=== PATIENT | female | born 1940 | race African-American/Black ===

== ENCOUNTER → 2016-07-18 | Outpatient (CLI) | payer OTHER ==
[~2016-07-18] VITALS: Ht 160 cm; Wt 86.2 kg
[~2016-07-18] MED LIST: ACID CONTROL20 MG PO; ADVAIR HFA115 MCG/21 INH; ALBUTEROL2.5 MG/0.1 INH; ALBUTEROL2.5 MG/31 INH; ALPRAZOLAM; AMITIZA8 MCG PO; AMITRIPTYLINE H10 M1 PO; AMITRIPTYLINE H50 M2 PO; AMITRIPTYLINE H50 M3 PO; AMLODIPINE-VAL1 EAC3 PO; ARICEPT10 MG PO; ASPIRIN EC81 M1 PO; BISACODYL SUPP10 MG RE; CARAFATE 1 GM TA1 G1 PO; CARAFATE1 GM/10 ML PO; CATAPRES-TTS 10.1 MG TD; CEFDINIR300 MG PO; CELEXA 10 MG TA10 M1 PO; CELEXA PO; CLONIDINE HCL0.2 M2 PO; DIOVAN320 MG PO; DOLOPHINE HCL10 MG PO; DOMPERIDONE PO; ENEMA133 ML RC; ENOXAPARIN40 MG/0.1 SUBQ; ERYPED 200200 MG/51; ERYPED 200200 MG/51 PO; EXFORGE PO; FISH OIL 1,0001 EAC5 PO; FLEXERIL PO; FUROSEMIDE; HYDROCODON-ACE1 EA10 PO; HYDROCODON-ACE1 EAC5 PO; HYDROCODONE-AP1 EA11 PO; IRON325 PO; JANUVIA50 MG PO; LACTOSE PO; LASIX 40 MG TAB40 M1 PO; LEVAQUIN 500 M500 M5 PO; LEVAQUIN 500 M500 M9 PO; LIPITOR20 MG PO; LOPRESSOR; LOPRESSOR25 PO; MACROBID 100 M100 M1 PO; MEDROLDOSEPACK PO; METFORMIN HCL500 MG PO; METHADONE HCL 110 M1 PO; METHADOSE10 M1 PO; MOBIC7.5 MG PO; MOM PO; MORPHINE; MOTION RELIEF25 MG PO; MS CONTIN15 MG PO; MS CONTIN30 MG PO; MUCINEX TA600 MG/TA2 PO; MULTIVITAMINS PO; NALOXONE H0.4 MG/1 M IV; NEURONTIN 300300 M1 PO; NEXIUM40 MG PO; NORCO 5-325 TA1 EACH PO; NORVASC10 MG PO; NOVOLOG100 UNIT/1 SQ; NUCYNTA50 MG PO; NYSTATIN 1100000 U/M SW&SWALLOW; OMEPRAZOLE10 MG PO; ONDANSETRON HCL4 M2 PO; OPANA ER10 M1 PO; OXYBUTYNIN 5 MG5 M2 PO; OXYCODONE HCL 55 MG PO; OXYCODONE HCL5 M1 PO; OXYCONTIN10 M1 PO; OXYCONTIN10 MG PO; OXYCONTIN20 M1 PO; PAIN & FEVER325 MG PO; PEPCID40 MG PO; POTASSIUM CHLO10 ME1 PO; POTASSIUM IV; REGLAN 10 MG TA10 MG PO; ROXICODONE5 M1 PO; SENNA PO; SENNA S TABLET1 EACH PO; SIMVASTATIN40 MG PO; SIMVASTATIN5 MG PO; SPIRIVA INH; SYNTHROID75 MCG PO; TOPROL XL25 MG PO; TYLENOL325 MG PO; VENTOLIN HFA 1818 GM INH; VITAMIN B COMP1 EACH PO; VITAMIN D-32000 UNIT PO; VITAMIN D1000 UNI1 PO; VITAMINC500 PO; XANAX 0.25 MG0.25 MG PO; XOPENEX HF1 UDINHALE IH; ZOFRAN 4 MG ORAL4 MG PO
--- NOTE | ~2016-07-18 | S ---
[facility] [address] [place] [address] SURGICAL PATH RPT PROCEDURE Name: ILEANA CASE Room #: REG SANDY Diallo#: [id number] Admission: 07/18/16 Date of : 44 Discharge: Report #: [id number] Path Case #: [id number] PATHOLOGY REPORT DRAFT COLLECTION DATE: 07/18/2016 RECEIVED DATE: 07/18/2016 SPECIMEN(S) RECEIVED: Teja clemens
--- NOTE | ~2016-07-18 | P ---
[facility] [place] [address] [place] [address] PROCEDURE REPORT Name: ILEANA CASE [id number] Admission: 07/18/16 Attend Phys: Arvind Wild Discharge: Date of : 42 Report #: [id number] THIS REPORT FOR: //name// CC: Arvind Ramon DO DATE OF SERVICE: 07/18/2016 PROCEDURE PERFORMED: Colonoscopy. HISTORY OF PRESENT ILLNESS: The patient is a 76-year-old female with recent Hemoccult positive stool. She denies any obvious bright red blood per rectum or melena. She does have a family history of colon cancer in her sister. DESCRIPTION OF PROCEDURE: The risks and benefits of the procedure were explained to the patient, those risks including but not limited to bleeding, perforation, the risk of sedation. She understood these risks and gave informed consent. Sedation was given using propofol per anesthesia. Next, a digital rectal exam was initially performed, which was normal. Next, using a standard Identian colonoscope, the scope was placed in the patient's anus and advanced under direct vision to the cecum. The overall prep was good. The cecum and ileocecal valve were normal in appearance. The ascending, transverse and descending colon were normal. Multiple diverticula were noted throughout the sigmoid colon, no evidence of inflammation, otherwise normal. The rectal mucosa was normal. On retroflexion, small nonbleeding internal hemorrhoids were noted, otherwise normal colonoscopy. The scope was then withdrawn and the procedure terminated. The patient tolerated the procedure well. IMPRESSION: 1. Sigmoid diverticulosis. 2. Small internal hemorrhoids. 3. Otherwise, normal colonoscopy. RECOMMENDATIONS: 1. No signs of bleeding or stigmata of bleeding on EGD or colonoscopy today. Hemoccult positive stools may be secondary to internal hemorrhoids. If the patient has a significant history of anemia, could consider proceeding with small bowel evaluation with ____ capsule, otherwise continue to monitor hemoglobin with oral iron therapy. 2. Repeat colonoscopy in 5 years due to family history[address] [facility] [address] [place] [address] PROCEDURE REPORT Name: ILEANA CASE Room #: REG SANDY Diallo#: [id number] Admission: 07/18/16 Attend Phys: Arvind Wild Discharge: Date of : 42 Report #: [id number] Thank you for allowing me to participate in her care. By: 1144 1303 Arvind Carvajal MD /nt
--- NOTE | ~2016-07-18 | P ---
[facility] [place] [address] [address] PROCEDURE REPORT Name: ILEANA CASE Room #: REG SANDY Diallo#: [id number] Admission: 07/18/16 Attend Phys: Arvind Wild Discharge: Date of : 42 Report #: [id number] THIS REPORT FOR: //name// CC: Arvind Ramon DO DATE OF SERVICE: 07/18/2016 PROCEDURE PERFORMED: Upper endoscopy with biopsy. HISTORY OF PRESENT ILLNESS: The patient is a 76-year-old female with a history of gastroparesis, currently on erythromycin which has been minimally helpful. She had previously taken Reglan in the past without much improvement and ___ is no longer available, which was helpful. She has had a Hemoccult positive stool and nausea. Plan is for EGD and colonoscopy today. DESCRIPTION OF PROCEDURE: The risks and benefits of the procedure were explained to the patient, those risks including but not limited to bleeding, perforation, the risk of sedation. She understood these risks and gave informed consent. Sedation was given using propofol per anesthesia. Next, using a standard Liquiversen upper endoscope, the scope was placed in the patient's mouth and advanced under direct vision to the esophagus, stomach and into the second portion of the duodenum. The esophagus was normal throughout. The GE junction was normal. Overall, the gastric mucosa was normal. Because of the patient's history of nausea, biopsies were obtained to rule out the possibility of H. pylori. The pylorus was normal and patent. The duodenal bulb, first and second portion were all normal. The scope was then withdrawn and the procedure terminated. The patient tolerated the procedure well. IMPRESSION: Normal upper endoscopy. RECOMMENDATIONS: We will proceed with colonoscopy next today. Thank you for allowing me to participate in her care. By: 1142 1257 Arvind Carvajal MD /nt
--- NOTE | ~2016-07-18 | EKG ---
[address] [address] ELECTROCARDIOGRAM REPORT Name: ILEANA CASE [facility] [id number] Admission: 07/18/16 Attend Phys: Arvind Wild Discharge: Date of : 42 Report #: [id number] THIS REPORT FOR: //name// [facility] Test Date: 2016-07-18 Test Time: 10:21:57 Pat Name: ILEANA CASE Department: Room: Gender: F [employer]: LEO : 1940 Requested By: Arvind Carvajal Order Number: [id number] MD: Measurements Intervals [place] Rate: 59 P: 18 AL: 176 QRS: -34 QRSD: 86 T: -31 QT: 433 QTc: 429 Interpretive Statements Sinus rhythm Left ventricular hypertrophy Inferior infarct, old Anterior Q waves, possibly due to LVH Lateral leads are also involved Compared to ECG 12/25/2014 08:00:02 Myocardial infarct finding now present Q waves now present Left-axis deviation no longer present ST (T wave) deviation no longer present [email or web address] By: 1021 1021 Epiphany Epiphany, SD /EPI
== END | disposition home or self-care (01) ==
LOC: GI 09:31
DX: R19.5 Other fecal abnormalities (principal); K64.8 Other hemorrhoids; K57.30 Diverticulosis of large intestine without perforation or abscess without bleeding; K31.84 Gastroparesis; F32.9 Major depressive disorder, single episode, unspecified; F41.9 Anxiety disorder, unspecified; J44.9 Chronic obstructive pulmonary disease, unspecified; G47.30 Sleep apnea, unspecified; J45.909 Unspecified asthma, uncomplicated; J43.9 Emphysema, unspecified; I10 Essential (primary) hypertension; E78.00 Pure hypercholesterolemia, unspecified; D64.9 Anemia, unspecified; G89.4 Chronic pain syndrome; E03.9 Hypothyroidism, unspecified; E11.9 Type 2 diabetes mellitus without complications; Z90.710 Acquired absence of both cervix and uterus
CPT/HCPCS: 62110

== ENCOUNTER → 2016-08-10 | Outpatient (CLI) | payer OTHER ==
[~2016-08-10] VITALS: Ht 157.5 cm; Wt 91.7 kg
[~2016-08-10] MED LIST changes: +OPANA10 MG PO; +PRIMIDONE50 MG PO
--- NOTE | ~2016-08-10 | HPC ---
[facility] [address] [address] PAIN MANAGEMENT CONSULTATION Name: ILEANA CASE Room #: REG SANDY BautistaDanyaZena.#: [id number] Admission: 08/10/16 Attend Phys: Indy Marley MD Discharge: Date of : 42 Report #: [id number] THIS REPORT FOR: //name// CC: Parmjit Ramon DO Keshia Marley DATE OF SERVICE: 08/10/2016 FOLLOWUP COMPLAINT: Things are going reasonably well. FOLLOWUP HISTORY: The patient is a very pleasant 76-year-old female who has been followed for a long time in the pain clinic. As you recall, she suffers from chronic back surgery. She has failed back syndrome. She has pain radiating down into her left buttocks and into her back. She notes stiffness, burning and intense pain and this can be quite problematic with standing, walking and with weather changes. She rates her pain as 7/10 at this juncture. She feels that her medications of oxymorphone and hydrocodone are quite helpful and would like to have been renewed at this juncture. She continues to try to stretch her medications and takes them only as necessary. PHYSICAL EXAMINATION: Blood pressure is 132/88, pulse 74, respiratory rate 16, room air saturation 100. The patient has pain and discomfort in the low back area as described. She also has numbness and tingling involving her right arm and down into her fingers. IMPRESSION: 1. Failed back syndrome with continued pain radiating down into her legs, status post surgery -- failed back syndrome. 2. Cervical radiculopathy involving her right arm with pain radiating down into the right fingers. 3. Chronic obstructive pulmonary disease. The patient states that her breathing is doing relatively well. She only uses the oxygen at night. RECOMMENDATIONS: A script for her medications have been written. She will continue to take hydrocodone 7.5 mg 1 p.o. t.i.d. as needed for pain control. She also will continue with oxymorphone 10 mg 1 p.o. b.i.d. She will call us if she has any problems with her medications. We would like to thank you for letting us participate in her care. We hope she continues to improve. By: 1332 2307 Indy Marley MD /thiago
[2016-08-10 10:46] VITALS: BP 132/88
== END | disposition home or self-care (01) ==
LOC: PAIN 06:35
DX: M54.12 Radiculopathy, cervical region (principal); J44.9 Chronic obstructive pulmonary disease, unspecified

== ENCOUNTER 2016-10-05 12:38 | Inpatient (IN) | payer OTHER ==
[~2016-10-05] VITALS: Ht 167.6 cm; Wt 95.8 kg
--- NOTE | ~2016-10-05 | EKG ---
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: [id number] : 1940 Requested By: Cheo Lomas Order Number: [id number] MD: Bruce Enriquez Measurements Intervals [place] Rate: 69 P: 21 SD: 164 QRS: -34 QRSD: 83 T: -22 QT: 383 QTc: 411 Interpretive Statements Sinus rhythm Consider left atrial enlargement Left ventricular hypertrophy Inferior infarct, age indeterminate Anterior Q waves, possibly due to LVH Baseline wander in lead(s) V5,V6 Compared to ECG 07/18/2016 10:21:57 No significant change was found Electronically Signed On 10-08-2016 8:26:50 CDT by Bruce Enriquez [email or web address] <ELECTRONICALLY SIGNED> By: Bruce Enriquez MD, FAC 10/08/16 0826 1319 1319 Bruce Enriquez MD, FAC /EPI
--- NOTE | ~2016-10-05 | 2DMMODE ---
[facility] [address] [employer] [place] [address] 2 D/M-MODE ECHOCARDIOGRAM Name: EVIEILEANA SALVADOR Room #: 246-P ADM IN M.R.#: [id number] Admission: 10/05/16 Attend Phys: Juan Francisco Mast, Discharge: Date of : 44 Date of Service: 10/08/16 1030 Report #: [id number] THIS REPORT FOR: //name// APPROVED REPORT Study performed: 10/08/2016 09:37:52 EXAM: Comprehensive 2D, Doppler, and color-flow Echocardiogram Patient Location: Bedside Room #: [facility] Status: routine Other Information Study Quality: Good Indications Congestive Heart Failure COPD Diabetes Hypertension/HDD 2D Dimensions RVDd: 30.19 mm LVEF(%): 75.46 (>50%) IVSd: 10.91 (7-11mm) LVOT Diam: 21.14 (18-24mm) LVDd: 43.04 mm PWd: 12.88 (7-11mm) Ascending Ao: 31.31 (22-36mm) LVDs: 24.13 (25-40mm) Aortic Root: 29.54 mm IVC: 16.00 mm Pa's LVEF: 75.46 % Volumes Left Atrial Volume (Systole) Single Plane 4CH: 35.84 mL Single Plane 2CH: 40.84 mL LA ESV Index: 23.00 mL/m2 Aortic Valve AoV Peak Moo.: 1.75 m/s AO Peak Gr.: 12.24 mmHg LVOT Max P.69 mmHg LVOT Max V: 1.39 m/s REYMUNDO Vmax: 2.78 cm2 Mitral Valve E/A Ratio: 0.8 MV Decel. Time: 166.27 ms MV E Max Moo.: 0.93 m/s [facility] [place] [address] 2 D/M-MODE ECHOCARDIOGRAM Name: ILEANA CASE MADELEINE Room #: 246-P ADM IN M.R.#: [id number] Admission: 10/05/16 Attend Phys: Juan Francisco Mast, Discharge: Date of : 44 Date of Service: 10/08/16 1030 Report #: [id number] A Moo.: 1.15 m/s MV PHT: 48.22 ms IVRT: 103.81 ms Pulmonary Valve PV Peak Moo.: 1.12 m/s PV Peak Gr.: 5.03 mmHg Pulmonary Vein P Vein S: 0.60 m/s P Vein A: 0.17 m/s P Vein D: 0.38 m/s P Vein A Dur.: 93.4 msec P Vein S/D Ratio: 1.58 Tricuspid Valve TR Peak Moo.: 2.90 m/s RAP Estimate: 5.00 mmHg TR Peak Gr.: 33.63 mmHg Left Ventricle The left ventricle is normal size. Mild concentric left ventricular hypertrophy. Left ventricular systolic function is normal. LVEF is 65%. Mild diastolic dysfunction is present (impaired relaxation pattern). Right Ventricle The right ventricle is normal size. The right ventricular systolic function is normal. Atria The left atrium size is normal. The right atrium size is normal. Aortic Valve The aortic valve is normal in structure. No aortic regurgitation is present. There is no aortic valvular stenosis. Mitral Valve The mitral valve is normal in structure. Trace mitral regurgitation. No evidence of mitral valve stenosis. Tricuspid Valve The tricuspid valve is normal in structure. There is trace to mild tricuspid regurgitation. The right atrial pressure is estimated at 5 mmHg. PAP is estimated at 39 mmHg. Pulmonic Valve The pulmonary valve is normal in structure. There is no pulmonic valvular regurgitation. [facility] [address] [place] [address] 2 D/M-MODE ECHOCARDIOGRAM Name: ILEANA CASE Room #: 246-P ADM IN M.R.#: [id number] Admission: 10/05/16 Attend Phys: Juan Francisco Mast, Discharge: Date of : 44 Date of Service: 10/08/16 1030 Report #: [id number] [place] Vessels The aortic root is normal in size. IVC is normal in size and collapses >50% with inspiration. <Conclusion> The left ventricle is normal size. Mild concentric left ventricular hypertrophy. Left ventricular systolic function is normal. Mild diastolic dysfunction is present (impaired relaxation pattern). The right ventricle is normal size. The left atrium size is normal. The aortic valve is normal in structure. Trace mitral regurgitation. There is trace to mild tricuspid regurgitation. The right atrial pressure is estimated at 5 mmHg. PAP is estimated at 39 mmHg. <ELECTRONICALLY SIGNED> By: Nabor Shi MD 10/08/16 1030 1030 Nabor Shi MD /INF
[2016-10-05 12:42] VITALS: BP 145/93
[2016-10-05 13:16] LABS: ABG SAMPLE TYPE ARTERIAL; BE(vivo) 2.2 mmol/L (-2 to +3); HCO3 27.7 mmol/L (22.0-26.0); O2(CT) 17.6 mL/dL (15.0-23.0); O2Hb 94.6 % (92.0-98.0); PCO2 46.3 mmHg (35.0-45.0); PO2 80.5 mmHg (80.0-100.0); pH 7.394 (7.360-7.450); sO2 95.8 % (92.0-98.0); tCO2 29.1 mmol/L (24.0-30.0)
[2016-10-05 13:18] LABS: ABG COMMENT NO COMPLICATIONS; STICK SITE L.RADIAL
[2016-10-05 13:19] LABS: Pressure Support 12 cm H20
[2016-10-05 13:27] LABS: ABSOLUTE NEUTROPHILS 4.6 thou/uL (1.4-8.2); BASOPHILS 0.7 % (0.0-2.0); EOSINOPHILS 1.1 % (0.0-3.0); HEMATOCRIT 36.6 % (37.0-47.0); HEMOGLOBIN 12.2 gm/dL (12.0-15.0); LYMPHOCYTES 25.9 % (24.0-44.0); MCH 30.4 pg (26.0-34.0); MCHC 33.3 g/dL (28.0-37.0); MCV 91.5 fL (80.0-100.0); MONOCYTES 6.9 % (1.0-8.0); PLATELET COUNT 294 thou/uL (150-400); POLYS 65.4 % (36.0-66.0)
[2016-10-05 13:35] LABS: MANUAL DIFF NO
[2016-10-05 13:53] LABS: ANION GAP 12 mmol/L (7-16); BUN 16 mg/dL (7-18); CALCIUM 9.3 mg/dL (8.5-10.1); CHLORIDE 105 mmol/L (98-107); CO2 29 mmol/L (21-32); CREATININE 1.2 mg/dL (0.6-1.0); GLUCOSE 119 mg/dL (74-106); POTASSIUM 3.8 mmol/L (3.5-5.1); SODIUM 146 mmol/L (136-145)
[2016-10-05 14:00] LABS: APTT 24.2 Seconds (24.5-32.8); PROTIME 10.5 Seconds (9.3-11.4)
[2016-10-05 14:10] LABS: ALBUMIN 3.2 g/dL (3.4-5.0); ALKALINE PHOSPHATASE 85 U/L (46-116); MAGNESIUM 1.8 mg/dL (1.8-2.4); NT-PRO BRAIN NAT PEPTIDE 69 pg/mL (<300); SGOT 18 U/L (15-37); SGPT 17 U/L (30-65); TOTAL BILIRUBIN 0.2 mg/dL (<0.1-1.0); TOTAL PROTEIN 6.5 g/dL (6.4-8.2); TROPONIN-I < 0.04 ng/mL (<0.04-0.07)
[2016-10-05 14:32] LABS: CK-MB MASS < 0.5 ng/mL (<0.5-3.6)
[2016-10-05 15:47] VITALS: BP 113/72
[2016-10-05 16:45] VITALS: BP 115/68
[2016-10-05 16:48] VITALS: BP 114/75
[2016-10-05 20:53] VITALS: BP 124/65
[2016-10-06 04:49] VITALS: BP 128/72
[2016-10-06 07:04] VITALS: BP 145/117
[2016-10-06 09:28] LABS: ABG SAMPLE TYPE ARTERIAL; BE(vivo) -1.1 mmol/L (-2 to +3); HCO3 24.8 mmol/L (22.0-26.0); LACTATE 3.43 mmol/L (0.5-2.0); O2(CT) 17.8 mL/dL (15.0-23.0); O2Hb 97.5 % (92.0-98.0); PCO2 46.1 mmHg (35.0-45.0); PO2 129.2 mmHg (80.0-100.0); pH 7.349 (7.360-7.450); sO2 98.4 % (92.0-98.0); tCO2 26.2 mmol/L (24.0-30.0)
[2016-10-06 09:30] LABS: STICK SITE R.RADIAL
[2016-10-06 11:26] VITALS: BP 144/77
[2016-10-06 12:35] LABS: ANION GAP 9 mmol/L (7-16); BUN 26 mg/dL (7-18); CALCIUM 9.1 mg/dL (8.5-10.1); CHLORIDE 105 mmol/L (98-107); CO2 25 mmol/L (21-32); CREATININE 1.3 mg/dL (0.6-1.0); GLUCOSE 162 mg/dL (74-106); SODIUM 139 mmol/L (136-145)
[2016-10-06 12:48] LABS: ALBUMIN 3.2 g/dL (3.4-5.0); ALKALINE PHOSPHATASE 86 U/L (46-116); NT-PRO BRAIN NAT PEPTIDE 87 pg/mL (<300); SGOT 13 U/L (15-37); SGPT 19 U/L (30-65); TOTAL BILIRUBIN 0.3 mg/dL (<0.1-1.0); TOTAL PROTEIN 6.7 g/dL (6.4-8.2); TROPONIN-I < 0.04 ng/mL (<0.04-0.07)
[2016-10-06 15:03] VITALS: BP 107/63
[2016-10-06 19:27] VITALS: BP 152/109
[2016-10-06 23:26] VITALS: BP 143/77
[2016-10-07] VITALS (20 sets, daily range): BP systolic 123–180; BP diastolic 63–108
[2016-10-07 06:41] LABS: ABG SAMPLE TYPE ARTERIAL; BE(vivo) 0.7 mmol/L (-2 to +3); HCO3 26.1 mmol/L (22.0-26.0); LACTATE 1.68 mmol/L (0.5-2.0); O2(CT) 17.5 mL/dL (15.0-23.0); O2Hb 96.7 % (92.0-98.0); PCO2 44.6 mmHg (35.0-45.0); PO2 99.7 mmHg (80.0-100.0); pH 7.385 (7.360-7.450); sO2 97.4 % (92.0-98.0); tCO2 27.5 mmol/L (24.0-30.0)
[2016-10-07 06:42] LABS: ABG COMMENT NO COMPLICATIONS; Pressure Support 14 cm H20; STICK SITE R.RADIAL
[2016-10-08] VITALS (12 sets, daily range): BP systolic 120–164; BP diastolic 67–86
[2016-10-08 03:51] LABS: CALCIUM 8.6 mg/dL (8.5-10.1); CREATININE 1.3 mg/dL (0.6-1.0); MAGNESIUM 1.9 mg/dL (1.8-2.4); POTASSIUM 3.8 mmol/L (3.5-5.1)
[2016-10-08 04:10] LABS: HEMATOCRIT 35.9 % (37.0-47.0); HEMOGLOBIN 11.7 gm/dL (12.0-15.0); MCH 29.7 pg (26.0-34.0); MCHC 32.5 g/dL (28.0-37.0); MCV 91.1 fL (80.0-100.0); RBC 3.94 mil/uL (4.20-5.00); RDW 14.2 % (10.5-14.5); WBC 21.8 thou/uL (4.0-11.0)
[2016-10-09 05:23] LABS: HEMATOCRIT 35.8 % (37.0-47.0); HEMOGLOBIN 11.6 gm/dL (12.0-15.0); MCH 29.5 pg (26.0-34.0); MCHC 32.4 g/dL (28.0-37.0); MCV 90.8 fL (80.0-100.0); PLATELET COUNT 330 thou/uL (150-400); RBC 3.94 mil/uL (4.20-5.00); RDW 14.2 % (10.5-14.5)
[2016-10-09 05:27] LABS: CALCIUM 8.4 mg/dL (8.5-10.1); POTASSIUM 4.2 mmol/L (3.5-5.1)
[2016-10-09 05:28] LABS: MANUAL DIFF YES
[2016-10-09 07:46] LABS: ABSOLUTE NEUTROPHILS 17.9 thou/uL (1.4-8.2); ANISOCYTOSIS SLIGHT; POIKILOCYTOSIS SLIGHT; TOTAL CELL COUNT 100
[2016-10-09 11:41] VITALS: BP 157/91
[2016-10-09 16:41] VITALS: BP 158/100
[2016-10-09 17:49] VITALS: BP 151/84
[2016-10-09 20:20] VITALS: BP 142/74
[2016-10-09 23:56] VITALS: BP 156/95
[2016-10-10 03:00] LABS: HEMATOCRIT 35.4 % (37.0-47.0); HEMOGLOBIN 11.8 gm/dL (12.0-15.0); MCH 30.1 pg (26.0-34.0); MCHC 33.2 g/dL (28.0-37.0); MCV 90.6 fL (80.0-100.0); PLATELET COUNT 341 thou/uL (150-400); RBC 3.91 mil/uL (4.20-5.00); RDW 14.4 % (10.5-14.5); WBC 19.1 thou/uL (4.0-11.0)
[2016-10-10 03:13] LABS: MANUAL DIFF YES
[2016-10-10 03:18] LABS: CALCIUM 8.3 mg/dL (8.5-10.1); CREATININE 1.2 mg/dL (0.6-1.0); POTASSIUM 4.3 mmol/L (3.5-5.1)
[2016-10-10 03:23] VITALS: BP 147/85
[2016-10-10 04:31] LABS: ABSOLUTE NEUTROPHILS 16.2 thou/uL (1.4-8.2); METAMYELOCYTES 1 %; MYELOCYTES 1 %; TOTAL CELL COUNT 100
[2016-10-10 07:27] VITALS: BP 146/79
[2016-10-10 11:31] VITALS: BP 164/107
[2016-10-10 15:10] LABS: c-ANCA <1:20 titer (Neg:<1:20); p-ANCA <1:20 titer (Neg:<1:20)
[2016-10-10 15:32] VITALS: BP 139/74
[2016-10-10 20:27] VITALS: BP 174/104
[2016-10-11 04:32] VITALS: BP 156/96
[2016-10-11 07:10] VITALS: BP 194/117
[2016-10-11] MEDS ORDERED: HYDROCODONE-AP1 EA11 PO (09:43)
[2016-10-11] MEDS ORDERED: OPANA ER10 M1 PO (09:43)
[2016-10-11 10:46] LABS: HEMATOCRIT 37.1 % (37.0-47.0); HEMOGLOBIN 12.4 gm/dL (12.0-15.0); MCH 29.9 pg (26.0-34.0); MCHC 33.5 g/dL (28.0-37.0); MCV 89.3 fL (80.0-100.0); PLATELET COUNT 372 thou/uL (150-400); RBC 4.15 mil/uL (4.20-5.00); RDW 14.1 % (10.5-14.5); WBC 18.3 thou/uL (4.0-11.0)
[2016-10-11 10:48] LABS: MANUAL DIFF YES
[2016-10-11 10:53] LABS: CALCIUM 8.6 mg/dL (8.5-10.1); POTASSIUM 4.4 mmol/L (3.5-5.1)
[2016-10-11 11:20] VITALS: BP 151/94
[2016-10-11 12:00] LABS: ABSOLUTE NEUTROPHILS 14.8 thou/uL (1.4-8.2); PLATELET ESTIMATE NORMAL; TOTAL CELL COUNT 100
[2016-10-11 15:40] VITALS: BP 157/96
== END 2016-10-11 17:28 | DRG 189 ==
LOC: ER 12:38 → 4W 15:14 → EROBS 15:14 → ICU 15:14 → 4W 16:08 → ICU 10-07 08:16 → 2N 10-09 11:21
PROVIDERS: Emergency Medicine; Family Medicine; Internal Medicine; Internal Medicine Pulmonary Disease
PROC: 5A09357 Assistance with Respiratory Ventilation, Less than 24 Consecutive Hours, Continuous Positive Airway Pressure (ICD-10-PCS; principal; 2016-10-10)
DX: J96.20 Acute and chronic respiratory failure, unspecified whether with hypoxia or hypercapnia (principal); G93.41 Metabolic encephalopathy; J44.1 Chronic obstructive pulmonary disease with (acute) exacerbation; F11.20 Opioid dependence, uncomplicated; J45.901 Unspecified asthma with (acute) exacerbation; G89.4 Chronic pain syndrome; M48.00 Spinal stenosis, site unspecified; E11.9 Type 2 diabetes mellitus without complications; B02.9 Zoster without complications; F41.9 Anxiety disorder, unspecified; F32.9 Major depressive disorder, single episode, unspecified; E78.00 Pure hypercholesterolemia, unspecified; I10 Essential (primary) hypertension; E03.9 Hypothyroidism, unspecified; K21.9 Gastro-esophageal reflux disease without esophagitis; G47.33 Obstructive sleep apnea (adult) (pediatric); Z79.899 Other long term (current) drug therapy; Z86.711 Personal history of pulmonary embolism; Z88.0 Allergy status to penicillin; Z88.2 Allergy status to sulfonamides; Z88.8 Allergy status to other drugs, medicaments and biological substances; Z90.710 Acquired absence of both cervix and uterus; Z99.81 Dependence on supplemental oxygen; Z79.82 Long term (current) use of aspirin
CPT/HCPCS: 10040; 10081; 10196

== ENCOUNTER → 2016-12-12 | Outpatient (CLI) | payer OTHER ==
[~2016-12-12] VITALS: Ht 160 cm; Wt 92.5 kg
[~2016-12-12] MED LIST changes: +REQUIP1 MG PO
--- NOTE | ~2016-12-12 | HPC ---
[facility] [place] [address] PAIN MANAGEMENT CONSULTATION Name: ILEANA CASE Room #: REG [facility]#: [id number] Admission: 12/12/16 Attend Phys: Indy Marley MD Discharge: Date of : 42 Report #: [id number] THIS REPORT FOR: //name// CC: Parmjit Marley DATE OF SERVICE: 12/12/2016 FOLLOWUP COMPLAINT: "Here for my medications. My back still seems like it is getting worse, but I am not going to have another surgery." FOLLOWUP HISTORY: The patient is a 76-year-old female who has been seen and followed in the pain clinic because of chronic pain associated with her back. She is noting worsening pain and discomfort today involving the left shoulder. Palpation of this area shows a very tender point in the area of her trapezius. She feels that this has been making it more difficult for her to engage in activities of daily living as well as cause problems if she is carrying any items. PHYSICAL EXAMINATION: Blood pressure is 140/78, pulse 82, respiratory rate 16, room air saturation 98%. Height 5 feet 3 inches, weight 204 pounds, BMI is 36. She has not fallen since we saw her last. She continues to have pain and discomfort in the low back area. As you recall, she has had a significant surgery involving the lower portion of her back. She has pain and discomfort with a trigger point in the left trapezius area. Palpation in this area causes a reproduction of her pain. IMPRESSION: 1. Myofascial pain, left shoulder, trigger point. 2. Failed back syndrome, continues to find the pain radiates down into her legs, walks with use of a cane - failed back syndrome. 3. Cervical radiculopathy involving the right arm with pain radiating down into her fingers, which is a neuropathic type of discomfort. 4. Chronic obstructive pulmonary disease. The patient states her breathing is relatively stable at this juncture. Continues to use oxygen at night. RECOMMENDATIONS: We will proceed with a trigger point injection to the left trapezius area. Risks and benefits of the procedure were again reviewed. They include possibility of infection, increased muscle soreness, pneumothorax. She elects to proceed. PROCEDURE NOTE: The patient's shoulder was sterilely prepped with a chlorhexidine solution. A 25-gauge needle was then advanced into the mid portion of the trapezius involving the trigger point. After the trigger point [address] [address] PAIN MANAGEMENT CONSULTATION Name: ILEANA CASE Room #: REG CLI [facility]#: [id number] Admission: 12/12/16 Attend Phys: Indy Marley MD Discharge: Date of : 42 Report #: [id number] was elicited, a total of 10 mL of 0.5% bupivacaine and 40 mg triamcinolone was injected. The patient had no problems with respiratory symptoms during her stay. She will follow up in the near future. A script for her medications of hydrocodone 7.5 mg 1 p.o. t.i.d. and OxyContin 10 mg 1 p.o. b.i.d. has been written. Oxymorphone is no longer available. By: 0856 1301 Indy Marley MD /FANY
[2016-12-12 09:46] VITALS: BP 140/78
== END | disposition home or self-care (01) ==
LOC: PAIN 07:18
DX: M79.1 Myalgia (principal); M54.12 Radiculopathy, cervical region; J44.9 Chronic obstructive pulmonary disease, unspecified; Z68.36 Body mass index [BMI] 36.0-36.9, adult

== ENCOUNTER → 2017-02-13 | Outpatient (CLI) | payer OTHER, SELFPAY ==
[~2017-02-13] VITALS: Ht 160 cm; Wt 89.8 kg
[~2017-02-13] MED LIST changes: +EMBEDA ER 30-11 EACH PO
--- NOTE | ~2017-02-13 | HPC ---
[facility] [place] [address] [place] [address] PAIN MANAGEMENT CONSULTATION Name: ILEANA CASE Room #: REG [facility]#: [id number] Admission: 02/13/17 Attend Phys: Indy Marley MD Discharge: Date of : 42 Report #: [id number] THIS REPORT FOR: //name// CC: Parmjit Marley DATE OF SERVICE: 12/12/2016 FOLLOWUP COMPLAINT: "Bextra made me sick." FOLLOWUP HISTORY: The patient is a 76-year-old female who has been followed in the pain clinic because of chronic pain. As you recall, she has had significant back surgery. She continues to have pain and discomfort, which is problematic. She was tried on Embeda and this caused some nausea. At this juncture, we will try morphine, which she has been given a script for MS Contin 15 mg 1 p.o. b.i.d. Hopefully, she will be able to take this medication without problem. Her insurance company has refused to pay for OxyContin at this juncture. This has been the only medication, which she has been able to take. Opana was a good medication and worked well, but that one currently is no longer on the market. Her insurance company has required that she try the possible medications on their formulary and she has returned to get a new script to comply with their wishes. PHYSICAL EXAMINATION: The patient is alert. No evidence of over sedation. She did return Embeda. IMPRESSION: 1. The patient continues to have myofascial pain involving her shoulder. 2. Failed back syndrome. Continues to have pain that radiates down into her legs. Continues to walk with a cane - failed back syndrome. 3. Cervical radicular pain involving the right arm radiating down into her fingers with neuropathic types of discomfort. 4. Chronic obstructive pulmonary disease. The patient states that her breathing is relatively stable today. Continues with oxygen at night. RECOMMENDATION: The patient has been given a script for MS Contin. She will try this medication and note its efficacy. She will call us if she has any problems with her medications. We would like to thank you for letting us participate in her care. We hope she continues to improve. <ELECTRONICALLY SIGNED> By: Indy Marley MD 03/20/17 0837 1427 1448 Indy Marley MD /[facility]
[2017-02-13 10:32] VITALS: BP 126/76
== END ==
LOC: PAIN 07:04
DX: G89.29 Other chronic pain (principal); M79.1 Myalgia; M54.12 Radiculopathy, cervical region; J44.9 Chronic obstructive pulmonary disease, unspecified

== ENCOUNTER → 2017-06-19 | Outpatient (CLI) | payer OTHER, SELFPAY ==
[~2017-06-19] VITALS: Ht 157.5 cm; Wt 87.0 kg
--- NOTE | ~2017-06-19 | HPC ---
[facility] [address] [place] [address] PAIN MANAGEMENT CONSULTATION Name: ILEANA CASE Room #: REG [facility].#: [id number] Admission: 06/19/17 Attend Phys: Indy Marley MD Discharge: Date of : 44 Report #: [id number] THIS REPORT FOR: //name// CC: Parmjit Marley DATE OF SERVICE: 06/19/2017 FOLLOWUP COMPLAINT: Here for medication renewal. FOLLOWUP HISTORY: The patient is a 76-year-old female who has been followed in the pain clinic for quite a number of years. She suffers from chronic pain and discomfort involving her low back. She suffers from failed back syndrome. As you recall, she has rods as well as the pedicle screws in the lower back. She also continues to have some pain and discomfort involving her hands. She has noticed some problems with her hands at this juncture secondary to tremors. Notes that the tremors have become more and more problematic. She states that she has been seen her neurologist and that she has been started on some medications with the intent on improving her hand shaking. Still finds it is quite problematic. She is unable to do items such as quilting or sewing which required some dexterity. Overall, she is doing reasonably well with the pain medication and would like to continue its use. She has had no complications from it. Has no problems with mentation. No significant problems with bowel or bladder dysfunction. She is aware that opioid medications can be addictive/cause tolerance. Overall, her medications going reasonably well and she would like to continue with it at the current dosing. ALLERGIES: PENICILLIN, SULFA, CHLORZOXAZONE. CURRENT MEDICATIONS: Morphine sulfate 15 mg b.i.d., hydrocodone 7.5 mg 1 p.o. t.i.d., Requip 1 mg t.i.d., AccuNeb 2.5/3 2 puffs inhalation p.r.n., asthma/COPD, oxybutynin 5 mg at bedtime, amlodipine/valsartan 10/325, iron 325, Aricept 10 mg at bedtime, erythromycin 200 mg before meals, Nexium 40 mg, metoprolol 25 mg XL b.i.d., metformin 500 mg b.i.d., Zofran 4 mg q. 6 hours p.r.n. nausea and vomiting, Diovan 320, Neurontin 300 mg t.i.d., amitriptyline 500 mg, Synthroid 75 mcg, Lipitor 20 mg at bedtime, vitamin D3, ascorbic acid 500 mg, Celexa 10 mg, aspirin 81 mg, multivitamin, Januvia 50 mg, Lasix 40 mg tablet, alprazolam 0.25 mg, anxiety, potassium 10 mEq b.i.d., clonidine 0.2 mg b.i.d. PAIN CLINIC ASSESSMENT: 1. History of osteoarthritis, has problems with her hands, knees and back, not being treated for rheumatoid arthritis. 2. Height 5 feet 2 inches, weight 191 pounds, BMI 35.1. [address] [address] PAIN MANAGEMENT CONSULTATION Name: ILEANA CASE Room #: REG [facility]#: [id number] Admission: 06/19/17 Attend Phys: Indy Marley MD Discharge: Date of : 42 Report #: [id number] 3. Vital signs, blood pressure 146/98, pulse 77, respiratory rate 20, room air saturation 100%. 4. Pain intensity 10. 5. Fall risk. The patient does need some help standing. She uses a cane. She has not fallen in the last 3 months. 6. Blood thinners. The patient is not on a blood thinner. 7. History of hypertension. The patient has been treated for hypertension. 8. Opioid therapy greater than 6 weeks. The patient is on regimen and receives opioid medications from the pain clinic. 9. Risk assessment tool, opioid risk tool. 10. Functional assessment tool, showing some moderate problems with activity of daily living because of her pain. 11. Recreational drug use. Denies use of recreational drugs. 12. Tobacco: The patient has never smoked. 13. Alcohol. The patient denies use of alcoholic beverages. PHYSICAL EXAMINATION: GENERAL: The patient is a well-developed black female, appears her stated age. She is alert and oriented x 3. Affect is appropriate. The patient is somewhat of nervous, disposition around her. Hands are shaking somewhat vigorously secondary to "tremors." HEENT: Normocephalic, atraumatic. Extraocular eye muscles intact. Hearing is within normal limits. Mucous membranes are moist. Sclerae is not injected. NECK: Without adenopathy. HEART: Regular rate. ABDOMEN: Protuberant. CHEST: Clear to auscultation, somewhat decreased breath sounds. EXTREMITIES: Upper extremities, some weakness in the right arm. The patient has some significant movement/jitteriness in her hands. Jitteriness persist even with movement. Has some difficulty folding up the scripts she has been handed because of movement. Lower extremity, the patient complains of pain and discomfort in the lower portion of her back with pain radiating down into her legs bilaterally. IMPRESSION: 1. Failed back syndrome, which continues to radiate down into her legs. The patient walks with a cane. 2. Continue myofascial pain involving her shoulder. 3. Cervical pain involving the right arm with radiation down into her fingers with neuropathic type of pain and discomfort. 4. Jitteriness. The patient states that she is taking Requip 3 mg daily for the nervousness in her hands. 5. Chronic obstructive pulmonary disease states that her breathing is relatively stable. 6. Oxygen use at night. 7. Hypertension. [facility] [address] [place] [address] PAIN MANAGEMENT CONSULTATION Name: ILEANA CASE Room #: REG [facility].#: [id number] Admission: 06/19/17 Attend Phys: Indy Marley MD Discharge: Date of : 44 Report #: [id number] 8. Hypothyroidism. 9. Gastroparesis. 10. History of IVC filter. 11. History of seizure at the time of her lumbar laminectomy. 12. Asthma. 13. PE in 2008. 14. History of shingles. RECOMMENDATIONS: We discussed treatment options with the patient. We will continue with her MS Contin. A script for her hydrocodone has been written. The patient continues to have a significant amount of nervousness. She states that she will continue to follow up with her primary physician/neurologist regarding the jitteriness involving her hands The patient will follow up in the future as needed. We would like to thank you for letting us participate in her care. We hope she continues to improve. <ELECTRONICALLY SIGNED> By: Indy Marley MD 06/28/17 08 1348 0012 Indy Marley MD /thiago
[2017-06-19 10:53] VITALS: BP 146/98
== END ==
LOC: PAIN 06:55
DX: M54.2 Cervicalgia (principal); J44.9 Chronic obstructive pulmonary disease, unspecified; E03.9 Hypothyroidism, unspecified; I10 Essential (primary) hypertension; M79.1 Myalgia; K31.84 Gastroparesis

== ENCOUNTER → 2017-09-13 | Outpatient (CLI) | payer OTHER, SELFPAY ==
[~2017-09-13] VITALS: Ht 160 cm; Wt 84.8 kg
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
[2017-09-13 10:55] VITALS: BP 129/85
== END ==
LOC: PAIN 06:54
DX: M54.5 Low back pain (principal); M54.2 Cervicalgia; G89.29 Other chronic pain; M79.1 Myalgia; J44.9 Chronic obstructive pulmonary disease, unspecified; E03.9 Hypothyroidism, unspecified; K31.84 Gastroparesis; R45.0 Nervousness

== ENCOUNTER → 2018-01-17 | Outpatient (CLI) | payer OTHER ==
[~2018-01-17] VITALS: Ht 160 cm; Wt 84.8 kg
[~2018-01-17] MED LIST changes: +SINGULAIR 10 MG10 M1 PO
[2018-01-17 10:55] VITALS: BP 139/97
== END ==
LOC: PAIN 06:51
DX: M54.5 Low back pain (principal); M25.559 Pain in unspecified hip; M79.605 Pain in left leg; M79.604 Pain in right leg; Z79.899 Other long term (current) drug therapy; Z79.891 Long term (current) use of opiate analgesic; Z72.89 Other problems related to lifestyle

== ENCOUNTER → 2018-05-07 | Outpatient (CLI) | payer OTHER ==
[~2018-05-07] VITALS: Ht 160 cm; Wt 85.3 kg
--- NOTE | ~2018-05-07 | HPC ---
[facility] [place] [address] PAIN MANAGEMENT CONSULTATION Name: ILEANA CASE Room #: REG [facility].#: [id number] Admission: 05/07/18 ������������������ Attend Phys: Indy Marley MD Discharge: ������������������ Date of : 44 Report #: [id number] THIS REPORT FOR: //name// CC: Parmjit Ramon DO Keshia Marley DATE OF SERVICE: 05/07/2018 CHIEF COMPLAINT: Here for renewal of the medications. I did have the flu. HISTORY: The patient is a 77-year-old female who has been followed in the pain clinic for quite a number of years. As you recall, she has chronic back pain. She has had back surgeries on a number of occasions. She still continues to have pain as a result of failed back syndrome. She has recently had the flu. States that she feels like she is getting over it. She did take a lot out of her. She feels that her medications continue to be helpful. She has returned today for renewal of the medications. She rates her pain as 7/10. Continues to use oxygen at home. Has pain in the low back area as well as pain down into her legs bilaterally. Continues to have some exacerbation of pain, which she is standing, walking, and with the changes in weather pattern we had found it trying to stay abreast of her pain. ALLERGIES: PENICILLIN, SULFA, CHLORZOXAZONE. MEDICATIONS: Morphine sulfate 15 mg b.i.d., hydrocodone 7.5 mg t.i.d., Requip 1 mg t.i.d., AccuNeb 2.5/3 2 puffs inhale elevation, asthma/COPD. Again, that was COPD, 5 mg at bedtime, amlodipine/valsartan 10/325, iron 325 mg, Aricept 10 mg at bedtime, Nexium 40 mg, metoprolol 25 mg XL b.i.d., metformin 500 mg b.i.d., Zofran 4 mg q. nausea, Diovan 320, Neurontin 300 mg t.i.d., amitriptyline, Synthroid 7.5 mcg, Lipitor 20 mg at bedtime, multivitamin D3, ascorbic acid 500 mg, Celexa 10 mg, aspirin 81 mg, multivitamin, Januvia 50 mg, Lasix 40 mg, alprazolam 0.25 mg, potassium 10 mEq b.i.d., Klor-Con, clonidine 0.2 mg b.i.d. PAIN CLINIC ASSESSMENT/PQRS: 1. The patient has a history of osteoarthritis involving her hands, knees, back and the patient is not being treated for rheumatoid arthritis. 2. Height 5 feet 3 inches, weight 180 pounds, BMI is 33. 3. Vital Signs: Blood pressure 132/83, pulse 77, respiratory rate 15, room air saturation 98%. 4. Pain intensity 7/10. 5. Fall risk. The patient has not fallen in the past 3 months. Continues to use her cane. 6. Blood thinner. The patient is not on a blood thinning medication. 7. Hypertension. The patient is being treated for hypertension. [address] [address] PAIN MANAGEMENT CONSULTATION Name: ILEANA CASE Room #: REG [facility].#: [id number] Admission: 05/07/18 ������������������ Attend Phys: Indy Marley MD Discharge: ������������������ Date of : 44 Report #: [id number] 8. Opioid greater than 6 weeks. The patient receives her medication from one source, the pain clinic. 9. Risk assessment tool, low for opioid use. 10. Functional assessment tool . 11. Recreational drug use. The patient denies use of recreational drugs. 12. Tobacco: The patient denies use of tobacco. 13. Alcohol: The patient denies frequent use of alcoholic beverages. PHYSICAL EXAMINATION: GENERAL: The patient is a well-developed, well-nourished black female, appears her stated age. She is alert and oriented x 3. Affect is appropriate. Speech is fluent. HEENT: Normocephalic, atraumatic. Extraocular muscles intact. Sclerae nonicteric. Mucous membranes are moist. NECK: Without adenopathy or JVD. HEART: Regular rate. ABDOMEN: Nontender. Bowel sounds present. CHEST: Decreased breath sounds bilaterally. EXTREMITIES: The patient without significant scoliosis, kyphosis or lordosis. The patient has some jitteriness months her hands bilaterally. Muscle strength in the upper extremity judged to be 4+/5 for the major muscle groups and in the lower extremity, 5-/5 for the lower extremities. The patient has pain and discomfort in low back area. IMPRESSION: 1. Failed back syndrome with continued pain radiating down into the legs. The patient walks with use of a cane. 2. Continued myofascial pain involving her shoulders. 3. Cervical pain involving the right arm with radiation down to the fingers with neural past discomfort. 4. Jitteriness. The patient states she continues to take Requip for this problem. 5. Chronic obstructive pulmonary disease. Her breathing is stable. 6. Oxygen use at night. 7. Hypothyroidism. 8. gastroparesis. 9. History of IVC filter placement. 10. History of seizures at the time of lumbar laminectomy. 11. Asthma. 12. History of shingles. RECOMMENDATIONS: We discussed treatment options. At this juncture, the patient feels her medications are working reasonably well. She would like to continue their use. She is taking them as prescribed. She is not having any complications. A script for her medications have been rewritten. She will continue with MS Contin 15 mg 1 p.o. b.i.d., hydrocodone 7.5 mg, a total of [address] [address] PAIN MANAGEMENT CONSULTATION Name: ILEANA CASE Room #: REG [facility].#: [id number] Admission: 05/07/18 ������������������ Attend Phys: Indy Marley MD Discharge: ������������������ Date of : 44 Report #: [id number] tablets daily. She will call us if she has any concerns. We would like to thank you for letting us participate in her care. We hope she continues to improve. ��������������������������������������������� ���������������������������������������� By: ��������������������������������������������� 1549 1844 Indy Marley MD /FANY
[2018-05-07 12:38] VITALS: BP 132/83
--- NOTE | 2018-05-07 12:43 | NUR ---
Pain Clinic Assessment: 1. History of Osteoarthritis: HANDS KNEES BACK History of Rheumatoid Arthritis: Not Applicable 2. Height: 5 ft. 3 in. 160.0 cm. Weight: 188.0 lb. oz. 85.276 kg. Patient's BMI: 33.3 3. Vital Signs: BP: 132/83 Pulse: 77 Resp: 15 Temp: 02 Sat: 98 ECG Mon: 4. Pain Intensity: 7 5. Fall Risk: Dizziness: N Needs help standing or walking: Y Fallen in the last 3 months: N Fall risk comments: USES CANE 6. Patient on Blood Thinner: None 7. History of Hypertension: Y 8. Opioid Therapy greater than 6 weeks: Y Opiate Contract Signed: 12/12/16 9. Risk Assessment Tool Provided: Opioid Risk Tool 10. Functional Assessment Tool: 11. Recreational Drug Use: Never Drug Type: Tobacco Use: Never Smoker Tobacco Type: Amount or Packs/day: How Many Years: Alcohol Use: Past use Frequency: Quant:
== END ==
LOC: PAIN 07:44
DX: M54.5 Low back pain (principal); M54.2 Cervicalgia; M79.18 Myalgia, other site; J44.9 Chronic obstructive pulmonary disease, unspecified; E03.9 Hypothyroidism, unspecified; R45.0 Nervousness; Z79.899 Other long term (current) drug therapy; Z86.69 Personal history of other diseases of the nervous system and sense organs; Z99.81 Dependence on supplemental oxygen; Z86.19 Personal history of other infectious and parasitic diseases; Z95.828 Presence of other vascular implants and grafts

== ENCOUNTER → 2018-08-15 | Outpatient (CLI) | payer OTHER ==
[~2018-08-15] VITALS: Ht 157.5 cm; Wt 86.2 kg
[~2018-08-15] MED LIST changes: +CATAPRES0.2 MG PO
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
[2018-08-15 09:01] VITALS: BP 138/82
--- NOTE | 2018-08-15 09:07 | NUR ---
Pain Clinic Assessment: 1. History of Osteoarthritis: HANDS KNEES BACK History of Rheumatoid Arthritis: Not Applicable 2. Height: 5 ft. 2 in. 157.5 cm. Weight: 190.0 lb. oz. 86.184 kg. Patient's BMI: 34.7 3. Vital Signs: BP: 138/82 Pulse: 86 Resp: 16 Temp: 02 Sat: 98 ECG Mon: 4. Pain Intensity: 8 5. Fall Risk: Dizziness: N Needs help standing or walking: N Fallen in the last 3 months: N Fall risk comments: USES CANE 6. Patient on Blood Thinner: None 7. History of Hypertension: Y 8. Opioid Therapy greater than 6 weeks: Y Opiate Contract Signed: 12/12/16 9. Risk Assessment Tool Provided: 0-LOW 10. Functional Assessment Tool: 11. Recreational Drug Use: Never Drug Type: Tobacco Use: Never Smoker Tobacco Type: Amount or Packs/day: How Many Years: Alcohol Use: Past use Frequency: Quant:
== END ==
LOC: PAIN 06:46
DX: M54.2 Cervicalgia (principal); M25.511 Pain in right shoulder; M79.10 Myalgia, unspecified site; M25.512 Pain in left shoulder; J44.9 Chronic obstructive pulmonary disease, unspecified; E03.9 Hypothyroidism, unspecified; K31.84 Gastroparesis; Z95.828 Presence of other vascular implants and grafts; Z79.899 Other long term (current) drug therapy; Z99.81 Dependence on supplemental oxygen

== ENCOUNTER → 2018-12-03 | Outpatient (CLI) | payer OTHER ==
[~2018-12-03] VITALS: Ht 160 cm; Wt 85.3 kg
[~2018-12-03] MED LIST changes: +CLONAZEPAM 0.50.5 M1 PO; +CLOPIDOGREL75 MG PO; +COZAAR 50 MG TA50 M1 PO; +FLONASE 0.05%50 MCG NASAL; +GABAPENTIN100 MG PO; +HYDRALAZINE 10M10 MG PO; +HYDROCODON-ACE1 EAC7 PO; +MIRALAX17 GM PO; +NAMENDA 5 MG TAB5 M1 PO; +REMERON15 MG PO; +TRIAMCINOLONE A15 G3 TOP; +VALTREX 500 MG500 MG PO; +VOLTAREN GEL 1100 G2 TOP
[2018-12-03 12:52] VITALS: BP 151/105
--- NOTE | 2018-12-03 12:52 | NUR ---
Pain Clinic Assessment: 1. History of Osteoarthritis: HANDS KNEES BACK History of Rheumatoid Arthritis: Not Applicable 2. Height: 5 ft. 3 in. 160.0 cm. Weight: 188.0 lb. oz. 85.276 kg. Patient's BMI: 33.3 3. Vital Signs: BP: 151/105 Pulse: 73 Resp: 18 Temp: 02 Sat: 99 ECG Mon: 4. Pain Intensity: 7 5. Fall Risk: Dizziness: N Needs help standing or walking: N Fallen in the last 3 months: N Fall risk comments: USES CANE 6. Patient on Blood Thinner: None 7. History of Hypertension: Y 8. Opioid Therapy greater than 6 weeks: Y Opiate Contract Signed: 12/12/16 9. Risk Assessment Tool Provided: 0-LOW 10. Functional Assessment Tool: 11. Recreational Drug Use: Never Drug Type: Tobacco Use: Never Smoker Tobacco Type: Amount or Packs/day: How Many Years: Alcohol Use: Past use Frequency: Quant:
--- NOTE | 2018-12-04 11:24 | HPC ---
[facility] [address] [place] [address] PAIN MANAGEMENT CONSULTATION Name: ILEANA CASE Room #: REG [facility].#: [id number] Admission: 12/03/18 Attend Phys: Radha Terrell Discharge: Date of : 42 Report #: [id number] THIS REPORT FOR: //name// CC: Radha Alamoa Daniel DATE OF SERVICE: 12/03/2018 CHIEF COMPLAINT: Chronic low back pain, status post surgery. HISTORY OF PRESENT ILLNESS: This is a 78-year-old female who returns to the pain clinic today for a refill of her medications that she uses to help treat her ongoing low back pain and failed back surgeries. She also has bilateral leg pain. She feels that her legs are becoming more weak and having increasing burning, rating her pain score as 7/10. Pain is exacerbated with standing and walking and weather changes, but her medications are helpful as well as heat. She denies any problem with constipation or daytime sleepiness from her medications. ALLERGIES: PENICILLIN, SULFA AND CHLORZOXAZONE. CURRENT LIST OF MEDICATIONS: Morphine sulfate 15 mg b.i.d., hydrocodone 7.5/325 t.i.d., primidone 50 mg, Singulair 10 mg, Carafate, ropinirole 1 mg, albuterol, oxybutynin 5 mg, amlodipine, iron, Aricept 10 mg, erythromycin, Nexium 40 mg, metoprolol 25 mg, metformin 500 mg, valsartan 320 mg, amitriptyline 50 mg, Synthroid 75 mcg, Lipitor 20 mg, vitamin D, vitamin C, Celexa 10 mg, aspirin, multivitamin, Januvia 50 mg, Lasix 40 mg, alprazolam p.r.n., potassium and clonidine 0.2 mg. PQRS: 1. She has a history of arthritic changes in her hands, knees and back. Denies any rheumatoid arthritis. 2. Height is 5 feet 3 inches, weight is 188, BMI is 33. 3. Vital signs 151/105, pulse is 73, respirations 18, oxygen sat is 99. 4. Pain score is 7/10. 5. Denies dizziness. Does use a cane for walking at all times. Has not fallen in the last 3 months. 6. The patient is not on any blood thinners, but does take medicine for hypertension. 7. Opioid therapy is greater than 6 weeks; therefore, an opiate signed contract is on the chart. Risk assessment tool is low. Functional assessment is 22/70. 8. Recreational drug use, she denies. She does not smoke and has used alcohol in the past. According to the prescription monitoring system, the patient is filling appropriately. She is due in a timely fashion for her medications slightly [address] [address] PAIN MANAGEMENT CONSULTATION Name: EVIEILEANA Lily Room #: REG [facility] Jennifer.#: [id number] Admission: 12/03/18 Attend Phys: Radha Terrell Discharge: Date of : 42 Report #: [id number] longer than 3 months. PHYSICAL EXAMINATION: GENERAL: This is a well-developed, well-nourished black female who appears her stated age. She is alert and oriented and her pain score number is 7/10 today. HEENT: Normocephalic, atraumatic. Extraocular muscles are intact. Mucous membranes are moist. NECK: Without adenopathy or JVD. EXTREMITIES: Upper extremity strength 4/5, has some tremors involving her hands. MUSCULOSKELETAL: Lower extremity strength judged to be 4/5 bilaterally, weaker on the left than the right. The patient uses a cane at all times. She has discomfort in her lumbar spine that radiates into her bilateral legs with burning in her legs. IMPRESSION: 1. Failed back syndrome with lumbar radiculopathy. 2. Myofascial pain. 3. Cervical radiculopathy. 4. Chronic obstructive pulmonary disease. 5. Oxygen use at night. 6. History of shingles. 7. Management of opioids under terms of written opioid agreement. We reviewed the fact that opiate medications are being used to provide analgesia adequate to support activities of daily living, not attempting to achieve a specific pain score on the 0-10 Visual Analog Scale. The current opiate medications are providing sufficient analgesia to allow the patient to participate in activities of daily living. The patient is not exhibiting any aberrant behavior suggestive of drug diversion. The patient is not having any adverse reactions to medications. The patient is not suffering from daytime somnolence or mental acuity changes. The patient is managing opiate-induced constipation with appropriate dcjp-imz-[id number] agents and dietary considerations. The patient was counseled on concern for caution with operating a motor vehicle while using opiate medications. A physical exam was performed and the patient's functional status was evaluated. All patients with back pain were advised against the bed rest greater than 4 days and were advised to return to normal activities. Pain score assessment was noted and the treatment plan was reviewed with the patient. All current medications, both prescribed and OTC were reviewed and reconciled on the electronic medical record. Tobacco screening was accomplished and smoking cessation was advised when indicated. BMI was noted and diet/exercise modification was recommended for all patients following outside normal parameters. [address] [address] PAIN MANAGEMENT CONSULTATION Name: ILEANA CASE Room #: REG [facility]#: [id number] Admission: 12/03/18 Attend Phys: Radha Terrell Discharge: Date of : 42 Report #: [id number] I reviewed with the patient today their responsibilities to safeguard prescription medications, reviewed their responsibility to utilize medications only as prescribed by the physician. They are to seek and receive pain medications only from 1 physician group ( [facility]). They are to use 1 pharmacy and keep the clinic informed if they change pharmacies. Their responsibilities include making followup visits in a timely fashion and to avoid abrupt discontinuation of medication usage. Their responsibilities further include bringing their medications (bottles from the pharmacy with residual pills) to the visit for possible confirmation of pill counts and the patient understands it is their responsibility to submit to random drug screens to ensure both that the medications prescribed are present, and that no other controlled substances are present. All prescriptions provided today were generated electronically. RECOMMENDATIONS: 1. We discussed treatment options with the patient today. The patient finds the morphine and hydrocodone beneficial in controlling her pain. Scripts given today for 15 mg of morphine b.i.d., quantity 60 for today and 4-week release and hydrocodone 7.5/325, #90, for today and 4-week release. This places the patient at 42 morphine mEq per day well under the CDC guidelines. 2. The patient believes she is having increased burning in her legs, though it seems that she has reported this for several months. She has trialed gabapentin in the past, unsure if it was beneficial or not, so we have elected to restart this medication at a very low dose and titrating slowly 100 mg at bedtime for a week, then 200 mg at bedtime for a week with our goal of 300 mg at bedtime. The patient is to stay on the lowest most effective dose that does control some of her burning. If at 300, she still continues to notice significant burning in her bilateral legs, she will call our office and we may increase this medicine during the day. 3. The patient did see Dr. Jai Marley today who collaborated care as well. <ELECTRONICALLY SIGNED> By: Radha Terrell 12/04/18 1124 1416 0029 Radha Terrell /thiago
== END ==
LOC: PAIN 07:10
DX: Z88.2 Allergy status to sulfonamides (principal); M54.16 Radiculopathy, lumbar region; M54.12 Radiculopathy, cervical region; G89.29 Other chronic pain; J44.9 Chronic obstructive pulmonary disease, unspecified; Z79.891 Long term (current) use of opiate analgesic; Z88.0 Allergy status to penicillin; Z79.899 Other long term (current) drug therapy

== ENCOUNTER 2018-12-04 19:10 | Inpatient (IN) | payer OTHER ==
[~2018-12-04] VITALS: Ht 160 cm; Wt 84.0 kg
[2018-12-04] VITALS (9 sets, daily range): BP systolic 135–153; BP diastolic 72–90
[~2018-12-04 19:10] MED LIST changes: -CLONAZEPAM 0.50.5 M1 PO; -CLOPIDOGREL75 MG PO; -COZAAR 50 MG TA50 M1 PO; -FLONASE 0.05%50 MCG NASAL; -HYDRALAZINE 10M10 MG PO; -HYDROCODON-ACE1 EAC7 PO; -MIRALAX17 GM PO; -NAMENDA 5 MG TAB5 M1 PO; -REMERON15 MG PO; -TRIAMCINOLONE A15 G3 TOP; -VALTREX 500 MG500 MG PO; -VOLTAREN GEL 1100 G2 TOP
[2018-12-04 19:30] LABS: ABSOLUTE NEUTROPHILS 6.6 thou/uL (1.4-8.2); BASOPHILS 1.1 % (0.0-2.0); EOSINOPHILS 1.4 % (0.0-3.0); HEMATOCRIT 37.9 % (37.0-47.0); HEMOGLOBIN 12.1 gm/dL (12.0-15.0); LYMPHOCYTES 25.9 % (24.0-44.0); MCH 29.2 pg (26.0-34.0); MCV 91.4 fL (80.0-100.0); MONOCYTES 7.6 % (1.0-8.0); PLATELET COUNT 324 thou/uL (150-400); RBC 4.15 mil/uL (4.20-5.00); RDW 14.2 % (10.5-14.5); WBC 10.3 thou/uL (4.0-11.0)
[2018-12-04 19:38] LABS: ANION GAP 10 mmol/L (7-16); BUN 14 mg/dL (7-18); CALCIUM 9.3 mg/dL (8.5-10.1); CHLORIDE 106 mmol/L (98-107); CO2 26 mmol/L (21-32); CREATININE 1.3 mg/dL (0.6-1.0); GLUCOSE 108 mg/dL (74-106); POTASSIUM 3.9 mmol/L (3.5-5.1); SODIUM 142 mmol/L (136-145)
[2018-12-04 19:44] LABS: APTT 26.2 Seconds (24.5-32.8); PROTIME 10.7 Seconds (9.3-11.4)
[2018-12-04 19:48] LABS: ALBUMIN 3.1 g/dL (3.4-5.0); SGOT 17 U/L (15-37); SGPT 9 U/L (30-65); TOTAL BILIRUBIN 0.3 mg/dL (<0.1-1.0); TOTAL PROTEIN 6.4 g/dL (6.4-8.2); TROPONIN-I <0.06 ng/mL (<0.06)
--- NOTE | 2018-12-04 21:43 | NUR ---
ATTEMPTED TO CALL REPORT SPOKE TO AUN WHO REQUESTS TO WAIT 30 MIN THEN CALL BACK FOR REPORT
[2018-12-05] VITALS (39 sets, daily range): BP systolic 125–162; BP diastolic 71–102
--- NOTE | 2018-12-05 03:25 | NUR ---
PT ARRIVED IN ICU FROM ER AT 2215 YESTERDAY. PT RECEIVED TPA IN ER. NIH SCALE ASSESSED PER PROTOCOL. PT IS SHOWING IMPROVEMENT IN MOVEMENT OF LT ARM AND LEG. SENSATION HAS ALSO IMPROVED ON THE LEFT SIDE. PT STRUGGLES WITH SPEECH AND HAS PROMINENT LOWER FACIAL DROOP, GREATER ON THE RT THAN LT. PT WAS ALSO C/O A HEADACHE WHEN ARRIVING IN THE ICU. TYLENOL SUPPOSITORY GIVEN. WILL CONTINUE TO MONITOR AND FOLLOW THE PLAN OF CARE.
[2018-12-05 05:06] LABS: HEMATOCRIT 35.7 % (37.0-47.0); HEMOGLOBIN 11.7 gm/dL (12.0-15.0); MCH 29.7 pg (26.0-34.0); MCHC 32.7 g/dL (28.0-37.0); MCV 90.9 fL (80.0-100.0); RBC 3.93 mil/uL (4.20-5.00); RDW 14.2 % (10.5-14.5); WBC 9.8 thou/uL (4.0-11.0)
[2018-12-05 05:24] LABS: ANION GAP 9 mmol/L (7-16); BUN 12 mg/dL (7-18); CHLORIDE 107 mmol/L (98-107); CHOLESTEROL 143 mg/dL (<200); CO2 28 mmol/L (21-32); CREATININE 1.1 mg/dL (0.6-1.0); GLUCOSE 95 mg/dL (74-106); HDL CHOLESTEROL 55 mg/dL (>40); LDL CHOLESTEROL 80 mg/dL (<100); POTASSIUM 3.7 mmol/L (3.5-5.1); SODIUM 144 mmol/L (136-145); TC:HDL 2.6 Ratio (Not establshd); TRIGLYCERIDE 42 mg/dL (<150); VLDL 8 mg/dL (<40)
[2018-12-05 05:38] LABS: SERUM ASSESSMENT Clear
[2018-12-05 06:01] LABS: URINE BILIRUBIN NEGATIVE (Negative); URINE BLOOD NEGATIVE (Negative); URINE CLARITY CLEAR; URINE COLOR YELLOW; URINE GLUCOSE-RANDOM* NEGATIVE (Negative); URINE KETONES NEGATIVE (Negative); URINE LEUKOCYTES-REFLEX NEGATIVE (Negative); URINE NITRITE-REFLEX NEGATIVE (Negative); URINE PROTEIN (DIPSTICK) NEGATIVE (Negative); URINE UROBILINOGEN 0.2 E.U./dl (0.2-1.0)
--- NOTE | 2018-12-05 08:30 | NUR ---
2D ECHO with bubble study at bedside, negative for PFO.
--- NOTE | 2018-12-05 09:51 | 2DMMODE ---
[facility] [address] [place] [address] 2 D/M-MODE ECHOCARDIOGRAM Name: EVIEILEANA Bautista Room #: 246-P [facility] IN .R.#: [id number] Admission: 12/04/18 Attend Phys: Hannah Cerda Discharge: Date of : 42 Report #: [id number] THIS REPORT FOR: //name// APPROVED REPORT Study performed: 12/05/2018 08:20:48 EXAM: Comprehensive 2D, Doppler, and color-flow Echocardiogram Patient Location: ICU Room #: [facility] Status: routine BSA: 1.86 HR: 62 bpm BP: 152/82 mmHg Rhythm: NSR Other Information Study Quality: Good Indications COPD CVA/TIA Diabetes Hypertension/HDD Echo Enhancing Agent Indication: Rule out Shunt Agent(s) / Amount(s) Used: Agitated Saline 7 cc 2D Dimensions RVDd: 34.75 mm IVSd: 14.39 (7-11mm) LVOT Diam: 21.14 (18-24mm) LVDd: 42.34 mm PWd: 12.18 (7-11mm) Ascending Ao: 34.01 (22-36mm) LVDs: 29.53 (25-40mm) Aortic Root: 29.50 mm IVC: 16.00 mm Volumes Left Atrial Volume (Systole) Single Plane 4CH: 32.25 mL Single Plane 2CH: 36.59 mL LA ESV Index: 22.00 mL/m2 Aortic Valve AoV Peak Moo.: 1.45 m/s AO Peak Gr.: 8.39 mmHg LVOT Max P.04 mmHg [facility] [address] [address] 2 D/M-MODE ECHOCARDIOGRAM Name: ILEANA CASE Room #: 246-P [facility]#: [id number] Admission: 12/04/18 Attend Phys: Hannah Cerda Discharge: Date of : 42 Report #: [id number] LVOT Max V: 1.00 m/s REYMUNDO Vmax: 2.43 cm2 Mitral Valve E/A Ratio: 0.7 MV Decel. Time: 265.89 ms MV E Max Moo.: 0.68 m/s MV A Moo.: 0.91 m/s MV PHT: 77.11 ms IVRT: 147.64 ms Pulmonary Valve PV Peak Moo.: 0.88 m/s PV Peak Gr.: 3.12 mmHg Pulmonary Vein P Vein S: 0.64 m/s P Vein A: 0.29 m/s P Vein D: 0.39 m/s P Vein A Dur.: 156.9 msec P Vein S/D Ratio: 1.64 Tricuspid Valve TR Peak Moo.: 2.72 m/s TR Peak Gr.: 29.59 mmHg PA Pressure: 35.00 mmHg Left Ventricle The left ventricle is normal size. There is normal LV segmental wall motion. Mild concentric left ventricular hypertrophy. The left ventricular systolic function is normal. The left ventricular ejection fraction is within the normal range. LVEF is 55-60%. Grade I - abnormal relaxation pattern. Right Ventricle The right ventricle is normal size. The right ventricular systolic function is normal. Atria The left atrium size is normal. Interatrial septum is intact without evidence of ASD or PFO. The right atrium size is normal. Aortic Valve The aortic valve is normal in structure. Trace aortic regurgitation. There is no aortic valvular stenosis. Mitral Valve The mitral valve is normal in structure. Trace mitral regurgitation. No evidence of mitral valve stenosis. [facility] [address] [place] [address] 2 D/M-MODE ECHOCARDIOGRAM Name: ILEANA CASE Room #: 246-P [facility] IN .R.#: [id number] Admission: 12/04/18 Attend Phys: Hannah Cerda Discharge: Date of : 42 Report #: [id number] Tricuspid Valve The tricuspid valve is normal in structure. There is trace tricuspid regurgitation. Estimated PAP 35 mmHg. There is mild pulmonary hypertension. Pulmonic Valve The pulmonary valve is normal in structure. There is no pulmonic valvular regurgitation. Great Vessels The aortic root is normal in size. IVC is normal in size and collapses >50% with inspiration. Pericardium There is no pericardial effusion. <Conclusion> The left ventricle is normal size. Mild concentric left ventricular hypertrophy. The left ventricular systolic function is normal. Grade I - abnormal relaxation pattern. The right ventricle is normal size. The left atrium size is normal. Interatrial septum is intact without evidence of ASD or PFO. The aortic valve is normal in structure. Trace aortic regurgitation. Trace mitral regurgitation. There is trace tricuspid regurgitation. Estimated PAP 35 mmHg. <ELECTRONICALLY SIGNED> By: Nabor Shi MD 12/05/1851 0 0 Nabor Shi MD /INF
--- NOTE | 2018-12-05 12:30 | NUR ---
Pt to radiology for MRI/MRA head follow up CVA at 1145. Tolerated procedure well. Returned to ICU without incident. Rehab DICER MACHINE OPERATOR in to see patiet. Speech therapy in to see pt and perform swallow evaluation.
--- NOTE | 2018-12-05 15:11 | EKG ---
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: [place] : 1940 Requested By: Jaci Wilkes Order Number: [id number] MD: Edwin Reid Measurements Intervals [place] Rate: 70 P: 40 WI: 166 QRS: -37 QRSD: 84 T: -14 QT: 397 QTc: 429 Interpretive Statements Sinus rhythm Abnormal R-wave progression, late transition Left ventricular hypertrophy Inferior infarct, age indeterminate Compared to ECG 10/05/2016 13:19:30 Q waves no longer present Myocardial infarct finding still present Electronically Signed On 12-05-2018 15:11:26 CDT by Edwin Reid [email or web address] <ELECTRONICALLY SIGNED> By: Edwin Reid MD 12/05/18 1511 37 37 Edwin Reid MD /EPI
--- NOTE | 2018-12-05 16:33 | NUR ---
Dr. Song paged re: need for pain medication. Tylenol suppository not effective for chronic severe low back pain. Awaiting return call.
--- NOTE | 2018-12-05 16:37 | NUR ---
Case opened to follow for dc planning. Pt admitted to ICU s/p TPA, CVA with aphasia and weakness. Pt's dtr Nida and son Ephraim are at bedside along with several grandchildren. The pt lives [facility] in an [facility]. She is normally indep with gait, adl's as well as homemaker services. She drives and manages her meds and finances. She does have a cane for occasional use. She has five children. Nida and Ephraim are the primary contacts. The pt does not have an AD/DPOA in place. Document provided for pt/family review should she wish to complete once she is medically stable. PT/OT/ST evals pending as well as 5N eval. Family concerned about whether she will be able to return to [facility] living. The pt will likely need acute rehab stay at pr.
--- NOTE | 2018-12-05 17:08 | NUR ---
Dr. Mcfarland on rounds, in agreement that patient needs more than tylenol for chronic pain issues. CT head cancelled for tonight. Repeat MRI head ordered for AM. Dr. Song returned page. Order rec'd for morphine 4mg IV q 4hr for pain. Dr. Mcfarland in agreement. Heating pad ordered for back pain as well per pt request.
--- NOTE | 2018-12-05 18:00 | NUR ---
Pt no longer tearful, states her pain is much better after morphine and heat. Positioned onto left side for comfort. Call light within reach right hand.
[2018-12-06] VITALS (18 sets, daily range): BP systolic 143–203; BP diastolic 86–124
[2018-12-06 00:09] LABS: GLYCOHEMOGLOBIN (HGB A1C) 5.4 % (4.8-5.6)
--- NOTE | 2018-12-06 18:19 | NUR ---
ASSUMED CARE OF PATIENT AROUND 1300 WHEN ADMITTED FROM THE ICU. PATIENT HAD SEVERE LEFT SIDED WEAKNESS AND DYSARTHRIA ON ARRIVAL. PATIENT DRASTICALLY IMPROVED BY 1800 WITH NO NEURO DEFICITS BY MY ASSESSMENT. PATIENT SPEAKING CLEARLY WITH GOOD STRENGTH IN LEFT SIDED EXTREMITIES. PATIENT RECIEVING NORMAL SALINE IV.
--- NOTE | 2018-12-06 18:32 | NUR ---
TRANSFER NOTES @1310-Pt was transferred to ROOM #357. Pt was more alert than this morning. Speech was much clear. NIHSS was 11 at noon. SBP MAINTAINED >160s. BS 111 prior to transfer. Pt did not want to eat lunch, saying that she did not like pureed diet. Pt's all belonings were w/ pt. This nurse accompanied pt w/ [employer] when pt was transferred. Families were informed re transfer and all families accompanied pt too.
--- NOTE | 2018-12-06 19:36 | NUR ---
PATIENT HYPERTENSIVE THIS EVENING - 10MG HYDRALAZINE GIVEN PER ORDER - NOW TACHYCARDIC - FEELING LIKE HEART RACING - ASSOCIATE MERCHANT NOTIFIED - EKG ORDERED.
--- NOTE | 2018-12-06 20:12 | NUR ---
Late shift notes; 0800-Pt was drowsy. Could not open her eyes well, saying that she was very tired. Pupils very small but react briskly to light. NIHSS was 12 in the morning. LS was clear. RA. SAT 89 TO 100% PAC, PVC on the monitor. Traceable edema on LE. IVF infusing per order. Pt c/o pain but morphine was d/c'ed. This nurse notified Dr. Song. [place] elixir was administered per order. 0845-Ate 50% from breakfast. 1000-BP was elevated >180s. Hydralazine was administered. 1100-BP wad down to 160s.
[2018-12-07 00:05] VITALS: BP 143/92
--- NOTE | 2018-12-07 01:49 | NUR ---
ASSUMED CARE OF PT AT 1915HRS. PT RECEIVED HYDRALAZIENE AT SHIFT CHANGE FOR HIGH BP. PT WAS TACHYCARDIC WITHIN MINS OF ADMINISTRATION. PT STARTED COMPLAINING OF CHEST PAIN AND LEFT SIDED TINGLING. HOSPITALIST WAS NOTIFIED. ORDERS RECEIVED AND IMPLEMENTED. PT STARTED HAVING SLURRED SPEECH AND WAS DISORIENTED. PT SCORED 7 ON THE NIH SCALE, WHICH WAS PREVIOUSLY 0. NEURO WAS NOTIFIED. ORDERS RECEIVED AND IMPLEMENTED. NEUROLOGIST CAME TO ASSESS PT AND REVIEWED LABS AND CT. ROUTINE MRI ORDERED AND WILL BE DONE ON SATURDAY. PT'S SYMPTOMS IMPROVED. CARDIO WAS ALSO NOTIFIED. OF 2324, PT WAS AOX4 AND BACK TO BASELINE. PT DENIES ANY PAIN OR DISCOMFORT. PT IS ON SR. VITAL SIGN STABLE. ASSESSMENTS CHARTED. PT WAS REPORTED OFF TO YURIY BLAIR AT 2350HRS.
[2018-12-07 04:15] VITALS: BP 108/65
--- NOTE | 2018-12-07 04:30 | NUR ---
Took over care of pt. after 0. Able to answer orientation questions. Denies pain. She has been calm and cooperative. Mild left sided weakness from CVA this adm. She didn't sleep till after 0100. Slept with BIPAP and 2L bleed in. Repositioned prn for comfort. Bed alarm for safety.SCD's on.Report given to another RN. Will continue to monitor.
--- NOTE | 2018-12-07 05:10 | NUR ---
REASSUMED CARE FROM YURIY BLAIR AT 0430HRS. PT IS SLEEPING WITH BIPAP ON. PT TOO DROWSY TO PERFORM NIH AT THIS TIME. WILL CONTINUE TO MONITOR.
[2018-12-07 06:33] LABS: HEMATOCRIT 37.2 % (37.0-47.0)
[2018-12-07 07:35] VITALS: BP 134/86
--- NOTE | 2018-12-07 10:40 | EKG ---
[address] [place] [address] ELECTROCARDIOGRAM REPORT Name: ILEANA CASE Room #: 357-P ADM IN M.R.#: [id number] Admission: 12/04/18 Attend Phys: Hannah Song Discharge: Date of : 44 Report #: [id number] THIS REPORT FOR: //name// [facility] Test Date: 2018-12-06 Test Time: 19:43:30 Pat Name: ILEANA CASE Department: Room: 357 P Gender: F Oncology Pharmacist: garcia michel RN : 1940 Requested By: Cecelia Jin Order Number: [id number] MD: Edwin Reid Measurements Intervals [place] Rate: 111 P: 44 MT: 139 QRS: -39 QRSD: 89 T: 65 QT: 386 QTc: 525 Interpretive Statements Sinus tachycardia Consider right atrial enlargement LVH with secondary repolarization abnormality Inferior infarct, old Compared to ECG 12/04/2018 19:38:07 Electronically Signed On 12-07-2018 10:40:28 CDT by Edwin Reid [email or web address] <ELECTRONICALLY SIGNED> By: dEwin Reid MD 12/07/18 1040 42 42 Edwin Reid MD /APRIL
--- NOTE | 2018-12-07 10:42 | EKG ---
[address] [address] ELECTROCARDIOGRAM REPORT Name: ILEANA CASE Room #: 357-P ADM IN M.R.#: [id number] Admission: 12/04/18 Attend Phys: Hannah Song Discharge: Date of : 44 Report #: [id number] THIS REPORT FOR: //name// [facility] Test Date: 2018-12-07 Test Time: 08:17:07 Pat Name: ILEANA CASE Department: Room: 357 P Gender: F Principal Associate: Zena GREWAL : 1940 Requested By: Cecelia Jin Order Number: [id number] MD: Edwin Reid Measurements Intervals [place] Rate: 61 P: 22 MT: 159 QRS: -37 QRSD: 91 T: -29 QT: 492 QTc: 496 Interpretive Statements Sinus rhythm Left ventricular hypertrophy Inferior infarct, age indeterminate Anterior Q waves, possibly due to LVH Abnormal T, consider ischemia, anterior leads Compared to ECG 12/04/2018 19:38:07 Q waves now present T-wave abnormality now present Possible ischemia now present Myocardial infarct finding still present Electronically Signed On 12-07-2018 10:41:56 CDT by Edwin Reid [email or web address] <ELECTRONICALLY SIGNED> By: Edwin Reid MD 12/07/18 1041 6 6 Edwin Reid MD /EPI
[2018-12-07 11:42] VITALS: BP 134/88
--- NOTE | 2018-12-07 16:02 | NUR ---
Assumed care approx. 0700 this AM. NIH score of 9 this AM and NIH score of 3 around noon (see assessment) Dr. Song made aware of this nurses concerns regarding the patient's mentation this AM. Dr. Song said he would change narcotic doses, and thinks she is appropriate at this time. Patient on bipap this AM then transitioned to 2LNC for comfort and drowsiness as she has slept much of the day. Prince still intact. Sinus rhythm on the monitor. No complaints of chest pain or chest tightness. JANELLE reyes ordered, will apply upon arrival. Patient waking up to eat very little of her meals, but not consuming much as she doesn't like the pureed food. Patient hasn't made much progression this shift toward plan of care.
[2018-12-07 16:07] VITALS: BP 190/116
--- NOTE | 2018-12-07 17:00 | NUR ---
ASTRONAUTICAL ENGINEER activated for possible CVA-see ASTRONAUTICAL ENGINEER
[2018-12-07 19:37] VITALS: BP 156/99
[2018-12-08 03:49] VITALS: BP 115/79
--- NOTE | 2018-12-08 05:54 | NUR ---
Pt alert, oriented x to time. NIH 4- cont to c/o of some dizziness. Remains in bed. BP wnl. On bipap at noc. Sat wnl on RA. NPO after midnight for test this am. Cont plan of care
[2018-12-08 07:23] VITALS: BP 146/76
[2018-12-08] MEDS ORDERED: COZAAR 50 MG TA50 M1 PO (09:08)
[2018-12-08] MEDS ORDERED: CLOPIDOGREL75 MG PO (09:08)
[2018-12-08] MEDS ORDERED: HYDROCODON-ACE1 EAC7 PO (09:09)
[2018-12-08] MEDS ORDERED: NAMENDA 5 MG TAB5 M1 PO (09:09)
[2018-12-08] MEDS ORDERED: REMERON15 MG PO (09:09)
--- NOTE | 2018-12-08 12:28 | NUR ---
ON-GOING ASSESSMENT: CM REVIEWED CHART AND SPOKE WITH 5N LIASON. SHE STATES THEY ARE STARTING TO SEEK INSURANCE AUTH FOR 5N. CM LEFT VM WITH DAUGHTER EVERT TO NOTIFY HER OF UPDATE. PT WILL POSSIBLE DISCHARGE TO 5N PENDING INSURANCE AUTH.
--- NOTE | 2018-12-08 13:26 | NUR ---
PATIENT READY TO COME ACUTE TO REHAB PER PHYSICIAN. AUTHORIZATION REQUESTED. AWAITING RESPONSE FROM INSURANCE COMPANY. WILL NOTIFIY BOILER REPAIR SUPERVISOR SOON ANSWER IS RECEIVED. THANK YOU FOR THIS REFERRAL.
--- NOTE | 2018-12-08 13:41 | NUR ---
Alerted by ST pt with poor intake. Requires modified diet of puree with no mixed consistencies. Will order Ensure Enlive for lunch and magic cups for dinner. Likely transfer to rehab possibly today, will complete assessment once readmitted to
--- NOTE | 2018-12-08 15:36 | NUR ---
pt co of her frustration with the "inconsistancies" in what she is hearing from the staff: 1) she was told she did have a stroke and others have said that she did not have a stroke, 2) she was told by someone today that she should not have had a mri this am, 3) her cardiac stress test was cancelled this am, but cardiology dr/ccnp are at bs now stating that she does need the test tomorrow. zinc furnace charger notified, nurse beronica notified and clubhouse attendant notified of pt's desire to speak with someone regarding her frustration. pt at bs for the second time today to work w/ pt. pt use of heating pad to her left back are for discomfort 4-08/18, effective for discomfort relief 04/20. speech therapy at bs for cognitive evaluation dt pt's compliants re: left side of mouth difficulty w/ swallowing. linen change complete. dr. powell at bs to talk w/ pt and her daughter. swallowing w/ st early afteroon. pt verbalized that her co nausea has passed.
[2018-12-08 16:51] VITALS: BP 147/101
[2018-12-08 19:52] VITALS: BP 164/102
[2018-12-09] VITALS (7 sets, daily range): BP systolic 146–198; BP diastolic 11–113
--- NOTE | 2018-12-09 05:25 | NUR ---
ASSUMED CARE AT 1900. PT AND FAMILY HIGHLY AGITATED ABOUT PAIN AND NAUSEA, AND LACK OF COMMUNICATION FROM DOCTOR. FAMILY KEPT COMING OUT TO THE DESK, CALL MULTIPLE TIMES; ATTEMPTED TO EXPLAIN WHAT WAS BEING DONE, ORDERED, ETC BUT FAMILY AND PT CONTINUED TO BE ARGUMENTATIVE. OBTAINED ORDER FOR DOSE OF MS CONTIN AND REGLAN TO ALTERNATE WITH ZOFRAN. PT WAS NO LONGER NAUSEATED LATE IN SHIFT, REPORTED PAIN LESSENED AFTER DOSE OF MS CONTIN; REPORTED BEING UNABLE TO SLEEP OVERNIGHT. VS STABLE OVERNIGHT, BLOOD PRESSURE BACK INTO NORMAL RANGE AFTER GIVEN HS BP MEDS AND PAIN MEDS. NO OTHER CONCERNS, WILL CONTINUE TO MONITOR.
--- NOTE | 2018-12-09 07:27 | NUR ---
pt presented with worsening stroke symptoms, code stroke called. ct of head completed. neuro notified, awaiting call back.
--- NOTE | 2018-12-09 07:58 | NUR ---
PT CALLED OUT ABOUT 0635, WAS SLURRING WORDS. LAST NORMAL WAS ABOUT 0430, PT WAS ABLE TO TALK WITHOUT ISSUE. COMPLETED NIH, WAS AT 15--APHASIC, COULD NOT UNDERSTAND ANSWERS TO QUESTIONS, COULD NOT LIFT LEFT ARM OR LEG. ACTIVATED CODE STROKE. PAGE PLACED TO NEURO. TOOK TO CT SCAN, RADIOLOGIST CALLED RESULTS WHICH WERE NEGATIVE. FAMILY NOTIFED AT 0745. REPORT GIVEN TO DAY NURSE ABOUT 0730.
--- NOTE | 2018-12-09 13:59 | EKG ---
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
--- NOTE | 2018-12-09 14:35 | NUR ---
ON-GOING ASSESSMENT: CM SPOKE WITH ATTENDING AND PT HAD CHEST PAIN AND SOME EKG CHANGE SO WAS GETTING A STRESS TEST. INSURANCE AUTH IS STILL PENDING AT THIS TIME FOR 5N. CM WILL CONTINUE TO FOLLOW TO ASSIST NEEDED.
--- NOTE | 2018-12-09 19:35 | NUR ---
PT ALERT AND ORIENTED TIMES FOUR BP ELEVATED NOTIFIED ONETIME PRN ORDRED GIVEN, BUT PT REFUSED TO TAKE MEDICATION. PO MEDS GIVEN FOR BP. PT C/O PAIN PRN MEDICATIONS GIVEN WITH GOOD RELEIF. OTHER VSS, IVF INFUSING PER ORDER, ZHANG TO [place]. SR ON TELE. PT FAMILY AT BEDSIDE. PLANS TO TRANSFER 5N FOR REHAB. PT SLOWLY PROGRESSING TOWRADS POC GOALS.
[2018-12-10 03:16] VITALS: BP 122/82
--- NOTE | 2018-12-10 03:16 | NUR ---
pt has had some increased difficulty with speech one time tonight at the begining of the shift. she is completely alert and oriented x4. calls approp for assist. resting quietly tonight.
[2018-12-10 07:08] VITALS: BP 153/96
--- NOTE | 2018-12-10 07:32 | NUR ---
AUTHORIZATION RECEIVED FROM PATIENT'S INSURANCE FOR ADMISSION TO REHAB ON 12/10/18. PATIENT CAN BE ADMITTED TO REHAB THIS DATE IF MEDICALLY STABLE. RIVERBOAT MASTER INFORMED. THANK YOU FOR THIS REFFERAL.
[2018-12-10 08:07] VITALS: BP 153/96
--- NOTE | 2018-12-10 12:55 | NUR ---
ASSUMED CARE OF PATIENT AT 0700. PATIENT COMPLAINED OF GENERALIZED PAIN AND WAS GIVEN MEDICATION. PATIENT FOUND PAIN MANAGEMENT SATIFACTORY. PATIENT STILL ON PUREED DIET AND THIN LIQUIDS. PATIENT WAS ABLE TO TAKE ORAL MEDICATIONS WITH WATER. PATIENT STILL SLURRING WORDS AND HAVING LEFT SIDE WEAKNESS EQUAL THAT HASNT DETIORATED SINCE THE BEGINNING OF MY SHIFT.
--- NOTE | 2018-12-10 13:37 | NUR ---
DISCHARGE NOTE: LOIS reviewed chart and spoke with nursing and attending physician. Pt is medically stable for discharge to today. Insurance authorization obtained. LOIS discussed with occupational therapist rehab manager, who confirms they are able to accept pt today. Pt is aware and agreeable with discharge plan. Discharge orders written and finalized. Rehab CM to follow and assist as needed with discharge planning.
--- NOTE | 2018-12-12 09:22 | HC ---
[facility] [place] [address] CONSULTATION Name: ILEANA CASE Room #: 357-P [facility] IN M.R.#: [id number] Admission: 12/04/18 Attend Phys: Hannah Song Discharge: 12/10/18 Date of : 44 Report #: [id number] THIS REPORT FOR: //name// CC: Chaya Song The patient was seen by me in the Emergency Room at the request of Emergency Room physician, Dr. Wilkes. The patient had apparently presented with speech difficulty and left-sided weakness. She said she had a stroke 10 years ago. They denied any history of psychiatric problem in this patient. On the phone, it looked like the symptoms were consistent with stroke and that was Dr. Wilkes's impression also. After working up the patient, she started the patient on TPA and she has just gotten the bolus when I saw the patient. I talked to the family and I talked to them in clear detail that she will be treated with a presumptive diagnosis of stroke at the moment. This is because there is no time to confirm the stroke by doing MRI, etc. I discussed with them the potential complication of intracerebral bleed, which is catastrophic and many times . They understood all this and they wanted to proceed with TPA, which was already started. Note is limited because I do not have access to the computer because there is a problem. When I saw the patient, the patient was not able to talk. She was not able to express but her symptoms look pretty unusual. She said she is pretty significantly weak on the left side and she could not move that much. As mentioned above, the family clearly told that there is no history of anxiety or depression or any other psychiatric problem in this patient. Dr. Wilkes has already done CT angiogram and perfusion in this patient. The results came back later on and it would appear it was unremarkable. This patient has presented with left-sided weakness as well as speech difficulty. The patient is right handed. After explaining the indication, potential complication, and alternative, the patient was started on TPA and the family and the patient were made it very clear that this is on the basis of presumptive diagnosis. I talked to Dr. Wilkes and asked her to make sure that the exercise specialist who admits the patient have post-TPA order for the nurses in ICU. She will be closely watched, and we will get an MRI done tomorrow and decide about further management. Dr. Mcfarland will be following up this patient with you from tomorrow. <ELECTRONICALLY SIGNED> By: Efrain Cannon MD 12/12/18 0922 2300 0033 Efrain Cannon MD /nt
--- NOTE | 2018-12-12 09:23 | EEG ---
[facility] [place] [address] ELECTROENCEPHALOGRAM Name: ILEANA CASE Room #: 357-P [facility] IN M.R.#: [id number] Admission: 12/04/18 Attend Phys: Hannah Oshea Discharge: 12/10/18 Date of : 44 Report #: [id number] THIS REPORT FOR: //name// CC: Chaya Song This patient keeps having episodes for which no etiology has been found. EEG was done by placing the electrode by standard 10-20 system of electrode placement. Both referential and sequential montages were used for recording. Background activity in this patient's EEG is about 9-10 Hz and 30 microvolt. It is a very well formed background activity. It is symmetrical. The patient became drowsy and that is associated with bilateral slowing and vertex sharp waves. Photic stimulation was unremarkable. Throughout the record, no active epileptiform activity was noticed. IMPRESSION: This patient's electroencephalogram is within normal limits. Thank you very much for this referral. <ELECTRONICALLY SIGNED> By: Efrain Cannon MD 12/12/18 0923 1559 1837 Efrain Cannon MD /nt
--- NOTE | 2018-12-16 15:57 | HC ---
[facility] [place] [address] CONSULTATION Name: ILEANA CASE Room #: 357-P [facility] IN M.R.#: [id number] Admission: 12/04/18 Attend Phys: Hannah Song Discharge: 12/10/18 Date of : 44 Report #: [id number] THIS REPORT FOR: //name// CC: Chaya Song CARDIOLOGY CONSULTATION REASON FOR CONSULTATION: Chest pain. HISTORY OF PRESENT ILLNESS: The patient is a 78-year-old female with a history of prior CVA, obstructive sleep apnea, COPD, diabetes, hypertension, hyperlipidemia, status post IVC filter, admitted on 12/04/2018 with new onset neurologic symptoms and was diagnosed with a stroke and underwent TPA infusion. She was moved out of the ICU and then last night, she had a period of time where her systolic blood pressures were in the 200s. This was associated with some chest pressure. An EKG was obtained, which I reviewed that showed no ischemic changes. She was given some medications to lower blood pressure, which likely occurred too quickly and then she had similar symptoms to her stroke probably from hypoperfusion. She underwent a repeat CT scan of the brain, which showed no acute process. Today, she is chest pain free. Blood pressures are much improved. She denies any shortness of breath, PND, orthopnea, presyncope or syncope. REVIEW OF SYSTEMS: Her 12-point review of systems was reviewed and was negative other than what I mentioned above. PAST MEDICAL HISTORY: As per above. SOCIAL HISTORY: She does not smoke. FAMILY HISTORY: Noncontributory. ALLERGIES: Have been reviewed. MEDICATIONS: Have been reviewed. She is on gabapentin, hydrocodone, Synthroid, insulin, gabapentin, metformin, clonidine, aspirin 325, nitro p.r.n., trazodone. PHYSICAL EXAMINATION: VITAL SIGNS: Temp is 36.7, pulse 62, respiration 20, blood pressure 134/86, sats are 100%. Her blood pressure yesterday was 203/124. GENERAL: She is in no acute distress. HEENT: Sclerae are anicteric. NECK: Supple. HEART: Regular rate and rhythm. No murmurs, rubs or gallops. LUNGS: Clear to auscultation bilaterally. ABDOMEN: Soft, nontender, nondistended. [address] [address] CONSULTATION Name: ILEANA CASE Room #: [address] [place] [address] IN M.R.#: [id number] Admission: 12/04/18 Attend Phys: Hannah Song Discharge: 12/10/18 Date of : 44 Report #: [id number] EXTREMITIES: There is no clubbing, cyanosis, edema. NEUROLOGIC: Cranial nerves 2-12 are intact. DIAGNOSTIC DATA: Her 12-lead EKG yesterday showed no ischemia. Her EKG today showed some mild T-wave inversions which are new. She had an echocardiogram this hospitalization showing normal left ventricular systolic function. LABORATORY DATA: White count is 9.8, hemoglobin 11.7, platelets are 298. Coags: INR 1.0. Chemistry: Sodium 140, potassium 3.7, BUN 12, creatinine 1.1. CT head showed no acute process. MRI brain showed no acute process. ASSESSMENT: Chest pain, etiology of this is unclear, but may have been related to hypertensive emergency. Her recent echocardiogram was normal. If the patient is doing better tomorrow, we can proceed with stress testing. We will continue to follow. <ELECTRONICALLY SIGNED> By: Edwin Reid MD 12/16/18 1557 [id number] [id number] Edwin Reid MD /nt
[2019-02-10] MEDS ORDERED: VALTREX 500 MG500 MG PO (13:30)
== END 2018-12-10 16:46 | DRG 62 ==
LOC: ER 19:10 → EROBS 21:49 → ICU 21:49 → 3W 21:49 → ICU 22:04 → 3W 12-06 14:08
PROVIDERS: Emergency Medicine; Nurse Practitioner Family; ADMIT Hospitalist
PROC: 3E03317 Introduction of Other Thrombolytic into Peripheral Vein, Percutaneous Approach (ICD-10-PCS; principal; 2018-12-04)
PROC: 5A09357 Assistance with Respiratory Ventilation, Less than 24 Consecutive Hours, Continuous Positive Airway Pressure (ICD-10-PCS; 2018-12-05)
PROC: 5A09357 Assistance with Respiratory Ventilation, Less than 24 Consecutive Hours, Continuous Positive Airway Pressure (ICD-10-PCS; 2018-12-06)
PROC: 5A09357 Assistance with Respiratory Ventilation, Less than 24 Consecutive Hours, Continuous Positive Airway Pressure (ICD-10-PCS; 2018-12-07)
PROC: 5A09357 Assistance with Respiratory Ventilation, Less than 24 Consecutive Hours, Continuous Positive Airway Pressure (ICD-10-PCS; 2018-12-10)
DX: I63.9 Cerebral infarction, unspecified (principal); G81.94 Hemiplegia, unspecified affecting left nondominant side; E11.9 Type 2 diabetes mellitus without complications; I10 Essential (primary) hypertension; E78.5 Hyperlipidemia, unspecified; J44.9 Chronic obstructive pulmonary disease, unspecified; F41.9 Anxiety disorder, unspecified; G89.4 Chronic pain syndrome; M54.5 Low back pain; E78.00 Pure hypercholesterolemia, unspecified; R47.01 Aphasia; F31.9 Bipolar disorder, unspecified; G47.33 Obstructive sleep apnea (adult) (pediatric); E03.9 Hypothyroidism, unspecified; R47.1 Dysarthria and anarthria; Z86.718 Personal history of other venous thrombosis and embolism; Z86.711 Personal history of pulmonary embolism; Z87.01 Personal history of pneumonia (recurrent); Z90.710 Acquired absence of both cervix and uterus; Z79.82 Long term (current) use of aspirin; Z79.84 Long term (current) use of oral hypoglycemic drugs; Z79.899 Other long term (current) drug therapy; Z88.0 Allergy status to penicillin; Z88.2 Allergy status to sulfonamides; Z88.8 Allergy status to other drugs, medicaments and biological substances
CPT/HCPCS: 10078; 10879

== ENCOUNTER 2018-12-10 14:21 | Inpatient (IN) | payer OTHER ==
[~2018-12-10] VITALS: Ht 160 cm; Wt 83.5 kg
[~2018-12-10 14:21] MED LIST changes: +CLOPIDOGREL75 MG PO; +COZAAR 50 MG TA50 M1 PO; +HYDROCODON-ACE1 EAC7 PO; +NAMENDA 5 MG TAB5 M1 PO; +REMERON15 MG PO
--- NOTE | 2018-12-10 19:10 | NUR ---
PT ARRIVED AT 1700 FROM 3W. VITALS REMAIN STABLE. PAIN MEDICATION ADMINISTERED FOR BACK PAIN 10/18, PT REPOSITIONED Q2H. SKIN REMAINS DRY AND INTACT. Q1H VISUAL CHECKS. CALL LIGHT WITHIN REACH. FALL PRECAUTIONS IN PLACE
[2018-12-10 19:30] VITALS: BP 138/81
--- NOTE | 2018-12-11 01:31 | NUR ---
PT ALERT AND ORIENTED X 4. LEFT SIDED WEAKNESS AND SLURRED SPEECH. BIPAP ON DURING THE NIGHT. PT C/O PAIN IN BACK AND LEFT LEG. HYDROCODONE GIVEN ORDERED. XANAX ALSO GIVEN PER PT REQUEST TO HELP HER SLEEP. ZHANG PATENT DRAINING ADEQUATE AMTS CLEAR YELLOW URINE. TEMP 100.3 ORALLY AT START OF SHIFT. RECHECKED AT 2330 AND IT WAS 98.4. PT HAD NUMEROUS BLANKETS ON HER WHEN TEMP ELEVATED. BED ALARM ON FOR SAFETY. PT APPEARS TO BE SLEEPING ON HOURLY ROUNDS.
[2018-12-11 07:36] LABS: HEMATOCRIT 34.9 % (37.0-47.0); HEMOGLOBIN 11.1 gm/dL (12.0-15.0); MCH 29.1 pg (26.0-34.0); MCHC 31.9 g/dL (28.0-37.0); MCV 91.2 fL (80.0-100.0); RBC 3.83 mil/uL (4.20-5.00); RDW 14.4 % (10.5-14.5); WBC 8.7 thou/uL (4.0-11.0)
[2018-12-11 07:52] LABS: CREATININE 1.4 mg/dL (0.6-1.0); POTASSIUM 3.8 mmol/L (3.5-5.1)
[2018-12-11 10:15] VITALS: BP 124/75
--- NOTE | 2018-12-11 10:45 | NUR ---
chart review, pt up in recliner chair. intro to cm, dcp, transition of care, home health and team meetings. pt preferrs going by wilmar, she is a & o x 3 with some forgetfulness. note during visit pt eyes would close and mouth would only open on left side with verbal communication the whole mouth would open ie when pt stated " oxygen 2 L"/pt. she report and per chart " live in 1st floor apartment, senior complex, alone, independent prior to hospital. still drives, manage own medication and finances. has cane, has cpap with oxygen 2l"/wilmar and chart. pt asked about her sister wanting to come and help her for paid critical care nurse specialist through her insurance. education on community based cg through medicaid and hh is not in home all day. pt requested to found out about medicaid. cm team sent referral to re[facility] olivares. will cont following as needed for dc needs.
--- NOTE | 2018-12-11 11:04 | H ---
[facility] [place] [address] HISTORY AND PHYSICAL Name: ILEANA CASE Room #: 516-1 ADM IN M.R.#: [id number] Admission: 12/10/18 Attend Phys: Parmjit French MD Discharge: Date of : 44 Report #: [id number] THIS REPORT FOR: //name// CC: Chaya French DATE OF SERVICE: 12/10/2018 HISTORY AND PHYSICAL AND POST-ADMISSION PHYSICIAN EVALUATION HISTORY OF PRESENT ILLNESS: The patient has now been admitted for acute in-hospital inpatient rehabilitation. Please see the full history and physical. I agree with the assessment and plan and the examination findings as noted. The patient is a 78-year-old -[place] female who was originally admitted to [facility] on 12/04/2018 with slurred speech and left-sided weakness. She had a fall at home. CT in the ER was negative, but she was thought to have a probable CVA and TPA was administered. She was followed closely by Neurology. She continues to have issues with left-sided weakness and speech difficulties and has had a functional decline. She has now been admitted for acute in-hospital inpatient rehabilitation. Please see the history and physical for prior medical history, social history, allergies, and family history. The patient did have a CVA approximately 10 years ago. She has some left arm weakness at that time. There also was a note of chronic pain syndrome. PHYSICAL EXAMINATION: GENERAL: She was seen earlier, was sleepy, but responsive. VITAL SIGNS: Last recorded temperature 98.4, pulse 69, respirations 17, and blood pressure 138/81. She does have some slurring of speech. HEENT: Otherwise appeared benign. CHEST: Sounded clear to auscultation. CARDIOVASCULAR: Regular rate and rhythm. ABDOMEN: Bowel sounds positive, nontender. GENITOURINARY AND RECTAL: She had the Prince catheter. EXTREMITIES: She does have some weakness of that left upper and left lower extremity appears to be at 3+/5. Some discomfort with moving the left lower extremity, no calf swelling. Negative clonus. Tone is relatively symmetric. Right upper and right lower extremity are more of a grade 4-/5. Functionally, she has been max assist coming to stand and has been max assist trying to take a couple of steps. ASSESSMENT: 1. Clinical cerebrovascular accident, status post TPA. 2. Left-sided hemiparesis/left left-sided weakness. 3. History of chronic obstructive pulmonary disease. 4. Sleep apnea, on CPAP. 5. Chronic pain syndrome with spinal stenosis. [address] [address] HISTORY AND PHYSICAL Name: ILEANA CASE Room #: 516-1 ADM IN M.R.#: [id number] Admission: 12/10/18 Attend Phys: Parmjit French MD Discharge: Date of : 44 Report #: [id number] 6. Noninsulin dependent diabetes mellitus. 7. History of pulmonary embolism. 8. Anxiety, depression. 9. Elevated cholesterol. 10. Hypertension. 11. Gastroparesis. 12. Prior lumbar laminectomy. PLAN: The patient has been admitted for acute in-hospital inpatient rehabilitation. From a postadmission physician evaluation perspective, there are no relevant changes since the preadmission screening. Please see the above review of prior and current medical and functional conditions and comorbidities. Please see the patient's previous and current functional status. As far as risk of complications, the patient has multiple medical comorbidities as noted above. Initial plan of care involves the interdisciplinary acute inpatient rehabilitation program with goal of maximizing the patient's functional independence, so she can hopefully return back to her prior living situation. Measurable functional goals would be for the patient to improve as far as basic transfers and mobility issues, so that she could hopefully be at least at a walker level. Also to improve as far as overall cognition and further assess communication. Prognosis is reasonably good. Estimated length of stay is probably at least 2-3 weeks. Potential barriers would include her multiple medical comorbidities and decreased functional status. The patient meets diagnostic criteria for an acute in-hospital inpatient rehabilitation stay. She meets the medical necessity criteria. She does have the tolerance for therapies and has appropriate discharge goals back to the home setting. <ELECTRONICALLY SIGNED> By: Parmjit French MD 12/11/18 1104 1003 1023 Parmjit French MD /nt
--- NOTE | 2018-12-11 13:06 | NUR ---
Nutrition: pt admitted to rehab unit with CVA with L hemiparesis, S/P TPA. RD notified of poor intake/weight loss nutrition screen. Pt with relatively stable weights per hx. Current weight down 4# from april weight. Variable weights this admit 180-188#. BMI 32, obesity class 1. Poor intake past few days due to need for pureed diet consistency. ST now [facility] and RD observed significantly improved po at lunch meal. Pt likes Glucerna, requests BID. Hx of DM but BG well controlled. Low nutrition risk.
[2018-12-11 15:00] LABS: TSH 0.015 uIU/mL (0.358-3.740)
[2018-12-11 20:11] VITALS: BP 121/61
--- NOTE | 2018-12-11 20:39 | NUR ---
PATIENT ALERT AND ORIENTED WITH FAMILY AT BEDSIDE THIS EVENING. PATIENT COOPERATES WITH POC. COMPLAINE DO ZHANG CATH HURTING. ADOLFO INDICATED FLUSH ZHANG.
--- NOTE | 2018-12-11 23:41 | NUR ---
PT ASSESSMENT DONE AND VSS. MED GIVEN AND WELL TOLERATED. FALL PRECAUTIONS IN PLACE. SLEEPING. ZHANG PATENT AND DRAINING. BIPAP ON AT HS. WILL CONTINUE TO MONITOR.
--- NOTE | 2018-12-12 08:58 | NUR ---
ASSUME PT CARE AT 0700. VSS ON RA. REPORTS SLEPT GOOD LAST NIGHT. BS 81, HR 123/71, HR 72. METFORMIN AND TRAJENTA GIVE. BS HAS BEEN STABLE. ADOLFO CHANGE ACCU CHECK BID. PT C/O DIZZINESS. NOTIFIED ADOLFO PT IS ON CLONIDINE 0.2MG BID AND LOSARTAN 50MG DAILY. ADOLFO SAID IT IS OK TO GIVE THESE MEDS AND WILL CONTINUE TO MONITOR. ZHANG CATH PATENT WITH CLEAR YELLOW URINE. ADOLFO WANTS TO CLAMP TRIALS TODAY. OFFERED SUPPORTIVE CARE. MEDS GIVEN. LABS REVIEWED. DISCUSSED PLAN WITH PT. ENCOURAGED PT TO VOICE HER NEEDS. FALL PRECAUTION IN PLACE. CALL LIGHT WITHIN REACH. CHECK FREQUENTLY FOR NEEDS AND SAFETY. WILL CONTINUE TO MONITOR.
[2018-12-12 09:46] VITALS: BP 123/71
[2018-12-12 19:30] VITALS: BP 135/75
--- NOTE | 2018-12-13 06:07 | NUR ---
PATIENT ALERT AND ORIENTED X4. CPAP ON DURING NIGHT. VERY WEAK ON L SIDE WITH L SIDED FACIAL DROOP. TALKS WITH A SLUR. BLADDER SCAN THIS AM HAD ONLY 48ML. PATIENT CALLED OUT IN MIDDLE OF NIGHT AND SAID SHE COULD NOT GO TO SLEEP. WENT IN TO TALK WITH PATIENT AND SHE SAID SHE WAS ANXIOUS ABOUT GOING HOME BECAUSE HER KIDS HAD TO WORK AND THERE WOULD NOT BE ANYONE TO TAKE CARE OF HER. REASURED HER CASE MANAGEMENT WOULD NOT JUST THROW HER OUT THERE WITHOUT MAKING SURE SHE WAS TAKEN CARE OF. SAT WITH HER UNTIL SHE FELL ASLEEP. C/O PAIN X 1 WITH MED GIVEN AND ANXIOUS MED. SLEPT LITTLE THIS SHIFT.
[2018-12-13 09:54] VITALS: BP 139/72
--- NOTE | 2018-12-13 10:41 | HC ---
[facility] [place] [address] CONSULTATION Name: ILEANA CASE Room #: 516-1 ADM IN M.R.#: [id number] Admission: 12/10/18 Attend Phys: Parmjit French MD Discharge: Date of : 44 Report #: [id number] THIS REPORT FOR: //name// CC: Chaya French DATE OF SERVICE: 12/12/2018 ENDOCRINE CONSULTATION CONSULTING PHYSICIAN: Jeanie Valente NP REASON FOR CONSULTATION: Hypothyroidism, type 2 diabetes mellitus. HISTORY OF PRESENT ILLNESS: This is a 78-year-old female patient whose medical background is significant for multiple medical issues including type 2 diabetes mellitus, hypertension, hyperlipidemia, thromboembolic disease with a history of PE, status post IVC filter placement as well as obstructive sleep apnea. The patient was admitted earlier in November 2018 to [facility] with left-sided weakness and underwent rescue therapy with TPA and monitored in the ICU. However, left-sided weakness persisted and she was eventually stabilized and then transferred to the rehab unit for further rehabilitation and physical therapy. The patient's background is significant for type 2 diabetes mellitus, which she has had for many years. This has been under treatment with metformin 500 mg b.i.d. and pioglitazone 30 mg daily. The patient notes that her glycemic control had been rather adequate with this regimen. The patient also acknowledges that she has hypothyroidism and that she has been with this issue for many years as well and is currently on treatment with levothyroxine 75 mcg daily. Otherwise, the patient has felt well and denies major issues with fatigue, tiredness, significant body weight changes, palpitations or major sleep disturbances. The patient is noted to have hypertension and is on therapy with clonidine and losartan and usually manages to control her blood pressure well. REVIEW OF SYSTEMS: CONSTITUTIONAL: Fatigue, tiredness, but not fever or chills or significant changes in body weight. HEENT: Negative for sore throat, ear discharge or sinus pain. PULMONARY: Negative for shortness of breath, cough or hemoptysis. CARDIAC: Negative for chest pain, palpitations, syncope. GASTROINTESTINAL: Noted for occasional abdominal discomfort, nausea, but no vomiting. [facility] [address] [place] [address] CONSULTATION Name: ILEANA CASE Room #: 516-1 ADM IN M.R.#: [id number] Admission: 12/10/18 Attend Phys: Parmjit French MD Discharge: Date of : 44 Report #: [id number] NEUROLOGY: Left-sided weakness, but no loss of consciousness, seizures or severe recurrent headaches. PSYCHIATRIC: Negative for depression, anxiety, or major sleep disturbances. Negative for hallucinations. SKIN: Negative for ulceration, rash or other major skin issues. PAST MEDICAL HISTORY: 1. Type 2 diabetes mellitus. 2. Hypothyroidism. 3. Hypertension. 4. Hyperlipidemia. 5. PE, status post IVC filter placement. 6. Obstructive sleep apnea. 7. COPD. 8. Anxiety. 9. Depression. 10. Chronic pain syndrome. 11. Spinal stenosis. 12. CVA in 2008, status post left arm weakness. OUTPATIENT MEDICATIONS: Include gabapentin 300 mg at bedtime, Plavix 75 mg daily, ferrous sulfate 325 mg daily, furosemide 40 mg daily, multivitamins daily, metformin 500 mg b.i.d., levothyroxine 75 mcg daily, pantoprazole 40 mg daily, aspirin 81 mg daily, atorvastatin 20 mg daily, vitamin D 2000 units daily, clonidine 0.2 mg b.i.d., donepezil 10 mg at bedtime, losartan 50 mg b.i.d., Singulair 10 mg daily, potassium chloride 10 mEq b.i.d., sucralfate 1 gram at bedtime, albuterol q.6 hours p.r.n., alprazolam 0.25 mg q.8 hours p.r.n. ALLERGIES: THE PATIENT IS ALLERGIC TO CHLORZOXAZONE, PENICILLINS AND SULFA. PAST SURGICAL HISTORY: Hemorrhoidectomy, hysterectomy, IVC filter placement, lumbar laminectomy. FAMILY HISTORY: Noncontributory. SOCIAL HISTORY: The patient is an ex-smoker, but had quit more than a year ago. PHYSICAL EXAMINATION: GENERAL: Pleasant female patient who is not in apparent distress. She sits comfortably in her wheelchair. VITAL SIGNS: Blood pressure is 123/71 mmHg, heart rate of 62 beats per minute, respirations 22 per minute, temperature 36.3 Celsius. CONSTITUTIONAL: Seems comfortable, sitting in her wheelchair, not in apparent distress. HEENT: Anicteric sclerae. Intact extraocular motions. NECK: Supple, without JVD, carotid bruits or lymphadenopathy. I do not [facility] [address] [place] [address] CONSULTATION Name: ILEANA CASE Room #: 516-1 ADM IN M.R.#: [id number] Admission: 12/10/18 Attend Phys: Parmjit French MD Discharge: Date of : 42 Report #: [id number] appreciate thyromegaly. CHEST: Noted for moderate air entry bilaterally with scattered rales and rhonchi, but not crackles. HEART: Regular rate and rhythm without murmurs or gallops. ABDOMEN: Soft and lax without tenderness or organomegaly. She has active bowel sounds. EXTREMITIES: Lower extremity exam is noted for trace ankle edema bilaterally, but not deformities or skin breaks. NEUROLOGIC: Awake, alert and oriented to time, place and person. She has expressive aphasia and left-sided weakness and contractures. PSYCH: Seems appropriate, pleasant, interactive. Normal mood and affect. SKIN: No rash discoloration, ulceration or other major abnormalities. LABORATORY DATA: Blood glucose values here have ranged from 81-122 mg/dL. Otherwise, sodium 148, potassium 3.8, chloride 111, CO2 of 27, anion gap 10, BUN 20, creatinine 1.4, glucose 105, amylase 131, AST 17, lipase 112, total bilirubin 0.3, direct bilirubin 0.1, calcium 9.0, phosphorus 3.1, magnesium 1.9, alkaline phosphatase 110. Total protein is 6.4, albumin 3.1, GFR 44. Ammonia is 11. Lactic acid is 2.4. LDH is 311, total CPK 50, troponin undetectable. Total cholesterol 143, triglycerides 42, HDL 55, LDL 80. Iron is 106. INR is 1.0. White blood count 8.7, hemoglobin 11.1, hematocrit 34.9, platelets 261. TSH is 0.015. Free T4 1.2. Ferritin is 722. Hemoglobin A1c 5.4%. ASSESSMENT AND PLAN: 1. Hypothyroidism: As noted above, the patient had demonstrated a suppressed TSH on the current dose of Synthroid 75 mcg daily; however, with a perfectly normal free T4. After examining and interviewing the patient, she appears to be clinically euthyroid. Based on her outlook and on the free T4 outlook, I would advise to continue with the current dose of Synthroid and following interviewing the patient and after examining her free T4, I lean towards reducing her Synthroid dose from 75 to 50 mcg daily. It is quite likely that at least part of this TSH suppression is due to her overall state and recent illness. However, I would rather be on the safe side and maintain her on the low end of normal for free T4 with the hopes of correcting her TSH gradually over the next 2 months. 2. Type 2 diabetes mellitus: The patient appears to be under excellent glycemic control judging by her hemoglobin A1c of 5.4 and by her daily blood glucose values. I will continue with the current regimen of metformin 500 mg b.i.d. and linagliptin 5 mg daily while she is here in the hospital. Maintain blood glucose monitoring and we will adjust her regimen as needed going forward. 3. Diabetic neuropathy: This seems under adequate control with current gabapentin therapy, she is to continue with the same. 4. Hypertension. The patient's level of blood pressure control is adequate, she is to continue with the current regimen. 5. Hyperlipidemia. The patient is currently on therapy with atorvastatin 20 mg daily and tolerates it well, she is to continue with the same. [address] [address] CONSULTATION Name: EVIEILEANA Lily Room #: 516-1 [facility] IN M.R.#: [id number] Admission: 12/10/18 Attend Phys: Parmjit French MD Discharge: Date of : 42 Report #: [id number] I certainly appreciate this consultation by Dr. Valente. <ELECTRONICALLY SIGNED> By: Prasanna Ann MD 12/13/18 1041 [id number] Prasanna Ann MD /nt
--- NOTE | 2018-12-13 12:27 | NUR ---
ASSUMED CARE OF PT AT 0715. PT IS A&OX4, ANXOIUS AND FORGETFUL, VITAL SIGNS ARE STABLE. VOIDING APPROPRATELY IN BEDPAN OR BEDSIDE COMMODE. REPORTS OF BACK PAIN AND NAUSEA, MANAGED WITH PO MEDICAITONS. PARTICIPATING WITH THERAPIES. FAMILY AT THE BEDSIDE. LEFT-SIDED HEMIPARESIS NOTED ON ASSESSMENT WITH FACIAL DROOP AND SLURRED SPEECH. FALL PRECAUTIONS IN PLACE AND NURSING WILL CONTINUE TO MONITOR.
[2018-12-13 19:50] VITALS: BP 159/91
--- NOTE | 2018-12-14 02:09 | NUR ---
PT ALERT AND ORIENTED X 4. UP TO BSC WITH ASSIST X 2. LEFT SIDED WEAKNESS AND SLURRED SPEECH NOTED. VOIDING ADEQUATE AMTS. INCONT OF URINE X 1 SO FAR IN LARGE AMT. PT REFUSED BLADDER SCAN. STATED THEY JUST DID THAT AND SHE DOESN'T NEED IT. DOES C/O SOME DISCOMFORT WHEN URINATING. DENIES BURNING. C/O HEADACHE AND BACK PAIN. HYDROCODONE GIVEN AT HS. ALSO GIVEN XANAX AT HS PER PT REQUEST TO HELP HER SLEEP. CPAP ON DURING THE NIGHT. BED ALARM ON FOR SAFETY. PT APPEARS TO BE SLEEPING ON HOURLY ROUNDS.
[2018-12-14 07:40] VITALS: BP 133/69
[2018-12-14 12:48] LABS: URINE BILIRUBIN NEGATIVE (Negative); URINE BLOOD NEGATIVE (Negative); URINE CLARITY CLEAR; URINE COLOR YELLOW; URINE GLUCOSE-RANDOM* NEGATIVE (Negative); URINE KETONES NEGATIVE (Negative); URINE LEUKOCYTES-REFLEX TRACE (Negative); URINE NITRITE-REFLEX NEGATIVE (Negative); URINE PROTEIN (DIPSTICK) NEGATIVE (Negative); URINE SPECIFIC GRAVITY <= 1.005 (1.005-1.035); URINE UROBILINOGEN 0.2 E.U./dl (0.2-1.0)
--- NOTE | 2018-12-14 16:23 | HC ---
[facility] [place] [place] [address] CONSULTATION Name: ILEANA CASE Room #: 516-1 ADM IN M.R.#: [id number] Admission: 12/10/18 Attend Phys: Parmjit French MD Discharge: Date of : 42 Report #: [id number] THIS REPORT FOR: //name// CC: Chaya French DATE OF SERVICE: 12/13/2018 NEUROBEHAVIORAL STATUS EXAM ATTENDING PHYSICIAN: Parmjit French MD KENNEL STAFF MEMBER: Geovanny Shirley, PhD CLINICAL PRESENTATION: The patient is a 78-year-old -[place] female admitted to the [facility] with stroke-like symptoms that included left-sided hemiparesis, slurred speech and facial droop. The patient was administered TPA in the Emergency Department and admitted to the Intensive Care Unit. Her MRI and CT scans have been negative for an acute infarction. Her admitting diagnoses to the rehabilitation unit included clinical cerebrovascular accident, status post TPA, left-sided hemiparesis, dysarthria with facial droop, dysphagia, COPD, sleep apnea, chronic pain syndrome secondary to spinal stenosis, non-insulin dependent diabetes, anxiety/depression, gastroparesis, hypertension, history of pulmonary embolism and hyperlipidemia. A complete description of her medical condition and history can be found in her medical record. Neuropsychological consultation was requested to provide assistance in the assessment of cognitive and emotional status and to provide recommendations. Prior to this most recent admission, she was living independently in her own home. 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 She has five children. Her son was present during the interview and indicated that the patient had been independent with driving, management of medication, finances and home making responsibilities. However, he did report that she was assessed for a dementia, but did not know the results of the assessment. TECHNIQUES UTILIZED: Clinical interview, review of medical records, staff consultation and behavioral observation, mini mental status exam 2 standard version, clock drawing and family interview -- son. EXAMINATION FINDINGS: The patient was cooperative with the assessment. However, she presents with stuttering and dysarthric speech. She appears in distress as she put her hands to her head and indicated pain in the left part of her head. She often had her eyes closed during the assessment. Speech required clarification at times because of the significant dysarthric expression. [facility] [address] [place] [address] CONSULTATION Name: ILEANA CASE Room #: 516-1 [facility] IN M.R.#: [id number] Admission: 12/10/18 Attend Phys: Parmjit French MD Discharge: Date of : 42 Report #: [id number] She reports her symptoms to include problems with memory, word finding, sleep, appetite, anxiety, and depression. She indicates frustration to the extent that she was trying to take care of herself and was frustrated that this stroke happened. Her performance on the MMSE 2 brief version was extremely low with a raw score of 10 of 16. She was 3/3 for initial registration, 3/5 for orientation to time, 4/[address] and 1/3 for immediate recall of 3 items after a brief time delay and distraction. Performance on the MMSE 2 standard version was extremely low with a raw score of 18 of 30 and a T score of 12. The patient was 0/5 for serial 7's, 2/2 for naming, 1/1 for repetition, 3/3 for auditory comprehension. She could read and follow a single command and write a sentence; however, dictation was utilized rather than her physically writing a sentence. Visual spatial construction was impaired in organization and construction. Evidence of perseveration was also noted. The patient is presenting with deficits in sustained attention, concentration and immediate recall; however, greater deficits are noted in visual spatial construction. Her mood is very anxious and likely contributing to variability in cognition. DIAGNOSTIC IMPRESSION: Neurocognitive disorder, unspecified with intermittent agitation, extent to be determined, likely moderate Adjustment disorder with anxiety and depressed mood. RECOMMENDATIONS: Continued neurocognitive assessment to evaluate to the extent of cognitive deficits. Her treatment program should include the use of compensatory strategies and cognitive stimulation for areas of immediate recall, concentration and visual spatial construction and organization. The use of relaxation techniques may be of benefit to assist in the management of anxiety. Verbal reassurance along with redirection of attention to breathing strategies for anxiety will also help lessen emotional reactivity. It should be noted that the patient has been taking donepezil so preexisting neurocognitive deficits are likely. Additional to the donepezil, she was taken Memantine and an antidepressant. Reduce as medically appropriate the use of medications with sedating features, example, alprazolam and hydrocodone. Continued use of an antidepressant is indicated. The patient will very likely require supervision and assistance upon her return [address] [address] CONSULTATION Name: ILEANA CASE Room #: 516-1 ADM IN M.R.#: [id number] Admission: 12/10/18 Attend Phys: Parmjit French MD Discharge: Date of : 42 Report #: [id number] home with the management of medication, nutrition and finances. Thank you very much for allowing me to provide the consultation on this patient. <ELECTRONICALLY SIGNED> By: Geovanny Shirley, PhD 12/14/18 1623 [id number] Geovanny Shirley, PhD /nt
--- NOTE | 2018-12-14 17:59 | NUR ---
arrived to pts room after code stroke called. Patient with elevated blood pressure. No defeicits noted other than left sided weakness which was present prior to code stroke being initiated other than complaint of head pain. Dr. Duncan moonfied. Orders for PRN IV hydralazine. Physician denied need for CT scan at this time.
--- NOTE | 2018-12-14 19:26 | NUR ---
ASSUMED CARE OF PT AT 0715. PT A&OX4 AND VITAL SIGNS STABLE. PT PARTICIPATED IN SCHEDULED THERAPIES. ACCU CHECKS BID, HELD PO METFORMIN DUE TO BG <100. AT APPROXIMATELY 1600 NURSE ENTERED PT ROOM AND FOUND PATIENT IN RECLINER CRYING AND SHAKING. NURSE IMMEDIATELY ASSESSED PT. PT REPORTED HEADACHE 10/10 "LIKE IT'S GOING TO BURST" ACCORDING TO PT, FLASHES OF LIGHT, BLOOD PRESSURE TAKEN 180/102 MANUALLY WITH HR 86. PT WAS GIVEN SCHEDULED TYLENOL WHILE PROVIDER WAS PAGED. PROVIDER ORDERED CLONODINE PO AND IM MORPHINE, BOTH WERE GIVEN AND PT WAS CHECKED Q15 MINUTES. AT APPROXIMATELY 1730 PT REPORTED THAT THE MEDICATIONS HAD ONLY TAKEN THE "EDGE OFF" AND THAT THE PAIN WAS 8/10. PATIENT THEN STATED "I GET THE WORST PAIN IN WAVES AND IT FEELS LIKE WHEN I HAD MY STROKES." BLOOD PRESSURE AGAIN RECHECKED AND WAS 177/105 WITH HR OF 76. CODE STROKE PAGED. NIH STROKE SCALE OF 10 DUE TO LEFT-SIDED WEAKNESS PRESENT ON ADMISSION TO UNIT. PROVIDER GAVE ORDERS FOR BLOOD PRESSURE MEDICATIONS IV AND IV WAS PLACED IN RIGHT WRIST. GRANDDAUGHTER CAME TO AND IS AT THE BEDSIDE. PT IS SITTING UP IN BED WITH FAMILY AND REPORTS "IM FEELING BETTER". ONCOMING NURSE NOTIFIED OF PT CONDITION AND CHANGES IN ORDERS. NURSING WILL CONTINUE TO MONITOR.
[2018-12-14 19:30] VITALS: BP 154/91
[2018-12-14 21:46] VITALS: BP 135/76
--- NOTE | 2018-12-15 04:54 | NUR ---
PT TRANSFERRING TO BEDSIDE COMMODE WITH ASSIST X2 AND IS TOLERATING FAIR. LORTAB PROVIDING HEADACHE RELIEF. RESTING COMFORTABLY. NO NEEDS VOICED. CALL LIGHT WITHIN REACH. WILL CONTINUE TO PROVIDE FREQUENT OBSERVATION.
[2018-12-15 05:37] LABS: ALBUMIN 2.6 g/dL (3.4-5.0); CALCIUM 8.7 mg/dL (8.5-10.1); CREATININE 1.5 mg/dL (0.6-1.0); PHOSPHORUS 3.7 mg/dL (2.5-4.9); POTASSIUM 4.1 mmol/L (3.5-5.1)
[2018-12-15 05:58] VITALS: BP 150/92
[2018-12-15 08:21] VITALS: BP 216/123
[2018-12-15 09:01] VITALS: BP 130/92
--- NOTE | 2018-12-15 17:27 | NUR ---
ASSUMED CARE OF PT AT 0715. PT IS A&OX4. BLOOD PRESSURE THIS MORNING ELEVATED AT 216/123 TAKEN MANUALLY BY NURSE, HR 64. PT REPORTED HEADACHE 08/18. PT WAS GIVEN MORNING MEDICAITONS WELL IV HYDRALAZINE. PATIENT'S SISTER VISITED PATIENT SHORTLY AFTER AND BLOOD PRESSURE WAS THEN 130/[address] DE LEON CONTACTED AND PT STARTED ON CLONAZEPAM 0.5MG BID DUE TO INCREASED ANXIETY. ANXIETY, BLOOD PRESSURE, AND HEADACHES MONITORED AND MANAGED WITH PO MEDICATIONS FOR REMAINDER OF SHIFT. ACCU CHECKS BID AND MANAGED WITH PO MEDICATIONS. GEODETIC TECHNICIAN VISITED WITH PT THIS EVENING, PT CRYING AND UPSET ABOUT CONDITION. PT STATES "I JUST WISH GOD WOULD TAKE ME". NURSE SCREENED PT FOR SUICIDE RISK. PT DENIES PLAN OR INTENTION TO HARM HERSELF. "I JUST WISH I WOULD NOT BE HERE" NURSING WILL CONTINUE TO MONITOR PT AND PERFORM FREQUENT VISUAL CHECKS. FALL PRECAUTIONS IN PLACE AND NURSING WILL CONTINUE TO MONITOR.
[2018-12-15 20:55] VITALS: BP 148/87
--- NOTE | 2018-12-16 02:23 | NUR ---
PT ALERT AND ORIENTED X 4. UP IN RECLINER AT START OF SHIFT. TRANSFERRED TO BED AT HS WITH ASSIST X 2. LEFT SIDED WEAKNESS AND SLURRED SPEECH. PT VERY UPSET AT START OF SHIFT. CRYING STATING THEY SAID THIS IS ALL IN MY HEAD. STATED I DON'T KNOW WHAT TO DO. EMOTIONAL SUPPORT PROVIDED. BP 148/87 AT HS. SCHEDULED BP MEDS GIVEN. PT C/O HEADACHE. HYDROCODONE GIVEN AT HS AND PT SLEEPING UPON REASSESSMENT. PT ALSO REQUEST XANAX AT HS FOR SLEEP. MED GIVEN ORDERED. PT HAS CALLED OUT TONIGHT FOR NUMEROUS THINGS. NOT SLEEPING VERY WELL. BED ALARM ON FOR SAFETY. PT CHECKED ON HOURLY ROUNDS.
[2018-12-16 07:15] VITALS: BP 147/82
--- NOTE | 2018-12-16 10:08 | NUR ---
ASSUMED CARE OF PT AT 0715. PT IS A&OX4 AND VITAL SIGNS ARE STABLE. PT REPORTS HEADACHE, PAIN MANAGED WITH PO MEDICATIONS, PARTICIPATING IN THERAPIES. PT IS QUIET, WITHDRAWN, CRYING EPISODES, FLAT AFFECT. ACCU CHECKS BID AND MANAGED WITH PO MEDICAITONS. IV SALINE LOCKED IN LEFT FOREARM, DRESSING C/D/I, FLUSHES APPROPRIATELY, FALL PRECUTIONS IN PLACE AND NURSING WILL CONTINUE TO MONITOR.
--- NOTE | 2018-12-16 13:05 | NUR ---
team meeting, recommendation: re team with dc 01/06/19 [facility](pt,ot,st, nursing, bath aid and sw). family to assist with bills and pills. max help at home, needing 24hr care givers as of team today.
[2018-12-16 19:45] VITALS: BP 147/82
--- NOTE | 2018-12-17 02:19 | NUR ---
assumed care at approx 1900 evening 12/16. pt lying in bed with head of bed elevated visiting with son at bedside. pt alert and oriented x4. pts left side of mouth somewhat droopy but able to understand pts speech. pt given much emotional support as she is worried about finances. pt took hs meds with no problems and given xanax prn as ordered. pt appears to be sleeping soundly wih hourly rounding checks. bed alarm on and call light in reach. will continue to monitor.
[2018-12-17 07:30] VITALS: BP 150/92
--- NOTE | 2018-12-17 10:12 | NUR ---
DISCHARGE PLANNING. REFERRAL FAXED TO [facility], FOR PATIENT BENEFIT CONSULT. VERIFIED RECEIVED. UNIT CM AWARE.
--- NOTE | 2018-12-17 10:45 | NUR ---
KPAD SET UP IN ROOM AND PT MAY USE TO LOWER BACK. UNIT IS HEATING UP FOR HER AT PRESENT TIME WHILE SHE IS IN THERAPY.
--- NOTE | 2018-12-17 14:20 | NUR ---
ASSUMED CARE AT 0700. PATIENT IS ALERT AND ORIENTED X4. PATIENT HAS LEFT SIDE WEAKNESS AND SOME SLURRED SPEECH. PATIENT IS UP TO THE BR WITH Gait belt and WALKER. PATIENT HAS S.L. IN HER LEFT F.A. UP TO DINING ROOM FOR MEALS. SPEECH THERAPY HERE FOR TRIAL FEEDING. FALL AND SAFETY PROTOCOLS IN PLACE. C/O PAIN IN HER LEFT ARM. MEDICATED WITH PRN PAIN MED. CONTINUES TO PROGRESS TOWARDS D/C GOALS. WILL CONTINUE TO MONITER.
[2018-12-17 20:07] VITALS: BP 152/90
--- NOTE | 2018-12-18 02:02 | NUR ---
PT ALERT AND ORIENTED X 4. UP TO BR WITH WALKER AND ASSIST X 1. LEFT SIDED WEAKNESS AND SLURRED SPEECH NOTED. PT HAD COUGHING EPISODE X 1 TONIGHT. STATED SHE WAS CHOKING. PT ABLE TO SPEAK. SUBSIDED AFTER A FEW MINUTES AND WITH EMOTIONAL SUPPORT. C/O HEADACHE. HYDROCODONE GIVEN ORDERED. PT SLEEPING UPON REASSESSMENT. XANAX GIVEN AT HS PER PT REQUEST. CPAP ON DURING THE NIGHT. BED ALARM ON FOR SAFETY. PT APPEARS TO BE SLEEPING ON HOURLY ROUNDS.
--- NOTE | 2018-12-18 06:18 | NUR ---
PT COUGHING AND CLEARING THROAT FREQUENTLY. SECRETIONS CLEAR. PT STATES SHE IS DROOLING AND CHOKING ON HER SALIVA. HOB ELEVATED AT ALL TIMES. WILL CONTINUE TO MONITOR.
[2018-12-18 10:00] VITALS: BP 144/85
--- NOTE | 2018-12-18 10:07 | NUR ---
Followup: CVA with dysphagia. Pt requesting diet upgrade. ST is following and continues to recommend [facility] altered ground diet with NO STRAWS. Has increased time mastication. Appetite is good, >70% of meals and drinking 50% of glucerna shakes bid. No new wt since 12/10 but prior wts have remained within usual pattern of 180-188 lb. Remains low nutrition risk
[2018-12-18 12:32] LABS: HEMATOCRIT 36.3 % (37.0-47.0); HEMOGLOBIN 11.7 gm/dL (12.0-15.0); MCH 29.6 pg (26.0-34.0); MCHC 32.3 g/dL (28.0-37.0); MCV 91.7 fL (80.0-100.0); RBC 3.96 mil/uL (4.20-5.00); RDW 14.7 % (10.5-14.5); WBC 9.4 thou/uL (4.0-11.0)
[2018-12-18 12:40] LABS: CALCIUM 9.4 mg/dL (8.5-10.1); CREATININE 1.4 mg/dL (0.6-1.0); POTASSIUM 3.9 mmol/L (3.5-5.1)
--- NOTE | 2018-12-18 20:07 | NUR ---
PATIENT ALERT AND ORIENTED AND AXIOUS AND HAS MANY REQUEST FROM STAFF THROUGHOUT THE SHIFT. MOST REQUESTS ARE RESPIRATORY RELATED. DR. HESS AND RT AWARE OF PATIENT REQUESTS FOR RT TREATMENTS. [facility] ON PATIENT PER HER REQUEST AND SCD'S AT NIGHT. BOTH SON AND DAUGHTER AT BEDSIDE AT DIFFERENT TIMES LATER IN THE SHIFT. PATIENT INHALER AVAIR IN MED DRAW IN MED ROOM PER DR. HESS REQUESTING FAMILY TO BRING IT TO HOSPITAL.
[2018-12-18 21:30] VITALS: BP 172/84
--- NOTE | 2018-12-19 02:39 | NUR ---
PT ALERT AND ORIENTED X 4. LEFT SIDED WEAKNESS AND SLURRED SPEECH NOTED. PT C/O HEADACHE. HYDROCODONE GIVEN AT HS AND PT SLEEPING UPON REASSESSMENT. CPAP ON DURING THE NIGHT. SCD'S ON. BED ALARM ON FOR SAFETY. PT APPEARS TO BE SLEEPING ON HOURLY ROUNDS.
[2018-12-19 05:40] LABS: ABSOLUTE NEUTROPHILS 5.2 thou/uL (1.4-8.2); BASOPHILS 0.3 % (0.0-2.0); CALCIUM 8.8 mg/dL (8.5-10.1); CREATININE 1.5 mg/dL (0.6-1.0); EOSINOPHILS 3.1 % (0.0-3.0); HEMATOCRIT 28.9 % (37.0-47.0); LYMPHOCYTES 23.8 % (24.0-44.0); MAGNESIUM 1.9 mg/dL (1.8-2.4); MONOCYTES 11.4 % (1.0-8.0); PLATELET COUNT 264 thou/uL (150-400); POLYS 61.4 % (36.0-66.0); POTASSIUM 4.4 mmol/L (3.5-5.1); RBC 3.17 mil/uL (4.20-5.00); RDW 14.7 % (10.5-14.5); WBC 8.5 thou/uL (4.0-11.0)
[2018-12-19 05:57] LABS: HEMOGLOBIN 9.5 gm/dL (12.0-15.0)
[2018-12-19 10:01] VITALS: BP 123/73
--- NOTE | 2018-12-19 11:33 | NUR ---
ASSUMED CARE AT 0700. PATIENT IS ALERT AND ORIENTED X4. PATIENT HAS LEFT SIDED WEAKNESS, AND SLURRED SPEECH AND C/O TREMMORS. LUNGS ARE COARSE AND DEMINISHED. PATIENT CONTINUES ON RESPIRATORY TX. UP IN RECLINER FOR MEALS. FALL AND SAFETY PROTOCOLS IN PLACE. C/O BRICE. MEDICATED WITH PRN PAIN MED. CONTINUES TO PROGESS TOWARDS D/C GOALS. WILL CONTINUE TO MONITER.
--- NOTE | 2018-12-19 12:44 | H ---
[facility] [place] [address] HISTORY AND PHYSICAL Name: ILEANA CASE Room #: 516-1 ADM IN M.R.#: [id number] Admission: 12/10/18 Attend Phys: Parmjit French MD Discharge: Date of : 44 Report #: [id number] THIS REPORT FOR: //name// CC: Chaya French DATE OF SERVICE: 12/10/2018 HISTORY OF PRESENT ILLNESS: This is a 78-year-old -[place] female who presented to the hospital with stroke-like symptoms including left-sided hemiparesis and slurred speech with facial droop. She was administered TPA in the Emergency Department and admitted to the Intensive Care Unit. Her MRI and CT scans have been negative for any acute infarct. She was followed closely by Neurology for an extensive workup. Her echo bubble study was negative. She was also seen by Cardiology for reported chest pain. Her stress test was negative and she did have an echocardiogram showing an EF of 55-60%. She is being treated for clinical CVA due to her debility. She is now admitted to inpatient rehabilitation services. Today, she denies any headache or dizziness. She denies blurred vision. She denies cough or shortness of air. She denies numbness or tingling. She denies chest pain. She denies abdominal pain or nausea. She has a Prince catheter in place still. She denies any constipation. Appetite is good. PAST MEDICAL AND SURGICAL HISTORY: CVA in 2008 with residual left arm weakness, obstructive sleep apnea with home CPAP, asthma, COPD, chronic pain syndrome due to spinal stenosis, history of PE, pneumonia, non-insulin dependent diabetes, history of shingles x3, hemorrhoidectomy, hysterectomy, anxiety, depression, hyperlipidemia, hypertension, hypothyroid, gastroparesis, colonoscopy in the past, has an IVC filter, lumbar laminectomy, history of seizure in the OR, maxillary extractions and has an upper denture. SOCIAL HISTORY: Premorbidly, the patient was living at home alone. She was independent with ADLs and IADLs. She utilized no assistive device. She still drives. 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 She is right handed. She denies fall history (besides the fall that prompted her to call EMS and come into the ER this admission). CODE STATUS: FULL CODE. ALLERGIES: To PENICILLIN, SULFA, ____. CURRENT MEDICATIONS: Gabapentin 300 mg at bedtime to start on 12/17/2018, MiraLax 17 grams daily, Tylenol 1000 mg twice a day, multivitamin daily, Tradjenta 5 mg daily, Lasix 40 mg daily, iron 325 daily, Plavix 75 mg daily, vitamin C 500 mg daily, metformin 500 mg twice a day, Protonix 40 mg daily, Synthroid 75 mcg daily, Carafate 1 gram a.c. and at bedtime, K-Dalila 10 mEq twice [facility] [address] [place] [address] HISTORY AND PHYSICAL Name: ILEANA CASE Room #: 516-1 ADM IN M.R.#: [id number] Admission: 12/10/18 Attend Phys: Parmjit French MD Discharge: Date of : 44 Report #: [id number] a day, oxybutynin 5 mg at bedtime, Singulair 10 mg at bedtime, Remeron 7.5 mg at bedtime, Namenda 5 mg twice a day, losartan 50 mg twice a day, gabapentin 200 mg at bedtime, Aricept 10 mg at bedtime, clonidine 0.2 mg twice a day, vitamin D 2000 units daily, atorvastatin 20 mg daily, aspirin 81 mg daily, primidone 50 mg daily p.r.n. tremors, Xanax 0.25 mg q.8 hours p.r.n., Zofran 4 mg q.6 hours p.r.n., hydrocodone 1 tablet q. 6 hours p.r.n., Colace 100 mg twice a day p.r.n., albuterol inhalation q.6 hours p.r.n. REVIEW OF SYSTEMS: Remainder of her 14-point review of systems is negative except as listed in HPI. PHYSICAL EXAMINATION: VITAL SIGNS: 124/75, respirations 20, pulse 72, temperature 97.6, 100% O2 sat on room air. GENERAL: She is awake, alert. She is oriented x 3. HEENT: Head is normocephalic. Eyes: EOMs are intact. No nystagmus. She does have dysarthric speech and a facial droop. CHEST: Lungs are clear to auscultation bilaterally. No crackle, no wheeze. CARDIAC: Regular rate and rhythm, S1, S2. ABDOMEN: Bowel sounds are positive. Soft, nontender. GENITOURINARY: She has a Prince catheter to dependent drainage with clear yellow urine output. 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 In general, she has significant sensitivity on the left calf. She has no swelling. No sign of infection. She has a negative clonus. Difficult to assess the tone on that leg due to her pain reported. She has no foot drop bilaterally. She has a negative Homans sign bilaterally. She has no pedal edema. Her sensation appears intact as noted above on the left upper and lower extremity. Lower body dressing dependent, bathing dependent, max assist to transfer, max assist in the parallel bars to do 8 feet. She requires mod assist to propel and steer manual wheelchair, requires frequent verbal cues, poor sitting balance. NEUROLOGIC: Speech; she has severe expressive deficits, mild to moderate comprehension deficits. She has pjakfpzm-yb-wyandz cognitive deficits and severe memory deficits. SKIN: Warm, dry and intact. LABORATORY DATA: From 12/11/2018, sodium 148, potassium 3.8, BUN 20, creatinine 1.4. WBCs 8.7, hemoglobin 11.1, hematocrit 34.9, platelets 261. ASSESSMENT: 1. Clinical cerebrovascular accident status post TPA. 2. Left-sided hemiparesis. 3. Dysarthria with facial droop. 4. Dysphagia. 5. Chronic obstructive pulmonary disease. [address] [address] HISTORY AND PHYSICAL Name: ILEANA CASE Room #: 516-1 ADM IN .R.#: [id number] Admission: 12/10/18 Attend Phys: Parmjit French MD Discharge: Date of : 44 Report #: [id number] 6. Sleep apnea, with home continuous positive airway pressure. 7. Chronic pain syndrome secondary to spinal stenosis. 8. Noninsulin dependent diabetes. 9. Anxiety/depression. 10. Gastroparesis. 11. Hypertension. 12. History of pulmonary embolism. 13. Hyperlipidemia. PLAN: The patient has been admitted to acute inpatient rehabilitation for physical, occupational and speech therapies. Her hospital consultants will continue to follow along with her while she is here. She will have a team conference next Saturday for discharge planning needs. Social work services is following. I scheduled her on twice daily Tylenol today and hopefully we can avoid use of her [place]onah as she does appear already drowsy. Discussed with Hospitalist services. We will do a voiding bladder training and voiding trial tomorrow and hopefully discontinue her oxybutynin at that time. Please see extensive orders. <ELECTRONICALLY SIGNED> By: ESTER Alvarez 12/19/18 1244 [id number] 1537 ESTER Alvarez /nt
[2018-12-19 21:01] VITALS: BP 155/89
--- NOTE | 2018-12-19 23:07 | NUR ---
PT RESTING IN BED UPON ARRIVAL TO SHIFT TV ON LIGHTS OFF. [facility] CONTACT WITH CONVERSATION WITH STAFF, BLUNTED AFFECT. THANKING STAFF FOR ALL ASSISTANCE PROVIDED. PT REQUESTED PAIN PILL AND XANAX AND COUGH MED FOR HS AND PROVIDED. RT CALLED FOR CPAPC PLACEMENT. PT AMBUALTED TO RESTROOM. SCDS ON. LUNGS CONTINUE WITH WHEEZES. ANTIBIOTIC PROVIDED. PT REPORTED GREEN SPUTUM.
[2018-12-20 08:02] VITALS: BP 162/99
--- NOTE | 2018-12-20 08:04 | NUR ---
ASSUMED CARE AT 0700. PATIENT IS ALERT AND ORIENTED X4. PATIENT HAS LEFT SIDED WEAKNESS AND SLURRED SPEECH. PATIENT LUNGS ARE COARSE AND DEMINISHED WITH WHEEZING TODAY. PATIENT CONTINUES ON RESPIRATORY TX. PATIENT CONTINUES ON ABT WITHOUT ADVERSE AFFECTS. ABD IS SOFT WITH BSX4. PATIENT IS UP TO THE BATHROOM TO VOID HENRIQUE COLORED URINE. FALL AND SAFETY PROTOCOLS IN PLACE. C/O BRICE PAIN. MEDICATED WITH PRN PAIN MED BY NIGHT NURSE. CONTINUES TO PROGRESS TOWARDS D/C GOALS. UP IN CHAIR FOR MEALS. S.L. IN HER LEFT FORARM PATENT AND INTACT. WILL CONTINUE TO MONITER.
--- NOTE | 2018-12-20 10:19 | NUR ---
PATIENT C/O NOT FEELING MUCH BETTER. C/O SOA, WHEEZING, THE RESPIRATORY TX ARE NOT WORKING, THE ABT IS NOT WORKING. DR. HESS NOTIFIED. DR. HESS RETURNED TELEPHONE CALL AND WILL BE UP TO SEE PATIENT. PATIENT NOTIFIED. PATIENT IS RESTING QUIETLY IN HER RECLINER WITH HER C-PAP ON. WILL CONTINUE TO MONITER.
--- NOTE | 2018-12-21 02:21 | NUR ---
assumed care at approx 1900 evening 12/20. pt lying in bed with head of bed elevated. pt somewhat restless, frustrated, and upset with her prognosis and states she just wants to get out of here. pt given much emotional support and active listening. pt took hs meds with no problems. pt wearing cpap at present and appears to be sleeping. bed alarm on and call light in reach. will continue to monitor.
[2018-12-21 07:30] VITALS: BP 143/87
--- NOTE | 2018-12-21 20:09 | NUR ---
PATIENT ALERT AND ORIENTED AND STATING FEELING MUCH BETTER TODAY. PATIENT ABLE TO ALMOST INDEPENDENTLY WALK WITH WALKER FROM BED TO BATHROOM WITH WALKER. PATIENT DID THIS AT LEAST 4 TIMES TODAY. NEPHEW AND HIS AT BEDSIDE THIS LATE AM AND SON OTTO AT BEDSIDE THIS EVENING. 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 SHE WOULD LIKE TO STOP TAKING TYLENOL STATING SHE THINKS IT'S HARD ON HER LIVER. ASKED DERMATOLOGICAL SURGEON TO PASS ALONG TO PROVIDER IN THE AM. PATIENT WAS IN REHAB GYM THIS AM ON LEG EXERCISE MACHINE. PATIENT STATES SHE WANTS TO GET BETTER AND GO HOME. PATIENT HAD BM TODAY. PATIENT PLAYING INSPIRATIONAL Zebtab MUSIC ON HER PHONE THROUGHOUT THE DAY. PATIENT HYPERTENSIVE THIS AM AND GIVEN BP MEDS AND BP DECREASED. PATIENT REQUESTED PAIN MEDS TODAY FOR STOMACH PAIN.
[2018-12-21 20:12] VITALS: BP 177/89
--- NOTE | 2018-12-22 02:39 | NUR ---
assumed care at approx 1900 evening 12/21. pt lying in bed with head of bed elevated at change of shift. pt alert and oriented x4. pt up to bathroom to void with walker with standby assist tolerating well. pt took hs meds with water tolerating well. pt wearing cpap at present and appears to be sleeping soundly with hourly rounding checks. bed alarm on and call light in reach. will continue to monitor.
[2018-12-22 07:15] VITALS: BP 144/91
[2018-12-22 09:43] VITALS: BP 144/91
--- NOTE | 2018-12-22 09:46 | NUR ---
Received awake on bed. On room air- saturating at 100%. A+Ox4. Assisted in ADLs. Medications given as prescribed, able to swallow meds whole w/o difficulty. On blood sugar monitoring BID- taken and recorded; on oral DM meds; AM CBG of 82, meds still given, pt was able to finish her breakfast tray. Tolerating meals, no nausea, no vomiting or abdominal pain noted. Able to ambulate using walker and gait belt, AO1. Pt with wheezes this AM after shift change, Dr French aware; RT called for pt's scheduled breathing treatments, as per Dr French- he'll inform Networks Computer Consultant as well. Vital signs stable. Pt very keen to go home. Lee craps manager cup with pills this morning upon rounds- informed her that I have not yet started passing meds, asked pharmacy to identify meds- Lee craps manager to take care of incident. Pt tolerated PT session this AM.
--- NOTE | 2018-12-22 13:01 | NUR ---
PATIENT REQUESTED THAT NURSING CONTACT THE UNHAIRING INSPECTOR REGARDING HER CPAP. SHE STATED THAT THIS WAS BROKEN WHEN SHE FELL ON IT AT THE TIME THAT SHE HAD HER STROKE, AND SHE NEEDS A NEW ONE. SHE ALSO REQUESTED THAT WE CHANGE HER AUTHORIZED CONTACT INFORMATION, REMOVING BRY, AND ADDING CANDI VALLEJO RN TO UPDATE THIS.
--- NOTE | 2018-12-22 13:27 | NUR ---
CONTACTS HAVE BEEN UPDATED AND CM HS BEEN NOTIFIED OF PT'S REQUEST REGARDING CPAP. PT REQUESTED SUPPOSITORY, AND DR. KENDRICK WAS CONTACTED, ORDERS RECEIVED.
[2018-12-22 19:10] VITALS: BP 166/86
[2018-12-22 19:11] VITALS: BP 144/91
--- NOTE | 2018-12-23 04:35 | NUR ---
ASSESSMENT; PT REMAIN ALERT AND ORIENT TIMES FOUR. UP WITH SBA, WALKER AND GAIT BELT. PRN PAIN MEDS GIVEN WITH GOOD RESULTS PER PT. C/O FEELING CONSTIPATED IN SPITE OF HAVING 4 LOOSE BM'S. ORDER GIVEN FOR TAP WATER ENEMA PER FIFI FRANCOIS. PT STATE THAT SHE'D WAIT UNTIL LATER TODAY TO DO ENEMA, WHICH SHE SAYS THAT SHE COULD DO HERSELF. SON WAS AT THE BEDSIDE, WITH FOOD FROM HOME FOR THE PT. SLOW PROGRESS TOWARDS DC GOALS. WILL CONTINUE TO MONITOR.
[2018-12-23 07:40] VITALS: BP 175/91
--- NOTE | 2018-12-23 09:37 | NUR ---
ASSUMED CARE AT 0700. PATIENT IS ALERT AND ORIENTED X4. PATIENT GILLESPIE, PATIENT HAS LEFT SIDED WEAKNESS, AND SLURRED SPEECH. LUNGS ARE COARSE AND DEMINISHED. PATIENT CONTINUES ON RESPIRATORY TX. UP TO THE DINING ROOM FOR BREAKFAST. PATIENT IS UP WITH WALKER AND GAIT BELT TO BATHROOM TO VOID HENRIQUE COLORED URINE. FALL AND SAFETY PROTOCOLS IN PLACE. C/O PAIN IN HER LEGS, MEDICATED WITH PRN PAIN MED. CONTINUES TO PROGRESS SLOWLY TOWARDS D/C GOALS. WILL CONTINUE TO MONITER.
--- NOTE | 2018-12-23 14:10 | NUR ---
cm visited with pt on 12/19/18 about wilmar reported to physical therapy, " fell on cpap at home and it is broken, going to need new one"/pt. education that family can call dme company and they will fix or replace it. pt became upset and stated " it was free machine from dr izquierdo office and i need fix before i leave"/wilmar. will cont following as needed for dc needs. team meeting, recommendation: assist with pills and bills. ? hh ( pt, ot, st, nursing, bath aid and sw).
[2018-12-23 20:50] VITALS: BP 186/98
[2018-12-23 22:42] VITALS: BP 186/98
--- NOTE | 2018-12-24 00:40 | NUR ---
PT ASSESSMENT COMPLETED AND VSS. MEDS GIVEN ORDERED AND WELL TOLERATED. FALL PRECAUTIONS IN PLACE. UP TO THE BATHROOM WITH ASST/GAIT/WALKER. PRN PAIN AND ANXIETY MEDICATION HELPFUL. SLEEPING WELL. DENIES NEEDS. WILL CONTINUE TO MONITOR FREQUENTLY.
[2018-12-24 04:21] VITALS: BP 149/92
[2018-12-24 08:00] VITALS: BP 174/97
[2018-12-24 09:03] LABS: HEMATOCRIT 35.1 % (37.0-47.0); HEMOGLOBIN 11.3 gm/dL (12.0-15.0); MCH 29.8 pg (26.0-34.0); MCHC 32.3 g/dL (28.0-37.0); MCV 92.2 fL (80.0-100.0); RBC 3.8 mil/uL (4.20-5.00); RDW 15.2 % (10.5-14.5); WBC 14.8 thou/uL (4.0-11.0)
[2018-12-24 09:13] LABS: CALCIUM 9.2 mg/dL (8.5-10.1); CREATININE 1.5 mg/dL (0.6-1.0); POTASSIUM 3.7 mmol/L (3.5-5.1)
--- NOTE | 2018-12-24 12:04 | NUR ---
ASSUMED CARE AT 0700. PATIENT IS ALERT AND ORIENTED X4. PATIENT GILLESPIE, PRESSURE TEST OPERATOR ARE EQUAL. LUNGS ARE COARSE AND DEMINISHED. PATIENT CONTINUES TO USE CPAP AT [facility]. PATIENT CONTINUES ON RESPIRATORY TX ORDERED. PATIENT IS UP WITH GAIT BELT, WALKER, AND ASSIST OF 1 STAFF. UP TO DINING ROOM FOR MEALS. FALL AND SAFETY PROTOCOLS IN PLACE. C/O BRICE PAIN. MEDICATED WITH PRN PAIN MED. CONTINUES TO PROGRESS TOWARDS D/C GOALS. WILL CONTINUE TO MONITER.
--- NOTE | 2018-12-24 13:11 | PLAN ---
[facility] [place] [address] REHAB UNIT PLAN OF CARE Name: ILEANA CASE Room #: 516-1 ADM IN M.R.#: [id number] Admission: 12/10/18 Attend Phys: Parmjit French MD Discharge: Date of : 44 Report #: [id number] THIS REPORT FOR: //name// CC: Chaya French DATE OF SERVICE: 12/12/2018 PROGRESS NOTE/OVERALL PLAN OF CARE SUBJECTIVE: The patient was seen back today in followup. She was in no distress. Last recorded temperature 98.3, pulse 78, respirations 18, blood pressure is 121/61. No focal calf swelling. She typically uses the BiPAP at night. She has been working in therapies with transfers using a Dynamixyzdy lift. She is mod assist to obtain standing. She did ambulate 8 feet x 2, max assist in the parallel bars. She needs a lot of encouragement. She has a max assist for basic bed mobility. Speech therapy is further evaluating cognition. Diet is pureed thin liquid, noted to have [id number] comprehensive deficits. ASSESSMENT: 1. Clinical, status post TPA. 2. Left-sided hemiparesis. 3. Dysarthria with facial droop. 4. Dysphagia. 5. Chronic obstructive pulmonary disease. 6. Sleep apnea with home continuous positive airway pressure. 7. Chronic pain syndrome secondary to spinal stenosis. 8. Non-insulin dependent diabetes mellitus. 9. Anxiety, depression. 10. Gastroparesis. 11. Hypertension. 12. History of pulmonary embolism. 13. Hyperlipidemia. PLAN: The overall plan of care is based on the preadmission screen, post-admission physician evaluation and information garnered from therapy assessments. 1. Estimated length of stay is probably around 10 days to 2 weeks and likely longer as warranted. 2. Medical prognosis is reasonably good. 3. Anticipated interventions includes the interdisciplinary acute inpatient rehabilitation program. 4. Anticipated functional outcomes would be for the patient to become modified independent with transfers, mobility, ADLs and cognition, communication, so that she can return back to the home setting. [address] [address] REHAB UNIT PLAN OF CARE Name: EVIEILEANA M Room #: 516-1 ADM IN M.R.#: [id number] Admission: 12/10/18 Attend Phys: Parmjit French MD Discharge: Date of : 44 Report #: [id number] 5. Discharge destination is back to the home setting where the patient lives at home by herself. We will need to have increased assistance most likely and will need to see how she progresses. 6. Expected therapy by discipline includes PT, OT and speech 1 hour per day each five days a week throughout the duration of the acute inpatient rehabilitation stay. <ELECTRONICALLY SIGNED> By: Parmjit French MD 12/24/18 1311 1019 1311 Parmjit French MD /nt
--- NOTE | 2018-12-24 14:27 | NUR ---
pt son mino here for visit, cm visit with pt and son on dcp, recommendation from meeting yesterday, son would like her to be about to cook with at least microwave when she returns home and she will be going to her apartment, not going to her daughters home."/mino. pt wanted to know about meal deliver, cm provided with number for meals on wheels [phone] " i can look up number"/son. cm passed on information to pt that she last sleep study was in 2007, pt stated her oxygen is from [facility], cm will check and see if [facility] provided her cpap that pt stated is "broken from falling on it at home prior to hospital"/wilmar. will cont following as needed for dc needs.
[2018-12-24 19:55] VITALS: BP 181/92
--- NOTE | 2018-12-25 03:15 | NUR ---
PT ASSESSMENT COMPLETED. MEDS GIVEN ORDERED AND WELL TOLERATED. FALL PRECAUTIONS IN PLACE. UP TO THE BATHROOM WITH ASST/GAIT/WALKER. PT HAVING LOOSE STOOLS AFTER GETTING MAG [employer] DURING THE DAY. NOW SLEEPING WELL. DENIES NEEDS. CPAP ON WITH 3L NC. SAT WNL. WILL CONTINUE TO MONITOR FREQUENTLY.
[2018-12-25 09:29] VITALS: BP 159/103
--- NOTE | 2018-12-25 12:46 | NUR ---
ALERT X3, COMPLIANT WITH CARES, PAIN MANAGED WITH MEDICATIONS, UP WITH PT WITH GAIT BELT/WALKER. PREFERS HEATING PAD FOR PAIN MANAGEMENT AND COMFORT. AXIOUS AND IRRITABLE. DECLINED TYLENOL TODAY. FALL PRECAUTIONS IN PLACE.
--- NOTE | 2018-12-25 13:14 | NUR ---
Nutrition: pt seen per followup. Continues on rehab unit S/P TPA, clinical CVA ST upgraded diet from [facility] altered ground to regular consistencies yesterday. Good appetite continues 75-100% of meals. On low Na+ diet. BG 79-120, good control. Weight trends within UBW range. States drinks 100% glucerna BID. Generally drinks between meals or at hs as occasionally experiences hypoglycemia at night. Obtained food preferences. Place as low nutrition risk.
[2018-12-25 15:49] VITALS: BP 159/103
[2018-12-25 20:05] VITALS: BP 145/72
[2018-12-25 20:45] VITALS: BP 145/72
--- NOTE | 2018-12-26 03:22 | NUR ---
ASSUMED CARE FROM DAY SHIFT , PT CONITNUE TO C/O BACK AND LEG PAIN AFTER MEDICATION GIVEN LIBRARY SERVICES COORDINATOR CALLED , LIDOICAINE PATCH AND MUSCLE RELAXER GIVEN, PT THEN RESTED THROUGHOUT HOURLY ROUNDS, WILL CONITUE WITH PRESENT PLAN OF CARE.AND REPORT CHANGES OR ABNORMAL FINDINGS.
[2018-12-26 10:16] VITALS: BP 147/64
--- NOTE | 2018-12-26 14:26 | NUR ---
cm spoke with liaison with [facility] to see if have information on where cpap was provided by. will cont following as needed for dc needs. pt o2 that goes through cpap is from [facility], still looking to see where cpap is from.
[2018-12-26 19:50] VITALS: BP 159/96
--- NOTE | 2018-12-27 03:47 | NUR ---
assumed care at approx 1900 evening 12/26. pt alert and oriented, appropriate and cooperative. pt in bathroom with enema before hs and had bm. pt stated she felt better after bm. pt took hs meds with water tolerating well. pt with cpap on at present and appears to be sleeping soundly with hourly rounding. bed alarm on and call light in reach. will continue to monitor.
[2018-12-27 07:30] VITALS: BP 160/101
[2018-12-27 18:43] VITALS: BP 160/101
--- NOTE | 2018-12-27 18:44 | NUR ---
AAOX4 PLEASANT. SPEECH IS SOMETIMES CLEAR AND FLUID AND THEN OTHER TIMES SHE STUDDERS AND SAYS "I HAVE HAD A STROKE" UP TO BR WITH SLOW STEADY GAIT USING ROLLER WALKER AND GAIT BELT. POOR APPETITE FOR MEALS DUE TO SORE IN HER MOUTH. DR. MCKEE AWARE AND ORDERED NYSTATIN. SMALL BLISTER ON RIGHT UPPER BUTTOCKS - WOUND CARE STARTED FOLLOWING LIDOCAINE GEL APPLIED. SON WAS INTO VISIT. PARTICIPATED WITH THERAPY.
[2018-12-27 20:00] VITALS: BP 180/96
--- NOTE | 2018-12-28 01:02 | NUR ---
assumed care approx 1900 evening 12/27. pt alert and oriented x4, appropriate and cooperative. pt up to bathroom to have large bm in toilet. pt took large amt hs meds with water tolerating well. pt now wearing cpap appears to be sleeping soundly with hourly rounding checks. bed alarm on and call light in reach. will continue to monitor.
[2018-12-28 10:21] VITALS: BP 191/96
[2018-12-28 10:30] VITALS: BP 176/104
[2018-12-28 16:02] VITALS: BP 170/100
--- NOTE | 2018-12-28 18:37 | NUR ---
ASSUMED CARE OF PT AT 0715. PT IS A&OX4 WITH FORGETFULNESS. IS ON ROOM AIR, BUT WEARS CPAP AT HS. IS STABLE. REPORTS CHRONIC LOW BACK PAIN THAT IS BEING MANAGED WITH TRANSDERM & ORAL MEDS, & HEATING PAD. PT REMAINS ON CONTACT ISOLATION FOR SHINGLES TO RIGHT GLUT AREA WITH ORAL & TOPICAL MEDICATION APPLIED. PT IS ALSO BEING TREATED FOR ORAL THRUSH. PT IS UP WITH 1 ASSIST, GB, WALKER TO BATHROOM. FALL PRECAUTIONS & HOURLY ROUNDING MAINTAINED. PT BLOOD PRESSURE HAS BEEN ELEVATED THROUGHOUT THE DAY. HYDRALAZINE ADMINISTERED & BP RECHECKED. PT REPROTED A HEADACHE. TYLENOL OFFERED, BUT PT REFUSED. EDUCATION PROVIDED. VITALS & LABS REVIEWED.
--- NOTE | 2018-12-28 19:11 | HC ---
[facility] [place] [address] CONSULTATION Name: ILEANA CASE Room #: 516-1 ADM IN M.R.#: [id number] Admission: 12/10/18 Attend Phys: Parmjit French MD Discharge: Date of : 44 Report #: [id number] THIS REPORT FOR: //name// CC: Chaya French DATE OF SERVICE: 12/27/2018 REASON FOR CONSULTATION: Pain and wound, right gluteal area. HISTORY: The patient is a 78-year-old woman hospitalized in rehab unit at [facility] with a history of morbid obesity, cerebrovascular accident in 2008 with left hemiparesis and weakness. She is admitted with left-sided weakness, aphasia, facial asymmetry and weakness. Wound care is consulted due to complaint of right upper gluteal pain and possible wound. PAST MEDICAL HISTORY: Cerebrovascular accident in 2008, hypertension, diabetes mellitus type 2, morbid obesity, COPD, anxiety and depression, chronic pain syndrome, history of pulmonary embolism in the past. ALLERGIES: PENICILLIN, SULFA, CHLORZOXAZONE. MEDICATIONS: Include gabapentin for chronic pain. PAST SURGICAL HISTORY: Includes hemorrhoidectomy, hysterectomy, IVC filter placement, lumbar laminectomy. PHYSICAL EXAMINATION: GENERAL: Shows an alert, morbidly obese woman, sitting in a chair. She has some difficulty with speech and a mild aphasia. Some slurring of her words. HEENT: Mucous membranes are moist. NECK: Supple. ABDOMEN: Obese. LUNGS: Respirations are unlabored. EXTREMITIES: No extremity wound. Area of pain is her right upper buttock area. Inspection of the right upper buttock area shows a 1.5 x 1.5 cm area of multiple raised blisters, which have not ruptured. This area is very tender to touch and this is the area of her pain. Clinically, these blisters are consistent with shingles or herpes zoster and a sacral dermatome on the right. IMPRESSION: 1. Morbid obesity. 2. Diabetes mellitus type 2 with skin complications. 3. Status post cerebrovascular accident with left hemiparesis. 4. Admitted for evaluation of aphasia, facial asymmetry and weakness. 5. Status post cerebrovascular accident. [facility] [address] [place] [address] CONSULTATION Name: EVIEILEANA M Room #: 516-1 ADM IN M.R.#: [id number] Admission: 12/10/18 Attend Phys: Parmjit French MD Discharge: Date of : 44 Report #: [id number] 6. History of pulmonary embolism. 7. Clinical painful shingles or herpes zoster involving the right sacral dermatome. PLAN: Order topical lidocaine 4% several times a day, notify her medical caretakers. Via their discretion, they are going to order antiviral therapy, wound care team will follow. <ELECTRONICALLY SIGNED> By: Willy Monahan MD 12/28/18 1911 1303 1430 Willy Monahan MD /nt
[2018-12-28 20:20] VITALS: BP 180/98
[2018-12-29 02:33] VITALS: BP 180/98
[2018-12-29 05:57] LABS: ABSOLUTE NEUTROPHILS 5.8 thou/uL (1.4-8.2); BASOPHILS 0.5 % (0.0-2.0); HEMATOCRIT 30.4 % (37.0-47.0); LYMPHOCYTES 28.5 % (24.0-44.0); MCH 30.1 pg (26.0-34.0); MCHC 32.9 g/dL (28.0-37.0); MCV 91.6 fL (80.0-100.0); MONOCYTES 8.9 % (1.0-8.0); PLATELET COUNT 341 thou/uL (150-400); POLYS 58.1 % (36.0-66.0); RBC 3.32 mil/uL (4.20-5.00); RDW 15.4 % (10.5-14.5)
[2018-12-29 06:12] LABS: MAGNESIUM 1.9 mg/dL (1.8-2.4)
[2018-12-29 08:00] VITALS: BP 152/95
--- NOTE | 2018-12-29 12:03 | NUR ---
sangeeta sent patient's facesheet to [facility].
[2018-12-29 16:16] LABS: CALCIUM 9.5 mg/dL (8.5-10.1); CREATININE 1.3 mg/dL (0.6-1.0); POTASSIUM 4.3 mmol/L (3.5-5.1)
--- NOTE | 2018-12-29 16:39 | NUR ---
ASSUMED PT CARE AT 0700. ALERT AND ORIENTEDX 4. FORGETFULNESS, SLURRED SPEECH AT TIME. VSS ON ROOM AIR, REPORTS CHRONIC LOW BACK PAIN RATES PAIN 6/10, MANAGED WITH LIDOCAIN PATCH, EXTRA TYLENOL SCHEDULE. AND PRN HYDROCODONE & HEATING PAD. PT REMAINS ON CONTACT ISOLATION FOR SHINGLES TO RIGHT GLUT AREA WITH ORAL & TOPICAL MEDICATION APPLIED. CONTINUE TO BE ON NYSTATIN FOR ORAL THRUSH. PT IS UP WITH 1 ASSIST, GB, WALKER TO BATHROOM. OFFERED SUPPORTIVE CARE, ENCOURAGED PT TO VOICE HER NEEDS. ASSISTED TO BATHROOM PER REQUEST. PT CONTINENT B&B. FALL PRECAUTIONS & HOURLY ROUNDING MAINTAINED. WILL CONTINUE TO MONITOR.
[2018-12-29 19:44] VITALS: BP 176/108
[2018-12-29 20:15] VITALS: BP 152/95
[2018-12-29 20:50] VITALS: BP 182/96
--- NOTE | 2018-12-29 23:34 | NUR ---
PT ASSESSMENT COMPLETED AND VSS. MEDS GIVEN ORDERED AND WELL TOLERATED. FALL PRECAUTIONS IN PLACE. UP TO THE BATHROOM WITH ASST/GAIT/WALKER. PRN PAIN MEDICATION WORKING WELL. PRN BP MEDICATION FOR ELEVATED BP EFFECTIVE. CPAP WITH CONT 02 SAT MONITOR WNL AT THIS TIME. WILL CONTINUE TO MONITOR FREQUENTLY.
[2018-12-30] VITALS (7 sets, daily range): BP systolic 147–172; BP diastolic 81–108
--- NOTE | 2018-12-30 08:33 | NUR ---
ASSUMED PT CARE AT 0700. REPORTS SLEPT GOOD. ALERT AND ORIENTEDX 4. FORGETFULNESS, SLURRED SPEECH AT TIME. B/P 172/108, GIVE MORNING MEDS ORDERED. NOTIFIED ADOLFO. INCREASE CLONIDINE IN MEDITECH. REPORTS CHRONIC LOW BACK PAIN RATES PAIN 5/10, MANAGED WITH LIDOCAIN PATCH, EXTRA TYLENOL SCHEDULE. PT REMAINS ON CONTACT ISOLATION FOR SHINGLES TO RIGHT GLUT AREA WITH ORAL & TOPICAL MEDICATION APPLIED. CONTINUE TO BE ON NYSTATIN FOR ORAL THRUSH. PT IS UP WITH 1 ASSIST, JERI, WALKER TO BATHROOM. OFFERED SUPPORTIVE CARE, ENCOURAGED PT TO VOICE HER NEEDS. ASSISTED TO BATHROOM PER REQUEST. IMPULSIVE WHEN SHE NEEDS TO GO TO BATHROOM D/T URGENCY. LAST BM WAS YESTERDAY HAD 2X BM YESTERDAY. CONTINUE TO BE ON MIRALAX DAILY. PT CONTINENT B&B. FALL PRECAUTIONS & HOURLY ROUNDING MAINTAINED. WILL CONTINUE TO MONITOR. UP WITH PHYSICAL THERAPIST NOW.
--- NOTE | 2018-12-30 14:01 | NUR ---
TEAM MTG: WILL DO COOKING TASK LATER THIS WEEK, PLAN DC ON 01/06/19 WITH HH-PT, OT,ST, RN, JAVA WEB APPLICATION DEVELOPER, SW AND FRONT WHEELED ROLLER WALKER.
[2018-12-31 08:00] VITALS: BP 188/101
--- NOTE | 2018-12-31 10:55 | NUR ---
cm consult for dcp question again. cm visited with pt at bedside, she up in recliner chair with female friend in room and is ok to visit while she has company. " cpap, pd through [facility] on mo side and meals on wheels"/wilmar. noted clear speech and then diff speech with whole face squinting up during conversation. re- education that [facility] is working on cpap, pd is set up by pt, family and or friend that helps here out rt not knowing how much pt can afford for pd at home. re-education that meals and wheels son mino was working on setting up for her when she gets home. cm left list hh choice and cont to re-education on difference between pd and hh.
--- NOTE | 2018-12-31 19:36 | NUR ---
ASSUMED CARE OF PT AT 0715. PT IS A&OX4, BLOOD PRESSURE ELEVATED, BUT MANAGED WITH PO MEDICAITONS. ACCU CHECKS BID AND MANAGED WITH PO MEDICAITONS. PAIN MANAGED WITH PO MEDICATIONS AND PT PARTICIPATED IN SCHEDULED THERAPIES. JANELLE [facility]SE PLACED TO BLE CALF LENGTH. ISOLATION FOR SHINGLES INFECTION. FALL PRECAUTIONS IN PLACE AND NURSING WILL CONTINUE TO MONITOR.
[2018-12-31 20:04] VITALS: BP 141/82
[2018-12-31 22:13] VITALS: BP 141/82
--- NOTE | 2019-01-01 02:22 | NUR ---
ASSESSMENT: PT REMAIN ALERT AND ORIENT TIMES FOUR. PT IS IN A COMPLAINING MODE TONIGHT. PT C/O NOT HAVING [facility] FOR 3 DAYS, ACCUSSING STAFF OF TAKING EQUIPMENT OUT F HER ROOM TO USE ELSE WHERE, AND THAT NO ONE COMES WHEN SHE CALL OUT. REASSURAMCE GIVEN AND PAIN MANAGED. PT C/O LOWER/MID BACK PAIN, PRN PAIN MEDICATIONS GIVEN WITH PARTIAL RELIEF. PT DID GET ON HER CPAP EARLIER DURING THE NIGHT. FAMILY MEMEBERS WERE AT THE BEDSIDE AT THE BEGINNING OF THE SHIFT. PT'S BP APPEARS TO BE LOWERING, PT DENIES HAVING A HEAD ACHE. SLOW PROGRESS TOWARDS DC GOAL. WILL CONTINUE TO MONITOR.
[2019-01-01 08:05] LABS: ABSOLUTE NEUTROPHILS 4.9 thou/uL (1.4-8.2); EOSINOPHILS 4.6 % (0.0-3.0); HEMATOCRIT 32.3 % (37.0-47.0); HEMOGLOBIN 10.7 gm/dL (12.0-15.0); MCH 30.6 pg (26.0-34.0); MCV 92.6 fL (80.0-100.0); MONOCYTES 10.8 % (1.0-8.0); PLATELET COUNT 332 thou/uL (150-400); POLYS 59.6 % (36.0-66.0); RBC 3.49 mil/uL (4.20-5.00); RDW 15.3 % (10.5-14.5); WBC 8.2 thou/uL (4.0-11.0)
[2019-01-01 08:21] LABS: CALCIUM 8.8 mg/dL (8.5-10.1); CREATININE 1.5 mg/dL (0.6-1.0)
--- NOTE | 2019-01-01 10:20 | NUR ---
Nutrition Follow Up: Continues to consume high PO intake, averaging 86% over the last 6 days and 91% in the last 3 days alone. Remains on a 2 g Na diet. Pt previously receiving vanilla Glucerna BID, but note a new diet order was placed 12/31 and supplements did not get readded. Pt would like to continue the extra protein via these supplements. RD to add back in at breakfast and dinner. Helped pt modify upcoming lunch choices to improve po success. She reports thrush in mouth, needing softer food items to lessen the pain. BGs remain incredibly well controlled, 78-105 mg/dl since 12/29, with Tradjenta and metformin for oral DM meds. Note R buttock wound (shingles infection). On MVI w/ minerals, vitamin C, and iron. Keep as low nutrition risk.
[2019-01-01 10:51] VITALS: BP 150/88
[2019-01-01 12:40] VITALS: BP 136/77
--- NOTE | 2019-01-01 13:32 | NUR ---
cm visited with son mino at bedside and pt again about home health vs private duty cares in home. hh list provided to son as well. son brought in his mom broken cpap for pt son erik to get and deliver to [facility]. per pt " need some one to cook and clean and laundry"/pt. education that pd is set up by pt and family. hh is what cm team is able to send out referral and set up for dcp at home. "go with [facility] if can if not go with [facility]"/pt.
--- NOTE | 2019-01-01 14:22 | NUR ---
ASSUMED CARE OF PT AT 0715. PT IS A&OX3-4, FORGETFUL AT TIME, VITAL SIGNS STABLE. BLOOD PRESSURE DECREASED TODAY FROM YESTERDAY. PT IMPULSIVE AND STATES THAT SHE WANTS TO BE DISCHARGED SOON. MULTIPLE ATTEMPTS TO SELF-TRANSFER TODAY AND TURNING OFF ALARMS. FALL EDUCATION PROVIDED. VISITORS THIS AFTERNOON. CONTINUE ISOLATION FOR SHINGLES. FALL PRECAUTIONS IN PLACE AND NURSING WILL CONTINUE TO MONITOR.
--- NOTE | 2019-01-01 14:27 | NUR ---
DISCHARGE PLANNING. PATIENT DISCHARGING TO HOME WITH HOME HEALTH SERVICES. REFERRAL FAXED TO [facility]. CALL PLACED TO JANU[facility] LIAISON TO NOTIFY OF REFERRAL. LENARD TO REVIEW REFERRAL AND NOTIFY CM. FOLLOWING.
[2019-01-01 19:27] VITALS: BP 136/78
--- NOTE | 2019-01-01 22:00 | NUR ---
UP TO BATHROOM WITH STANDBY ASSIST, NOW IS UNABLE TO MOVE SELF UP IN BED DUE TO BACK PAIN. PAIN MED AND ANXIETY MED PER REQUEST. CONTACT ISOLATION FOR SHINGLES CONTINUES.
[2019-01-02 08:00] VITALS: BP 150/90
--- NOTE | 2019-01-02 16:35 | NUR ---
Cpap issue discussed with [facility]. He will need a physician progress note stating the cpap is broken and beyond repair and the pt requires it nightly and can not be without it. They will need a script with the settings and he should be able to pickup the broken one from her room (son brought in today) and switch out for a new one for nc home saturday. Care team updated.
[2019-01-02 20:06] VITALS: BP 130/75
--- NOTE | 2019-01-02 22:29 | NUR ---
ASSUMED CARE OF PT AT 0715. PT IS A&O X4 AND VITAL SIGNS ARE STABLE. PT IS IMPULSIVE AND MAKES MULTIPLE ATTEMPTS TO SELF TRANSFER AND AMBULATE WITHOUT STAFF. DENIES PAIN AND PARTICIPATED IN SCHEDULED THERAPIES. BLOOD PRESSURE MANAGED WITH PO MEDICATIONS. ACCU CHECKS BID AND MANAGED WITH PO MEDICATIONS. CONTINUE ISOLATION FOR SHINGLES. MULTIPLE VESICLES OPEN, TOPICAL MEDICAITONS ADMINISTERED PER ORDERS, COVERED WITH DRESSING. FALL PRECAUTIONS IN PLACE ND NURSING WILL CONTINUE TO MONITOR.
--- NOTE | 2019-01-03 05:27 | NUR ---
ASSUMED CARE AT APPROX 1900 EVENING 01/02. PT LYING IN BED WITH HEAD OF BED ELEVATED RESTING AND DOZING OFF AND ON. PT ALERT AND ORIENTED X4, APPROPRIATE AND COOPERATIVE. PT TOOK HS MEDS WITH WATER TOLERATING WELL. PT WEARING CPAP AT PRESENT. PT APPEARS TO BE SLEEPING SOUNDLY. WITH CONTINUE TO MONITOR HOURLY ROUNDING. BED ALARM ON AND CALL LIGHT IN REACH.
[2019-01-03 08:09] VITALS: BP 157/101
--- NOTE | 2019-01-03 09:39 | NUR ---
ASSUMED CARE OF PT AT 0715. REPORTS DIDN'T SLEEP WELL. ON REMERON 7.5MG. WILL ASK HOSPITALIST TO ADJUST HER ANXIETY MED TIME AND SLEEPING AID.PT IS A&OX3-4, FORGETFUL AT TIME, VITAL SIGNS STABLE. BLOOD PRESSURE 157/101 THIS AM. B/P MEDS GIVEN ORDED. PT DENIES PAIN. REFUSES SCHEDULE TYLENOL, PT HAS BEEN REFUSED. WILL GET ORDER TO CHANGE TO PRN. DISCUSSED WITH PT ABOUT MEDS AND CARE PLANS TODAY AND ADDRESS PT'S IMPULSIVE AND CONTINUE TO MONITOR. PT IMPATIENT AT TIME. FALL EDUCATION PROVIDED. CONTINUE ISOLATION FOR SHINGLES. BLISTERS LOOKS BETTER. FALL PRECAUTIONS IN PLACE AND NURSING WILL CONTINUE TO MONITOR. PT UP WITH OT FOR ACTIVITY NOW. OFFERED SUPPORTIVE CARE. PT HAS BRIGHT AFFECT AND WORKING WELL WITH THIS DEPUTY COUNTY COUNSEL. BS 88. MORNING MEDS GIVEN. REASSESSMENT PER CHART. LAST BM WAS 2 DAYS AGO. GIVE MIRALAX ORDERED. WILL CONTINUE TO MONITOR.
[2019-01-03 15:46] VITALS: BP 142/63
[2019-01-03 16:16] VITALS: BP 147/76
[2019-01-03 20:10] VITALS: BP 128/69
--- NOTE | 2019-01-04 03:04 | NUR ---
assumed care at approx 1900 evening 01/03. pt lying in bed with head of bed elevated at change of shift. pt dozing off and on. pt awoke to take her several hs meds with water tolerating well. pt wearing cpap and appears to be sleeping soundly. bed alarm on and call light in reach. will continue to monitor.
[2019-01-04 08:30] VITALS: BP 125/76
[2019-01-04 10:00] VITALS: BP 125/70
--- NOTE | 2019-01-04 11:04 | NUR ---
PATIENT UP IN RECLINER TOOK AM MEDS AMBULATED TO BATHROOM WITH STEADY GAIT. THIS NURSE APPLIED CREAMS ORDERED TO BACK AND BUTTOCKS FOR SHINGLES. PT GIVEN PRN PAIN MED AND IS SLEEPING ATE 100% BREAKFAST.
[2019-01-04 20:45] VITALS: BP 94/73
[2019-01-04 20:50] VITALS: BP 94/73
--- NOTE | 2019-01-05 02:41 | NUR ---
PATIENT ASSESSED AND IS ALERT X 4. SKIN WARM AND DRY. HAS SOME SHINGLES ON RIGHT BUTTOCK. HAS NO OTHER SKIN ISSUES. UP WITH STAND-BY ASSIST. WITH WALKER AND GAIT BELT. SHINGLES HAS A AREA ON HER RIGHT BUTTOCK WITH 3-4 SPOTS ON AREA. TX DONE TO SHINGLES. DENIES ANY PAIN. BED ALARM ON ALL SHIFT. VS STABLE. NO EDEMA NOTED TO LOWER EXTREMITIES. HAD AN UPSET STOMACH SO ATE SOME CRACKERS IN WHICH THAT HELPED. TAKES MEDICATION WELL. ON ROOM AIR. NO SOA NOTED. CONT PLAN OF CARE.
[2019-01-05 08:54] VITALS: BP 143/77
--- NOTE | 2019-01-05 09:13 | NUR ---
ASSUMED CARE OF PT AT 0715. REPORTS SLEPT BETTER LAST NIGHT SINCE MEDS CHANGE ON SATURDAY NIGHT. ALERT AND ORIENTED X4, ABLE TO VOICE HER NEEDS. LAST BM WAS SATURDAY. MIRALAX GIVEN WITH WARM PRUNE JUICE THIS AM PER REQUEST. B/P IS 143/77. VSS THIS AM. NOTICED ADOLFO MEDS SOME CHANGE ABOUT B/P THIS AM. MORNING MEDS GIVEN. LASIX CHANGE TO PRN EDEMA IS WENT DOWN TO 1+ PT WANTS TO TAKE LASIX THIS AM. GIVE MED AND EDUCATE PT THAT SHE DOESN'T NEED TO TAKE IT EVEN SHE TAKES IT DAILY IN THE PAST. DISCUSSED WITH PT ABOUT MEDS AND CARE PLANS TODAY AND ENCOURAGE PT TO CALL WHEN SHE GETS UP. PT REQUESTS TO BE MOD INDEPENT IN ROOM SINCE SHE WILL GO HOME TOMORORROW. WILL TALK WITH PHYSICAL THERAPIST. FALL EDUCATION PROVIDED. CONTINUE ISOLATION FOR SHINGLES. BLISTERS LOOKS BETTER. FALL PRECAUTIONS IN PLACE AND NURSING WILL CONTINUE TO MONITOR. PT IS UP IN RECLINER EATING BREAKFAST, SPEECH THERAPIST IS WITH PT NOW.
--- NOTE | 2019-01-05 13:40 | NUR ---
cm received phone call from wilmar in cm office. " well when going to found out if going to have cg when leave tomorrow and need to know how long they be in the home?"/pt. re-education that cm would come and talk with her. cm visited with pt and donald herzog at bedside, pt getting ready to work on laundry with ot. cm provided [facility] number and brochure for [facility]. re-education that hh is not private duty and only in home for little bit. provider plus will deliver fww prior to dc tomorrow. pt cpap not in room, asked her if [facility] came to get it? " he must have"/donald herzog. will cont following as needed for dc needs.
[2019-01-05 14:48] VITALS: BP 186/95
[2019-01-05 15:17] VITALS: BP 186/95
[2019-01-05 17:00] VITALS: BP 140/79
[2019-01-05 17:07] VITALS: BP 140/79
[2019-01-05 19:57] VITALS: BP 131/80
--- NOTE | 2019-01-05 23:59 | NUR ---
PT ASSESSMENT DONE AND VSS. MEDICATION GIVEN AND WELL TOLERATED. FALL PRECAUTIONS IN PLACE. SLEEPING WELL. WILL CONTINUE TO MONITOR.
[2019-01-06 08:00] VITALS: BP 152/88
--- NOTE | 2019-01-06 09:08 | NUR ---
ASSUMED CARE OF PT AT 0715. REPORTS SLEPT BETTER.VSS ON RA. IN GOOD SPIRIT. ALERT AND ORIENTED X4, ABLE TO VOICE HER NEEDS. BS 95. PT CALLED FOR HELP NEED. PT UP TO BATHROOM WASHED HERSELF. NIGHT TANK ASSEMBLER HELPED WITH HER HAIR AND SHE VERY PLEASED WITH THE CARE SHE RECEIVES HERE. REASSESSMENT PER CHART. STAFF TALKED WITH MANAGE B/P AND TAKE MEDS YESTERDAY. PT SAID SHE BROKE HER CPAP WHEN SHE FELT AT HOME AND HOPE CM WILL HELP HER TO HAVE ANOTHER CPAP AND WALKER WHEN SHE GO HOME. OFFER SUPPORT AND ENCOURAGEMENT. PT HAS BEEN DOING SO WELL AND SHE SAID SHE HAS LEARNED ALOT ON THE REHAB AND LEARN TO TAKE CARE OF HERSELF AT HOME. FALL PRECAUTION IN PLACE. ENCOURAGE PT TO CALL AND WAIT FOR STAFF TO COME TO ASSIST HER. CALL LIGHT WITHIN REACH. WILL CONTINUE TO MONITOR. PLAN TO DISCHARGE AROUND NOON. CONTINUE TO BE ON ISOLATE FOR SHINGLE. BLISTERS LOOKS BETTER. PT IS UP IN RECLINER EATING BREAKFAST.
--- NOTE | 2019-01-06 10:00 | NUR ---
bedside nurse passed on that pt wanted to know about cpap, if family has to go and pick it up or how going to get. cm re-education that per [facility] will be sent to pt home address on face sheet. rx for cpap and f2f noted to be sent to [facility]. provider plus already brought pt her fww today for dc home with [facility].
[2019-01-06] MEDS ORDERED: MIRALAX17 GM PO (10:44)
[2019-01-06] MEDS ORDERED: HYDRALAZINE 10M10 MG PO (10:44)
[2019-01-06] MEDS ORDERED: COZAAR 50 MG TA50 M1 PO (10:44)
[2019-01-06] MEDS ORDERED: VOLTAREN GEL 1100 G2 TOP (10:44)
[2019-01-06] MEDS ORDERED: REMERON15 MG PO (10:44)
[2019-01-06] MEDS ORDERED: NEURONTIN 300300 M1 PO (10:44)
[2019-01-06] MEDS ORDERED: VALTREX 500 MG500 MG PO (10:44)
[2019-01-06] MEDS ORDERED: FLONASE 0.05%50 MCG NASAL (10:44)
[2019-01-06] MEDS ORDERED: TRIAMCINOLONE A15 G3 TOP (10:44)
[2019-01-06] MEDS ORDERED: NORVASC10 MG PO (10:44)
[2019-01-06] MEDS ORDERED: CLONAZEPAM 0.50.5 M1 PO ×2 (10:49→11:46)
[2019-01-06 10:58] VITALS: BP 152/88
[2019-01-06] MEDS ORDERED: HYDROCODON-ACE1 EAC7 PO (11:46)
[2019-01-06 11:58] VITALS: BP 143/72
[2019-01-06 13:47] VITALS: BP 186/95
== END 2019-01-06 12:22 | disposition home health service (06) | DRG 56 ==
LOC: ENTRNSPT 01-06 12:04
PROVIDERS: Hospitalist; Internal Medicine; Nurse Practitioner; ADMIT Physical Medicine & Rehabilitation
PROC: 5A09557 Assistance with Respiratory Ventilation, Greater than 96 Consecutive Hours, Continuous Positive Airway Pressure (ICD-10-PCS; principal; 2018-12-10)
PROC: 5A09357 Assistance with Respiratory Ventilation, Less than 24 Consecutive Hours, Continuous Positive Airway Pressure (ICD-10-PCS; 2018-12-14)
PROC: 5A09357 Assistance with Respiratory Ventilation, Less than 24 Consecutive Hours, Continuous Positive Airway Pressure (ICD-10-PCS; 2018-12-15)
PROC: 5A09357 Assistance with Respiratory Ventilation, Less than 24 Consecutive Hours, Continuous Positive Airway Pressure (ICD-10-PCS; 2018-12-17)
PROC: 5A09357 Assistance with Respiratory Ventilation, Less than 24 Consecutive Hours, Continuous Positive Airway Pressure (ICD-10-PCS; 2018-12-18)
PROC: 5A09457 Assistance with Respiratory Ventilation, 24-96 Consecutive Hours, Continuous Positive Airway Pressure (ICD-10-PCS; 2018-12-19)
PROC: 5A09357 Assistance with Respiratory Ventilation, Less than 24 Consecutive Hours, Continuous Positive Airway Pressure (ICD-10-PCS; 2018-12-26)
PROC: 5A09457 Assistance with Respiratory Ventilation, 24-96 Consecutive Hours, Continuous Positive Airway Pressure (ICD-10-PCS; 2018-12-28)
PROC: 5A09357 Assistance with Respiratory Ventilation, Less than 24 Consecutive Hours, Continuous Positive Airway Pressure (ICD-10-PCS; 2019-01-01)
PROC: 5A09357 Assistance with Respiratory Ventilation, Less than 24 Consecutive Hours, Continuous Positive Airway Pressure (ICD-10-PCS; 2019-01-02)
PROC: 5A09357 Assistance with Respiratory Ventilation, Less than 24 Consecutive Hours, Continuous Positive Airway Pressure (ICD-10-PCS; 2019-01-03)
PROC: 5A09357 Assistance with Respiratory Ventilation, Less than 24 Consecutive Hours, Continuous Positive Airway Pressure (ICD-10-PCS; 2019-01-04)
DX: I69.354 Hemiplegia and hemiparesis following cerebral infarction affecting left non-dominant side (principal); I63.9 Cerebral infarction, unspecified; E87.0 Hyperosmolality and hypernatremia; N17.9 Acute kidney failure, unspecified; J44.0 Chronic obstructive pulmonary disease with (acute) lower respiratory infection; B37.0 Candidal stomatitis; J44.1 Chronic obstructive pulmonary disease with (acute) exacerbation; E44.0 Moderate protein-calorie malnutrition; R47.1 Dysarthria and anarthria; R13.10 Dysphagia, unspecified; R29.810 Facial weakness; F32.9 Major depressive disorder, single episode, unspecified; E11.43 Type 2 diabetes mellitus with diabetic autonomic (poly)neuropathy; K31.84 Gastroparesis; E78.5 Hyperlipidemia, unspecified; G89.4 Chronic pain syndrome; E03.9 Hypothyroidism, unspecified; G47.33 Obstructive sleep apnea (adult) (pediatric); F43.23 Adjustment disorder with mixed anxiety and depressed mood; E66.01 Morbid (severe) obesity due to excess calories; E11.628 Type 2 diabetes mellitus with other skin complications; E78.00 Pure hypercholesterolemia, unspecified; I12.9 Hypertensive chronic kidney disease with stage 1 through stage 4 chronic kidney disease, or unspecified chronic kidney disease; N18.9 Chronic kidney disease, unspecified; E11.22 Type 2 diabetes mellitus with diabetic chronic kidney disease; F03.90 Unspecified dementia, unspecified severity, without behavioral disturbance, psychotic disturbance, mood disturbance, and anxiety; J20.9 Acute bronchitis, unspecified; K59.00 Constipation, unspecified; B02.9 Zoster without complications; M48.00 Spinal stenosis, site unspecified; Z79.02 Long term (current) use of antithrombotics/antiplatelets; Z86.711 Personal history of pulmonary embolism; Z79.899 Other long term (current) drug therapy; Z79.84 Long term (current) use of oral hypoglycemic drugs; Z79.82 Long term (current) use of aspirin; Z90.710 Acquired absence of both cervix and uterus; Z87.891 Personal history of nicotine dependence; Z88.0 Allergy status to penicillin; Z88.2 Allergy status to sulfonamides; Z88.8 Allergy status to other drugs, medicaments and biological substances; Z68.32 Body mass index [BMI] 32.0-32.9, adult
CPT/HCPCS: 10112

== ENCOUNTER 2019-01-14 10:34 | Emergency (ER) | payer OTHER ==
[~2019-01-14] VITALS: Ht 160 cm; Wt 83.0 kg
[~2019-01-14 10:34] MED LIST changes: +CLONAZEPAM 0.50.5 M1 PO; +FLONASE 0.05%50 MCG NASAL; +HYDRALAZINE 10M10 MG PO; +MIRALAX17 GM PO; +TRIAMCINOLONE A15 G3 TOP; +VALTREX 500 MG500 MG PO; +VOLTAREN GEL 1100 G2 TOP
[2019-01-14 11:28] VITALS: BP 157/88
== END 2019-01-14 11:36 | disposition home or self-care (01) ==
LOC: ER 10:34
DX: I10 Essential (primary) hypertension (principal); E11.9 Type 2 diabetes mellitus without complications; E78.00 Pure hypercholesterolemia, unspecified; E03.9 Hypothyroidism, unspecified; J44.9 Chronic obstructive pulmonary disease, unspecified; G47.30 Sleep apnea, unspecified; M48.00 Spinal stenosis, site unspecified; F41.9 Anxiety disorder, unspecified; F32.9 Major depressive disorder, single episode, unspecified; Z86.711 Personal history of pulmonary embolism; Z90.710 Acquired absence of both cervix and uterus; Z86.73 Personal history of transient ischemic attack (TIA), and cerebral infarction without residual deficits; Z88.0 Allergy status to penicillin; Z88.2 Allergy status to sulfonamides; Z88.8 Allergy status to other drugs, medicaments and biological substances

== ENCOUNTER 2019-02-02 10:17 | Inpatient (IN) | payer OTHER ==
[~2019-02-02] VITALS: Ht 160 cm; Wt 81.6 kg
[2019-02-02 10:33] VITALS: BP 165/96
[2019-02-02 11:12] LABS: HEMATOCRIT 38.4 % (37.0-47.0); HEMOGLOBIN 12.6 gm/dL (12.0-15.0); MCHC 32.7 g/dL (28.0-37.0); MCV 91.8 fL (80.0-100.0); PLATELET COUNT 328 thou/uL (150-400); RBC 4.19 mil/uL (4.20-5.00); RDW 15.7 % (10.5-14.5); WBC 8.1 thou/uL (4.0-11.0)
[2019-02-02 11:23] LABS: ANION GAP 11 mmol/L (7-16); BUN 15 mg/dL (7-18); CALCIUM 9.6 mg/dL (8.5-10.1); CHLORIDE 105 mmol/L (98-107); CO2 26 mmol/L (21-32); CREATININE 1.4 mg/dL (0.6-1.0); GLUCOSE 118 mg/dL (74-106); POTASSIUM 3.7 mmol/L (3.5-5.1); SODIUM 142 mmol/L (136-145)
[2019-02-02 11:27] LABS: APTT 27.6 Seconds (24.5-32.8); PROTIME 10.7 Seconds (9.3-11.4)
[2019-02-02 11:32] LABS: ALBUMIN 3.4 g/dL (3.4-5.0); SGOT 17 U/L (15-37); SGPT 12 U/L (30-65); TOTAL BILIRUBIN 0.2 mg/dL (<0.1-1.0); TROPONIN-I <0.06 ng/mL (<0.06)
[2019-02-02 12:03] LABS: ABSOLUTE NEUTROPHILS 5.3 thou/uL (1.4-8.2); PLATELET ESTIMATE NORMAL
[2019-02-02 14:36] VITALS: BP 132/97
[2019-02-02 14:43] VITALS: BP 142/88
[2019-02-02 15:00] VITALS: BP 143/79
[2019-02-02 19:29] VITALS: BP 155/95
--- NOTE | 2019-02-02 20:11 | NUR ---
ASSUMED CARE OF PATIENT APPROX 1500. PATIENT BREATHING REGULAR WITH WHEEZING HEARD ACCROSS LUNGS. PATIENT STATES SHE DOESNT FEEL SHORT OF AIR. PATIENT TOLERATED DIET. PATIENT DENIES PAIN. PATIENT DOES HAVE NON PRODUCTIVE COUGH WITH GOOD COUGH EFFORT. PATIENT FEELS SHE IS NO LONGER ABLE TO CARE FOR HERSELF AT HOME AND WOULD LIKE TO SPEAK WITH CASE MANAGEMENT ABOUT FPC PLACEMENT. WILL CONTINUE TO MONITOR.
[2019-02-03 00:12] VITALS: BP 131/66
--- NOTE | 2019-02-03 04:47 | NUR ---
ASSUMED PATIENT CARE AT SHIFT CHANGE. ASSESSMENT CHARTED. MEDICATIONS GIVEN PER MAY. O2 REMAINS WNL ON RA. PATIENT IS A&OX4, VSS, AND VOICES RIB PAIN DUE TO COUGHING. PRN PAIN MEDICATION ADMINISTERED PER MAY. PATIENT GETS UP WITH ASSIST TO THE BEDSIDE COMMODE. 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 PATIENT IS PLEASANT AND VOICES NO OTHER CONCERNS AT THIS TIME. FALL PRECAUTIIONS ARE IN PLACE, WILL CALL IF NEEDED. WILL CONTINUE TO MONITOR AND FOLLOW POC
--- NOTE | 2019-02-03 05:40 | NUR ---
PATIENT IS NOW COUGHING UP GREEN SPUTUM. PAIN IS WORSENING. PRN PAIN MEDS GIVEN. CALLED PRATITIONER FOR A SPUTUM CULTURE ORDER. PRACTIONER WAS NOT ABLE TO ANSWER. WILL CALL AGAIN AND CONTINUE TO MONITOR
--- NOTE | 2019-02-03 07:55 | EKG ---
[place] [address] [employer] [place] [address] ELECTROCARDIOGRAM REPORT Name: ILEANA CASE Room #: 464-P [facility].#: [id number] Admission: 02/02/19 Attend Phys: Alyssa Kuhn MD Discharge: Date of : 44 Report #: [id number] THIS REPORT FOR: //name// [facility] ED Test Date: 2019-02-02 Test Time: 10:42:15 Pat Name: ILEANA CASE Department: Room: 464 Gender: F Gas Station Operator: : [id number] Requested By: Cheo Lomas Order Number: [id number] MD: Bruce Enriquez Measurements Intervals Spencer Rate: 77 P: 28 NC: 162 QRS: -35 QRSD: 82 T: 117 QT: 442 QTc: 501 Interpretive Statements Sinus rhythm Left ventricular hypertrophy Inferior infarct, old Poor R wave progression Prolonged QT interval Compared to ECG 12/07/2018 16:24:40 No significant change was found Electronically Signed On 02-03-2019 7:55:29 WELDING PANTOGRAPH MACHINE OPERATOR by Bruce Enriquez [email or web address] <ELECTRONICALLY SIGNED> By: Bruce Enriquez MD, [facility] 02/03/19 0755 [id number] Bruce Enriquez MD, [facility] /EPI
[2019-02-03 08:11] VITALS: BP 138/89
--- NOTE | 2019-02-03 13:06 | NUR ---
INITIAL ASSESSMENT: Pt evaluated for d/c planning needs. Reviewed chart and spoke with nurse and pt. Pt is alert and oriented. Pt was hospitalized at [facility] in November and went to [facility]. Pt d/c home to her apartment with [employer]. Pt has walker and oxygen ([employer]). Pt wants to go to SNF. Pt was given SNF list in network with her insurance. She said [facility] had been trying to assist her with SNF placement prior to her admission to the hospital. Pt wants to go to [facility] SNF on d/c from hospital. Asked farm planner to fax referral to [facility]. Will remain available to assist as needed.
--- NOTE | 2019-02-03 14:39 | NUR ---
DISCHARGE PLANNING. POST ACUTE RECOMMENDED AT DISCHARGE. PATIENT REFERRAL FAXED TO [facility] PER REQUEST. CALL PLACED TO DARLENE FOSTER ADMISSIONS TO NOTIFY. NO DISCHARGE DATE ESTABLISHED AT THIS TIME. KRISTIN AWARE. FOLLOWING.
[2019-02-03 14:54] VITALS: BP 129/84
--- NOTE | 2019-02-03 19:46 | NUR ---
Received awake on bed. Due medications given as prescribed, able to swallow meds w/o difficulty. A+Ox4. On room air. Vital signs stable. On blood sugar monitoring, taken and recorded accordingly, no insulin coverage. Complained of pain, due PRN medications given as prescribed. A/w sample for sputum culture. Pt's lung sounds coarse and wheezy- with breathing treatments ordered. Pt continent, able to walk to the bathroom with standby assist using walker. With NS at 125cc/hr, infusing well at R hand. Falls bundle in place. Pt seen by Dr Kuhn- to d/c IV fluids and shift to SL. Pt's still having SOA- PRN breathing treatment given as prescribed by RT. Assisted in ADLs.
[2019-02-03 20:55] VITALS: BP 137/80
--- NOTE | 2019-02-04 02:43 | NUR ---
ASSUMED CARE OF PT AT 1900HRS. PT IS AOX4 AND LETS NEEDS BE LNOWN. FALL PRECAUTION IN PLACE. PT COMPLAIINED OF PAIN, NAUSEA AND SOA. PRN MEDS WERE USED. BI-PAP USED DURING BEDTIME. PT WAS ABLE TO GET COMFORTABLE AND SLEEP PART OF THE SHIFT. VSS AND NO S/S OF ACUTE DISTRESS. WILL CONTINUE TO MONITOR.
[2019-02-04 05:43] VITALS: BP 141/74
[2019-02-04 08:05] VITALS: BP 140/85
--- NOTE | 2019-02-04 10:44 | NUR ---
LOIS reviewed chart and spoke with nursing and attending physician. Pt is progressing towards goals for discharge to post-acute care. Referral has been sent to [facility] for review. PT/OT ordered today to evaluate pt. Will need insurance authorization for post-acute placement. LOIS updated Cait at [facility]. LOIS contacted manager community development of therapy to ask for early evaluations today. LOIS is following to assist as needed with discharge planning.
[2019-02-04 17:30] VITALS: BP 129/77
[2019-02-04 19:54] VITALS: BP 151/83
--- NOTE | 2019-02-04 20:00 | NUR ---
Received awake on bed. Due medications given as prescribed, able to swallow meds w/o difficulty. A+Ox4. On room air. Vital signs stable. Assisted in ADLs. Falls risk- falls bundle in place. Able to go to the bathroom, A01 using walker. Pt still SOB, PRN breathing treatments given as prescribed. With non productive cough- still unable to send specimen for sputum culture. On blood sugar monitoring- taken and recorded accordingly. With SL at R Hand- intact and flushing well. Pt seen by Dr Kuhn- pulmo consult placed, pt seen by physician, to continue breathing treatments and steroids increased. To continue monitoring patient.
--- NOTE | 2019-02-05 03:20 | NUR ---
PT IS A/O X4.PT CARE ASSUMED AT 1900 WITH PT IN BED.PT C/O OF PAIN AND PAIN MGT WITH HYDROCODONE.PT IS ON BREATHING TREATMENT.PT REQUESTED MIRALAX TO BE GIVEN AT BEDTIME INSTEAD OF MORNING.PT IS ON BIPAP AT NIGHT AND ROOM AIR DURING THE DAY.PT BLOOD GLUCOSE WAS 193 AND RAFTER CUTTING MACHINE OPERATOR PRISCILA PAGED AND ORDERED LOW DOSE SLIDING SCALE INSULIN.CONTINUE TO MONITOR POC TILL EOS
[2019-02-05 04:26] VITALS: BP 154/79
[2019-02-05 07:51] VITALS: BP 159/83
--- NOTE | 2019-02-05 11:08 | NUR ---
PT A&OX4, VSS, NO PAIN AT THIS TIME. IV REMOVED D/T IRRITATION PER PT. PATIENT HAS NON PRODUCTIVE COUGH, WHEEZES HEARD ACCROSS LUNGS, PATIENT DENIES SOA. RESPIRATORY THERAPY IN FOR BREATHING TREATMENT. PATIENT UP TO RECLINER, NO SIGNS OF DISTRESS. O2 SATS ARE 98%. WILL CONTINUE TO MONITOR.
[2019-02-05 14:22] VITALS: BP 152/89
--- NOTE | 2019-02-05 18:40 | NUR ---
PT STATES SHE IS UNHAPPY WITH CARE. PATIENT FEELS HER CALL LIGHT ISNT ANSWERED FAST ENOUGH AND SHE IS NOT GETTING THE THINGS SHE ASKS FOR. THIS NURSE HAS ATTENDED TO NEEDS OF PATIENT MORE OFTEN AND SOON POSSIBLE.
[2019-02-05 20:16] VITALS: BP 142/74
--- NOTE | 2019-02-06 03:34 | NUR ---
PATIENT AOX4 MAKES NEEDS KNOWN. PATIENT HAS A FLAT AFFECT, POOR EYE CONTACT, FAIR GROOMING AND HYGIENE. PATIENT C/O CONSTIPATION, WILL SEE PATIENT IN THE AM, PER REPORT. PAIN CONTROLLED THIS SHIFT. PATIENT REQUESTED FOR SLEEPING MEDS. ROAD GRADER. CALLED NEW ORDER TO REPEAT MELATONIN. PATIENT SHORTNESS OF AIR WITH ACTIVITIES. PATIENT IN BED ASLEEP AT THIS TIME BREATHING REGULAR AND UNLABOURED.
[2019-02-06 06:28] VITALS: BP 149/78
[2019-02-06 09:20] VITALS: BP 151/85
[2019-02-06 12:25] LABS: CALCIUM 9.1 mg/dL (8.5-10.1); CREATININE 1.6 mg/dL (0.6-1.0); POTASSIUM 3.7 mmol/L (3.5-5.1)
[2019-02-06 14:49] VITALS: BP 148/85
--- NOTE | 2019-02-06 15:58 | NUR ---
RESUMED CARE AT 0700. PT IS AWAKE AND REQUESTING A HEATING PAD FOR HER RIGHT BACK AND AN ENEMA SHE IS "CONSTIPATED AND HASN'T POOPED IN 5 DAYS." ATTENDING PROVIDER WAS NOTIFIED AND ORDERED A TAP WATER ENEMA THAT WAS ADMINISTERED BY NURSING STAFF. ENEMA WAS SUCCESSFUL PT HAD A BOWEL MOVEMENT. A HEATING PAD WAS PLACED ON PT'S RIGHT SIDE WITH PARTIAL PAIN RELIEF. PT REPORTED NAUSEA AND DIZZINESS. WAS EDUCATED TO RISE SLOWLY AND TAKE DEEP BREATHS. PRN NAUSEA MEDICATION WAS ADMINISTERED IVP. PT IS CURRENTLY IN BED WITH CALL LIGHT IN REACH. NURSE WILL CONTINUE TO MONITOR.
[2019-02-06 20:33] VITALS: BP 148/86
--- NOTE | 2019-02-07 03:57 | NUR ---
ASSUMED CARE FROM DAY SHIFT PT VISITING WITH FAMILY AND EATING FRIED CHICKEN, DEIES SOA AT TIME OF ASSESMENT . LUNG SOUND WITH WHEEZES THROUGHOUT SAT 99& DRY COUGH NOTED. PT REQESTED RESP TREATMENT X1 THIS SHIFT. PT ALSO C/O AND BACK AND KNEE PAIN NORCO GIVEN AND PT SOON FELL ASLEEP. PT WORE BIPAP HALF THIS SHIFT THEN REQUESTED TO BE TAKEN OFF. SAT 100% ON ROOM AIR. RESTED WELL THROUGHOUT HOURLY ROUNDS, WILL CONITINUE WITH CURRENT PLAN OF CARE, AND REPORT CHANGES.
[2019-02-07 08:10] VITALS: BP 146/72
[2019-02-07 16:22] VITALS: BP 136/64
--- NOTE | 2019-02-07 19:14 | NUR ---
Assumed patient care at 0715. Patient's vital signs have been stable throughout this shift. She has complained of "rib pain" that she reports partial relief for. At 1610, she complained that her pain medication was not working, therefore was given Fentanyl 1mL IV push; she did report that this medication did take care of her rib pain. Patient was given Insulin Lispro 3 Units at Dinnertime for a blood sugar of 174; she did not require Insulin at any other time during this shift. Patient has not been compliant with Fall Risk Precautions, has been educated not to get up without calling for help from staff when transferring to and from bathroom, ect. Will report to on-coming nurse.
[2019-02-07 20:25] VITALS: BP 130/79
[2019-02-08 05:41] LABS: CALCIUM 8.5 mg/dL (8.5-10.1); CREATININE 1.7 mg/dL (0.6-1.0); POTASSIUM 3.6 mmol/L (3.5-5.1)
--- NOTE | 2019-02-08 08:11 | NUR ---
PROGRESS PT A/O X4 C/O RIB PAIN AT A LEVEL OF 6 TO 10. TAKING FENTANYL AND HYDROCODONE WITH SOME RELIEF. REQUESTED THE FENTANYL FOR NIGHT IT HELPS HER SLEEP. GUAFENSIN COUGH SYRUP GIVEN X 2 WITH SOME EFFECT. PT WEARING 2 LITERS OF O2 WITH CPAP AND RT TX'S BLED IN. PT HAS A FREQUENT TIGHT COUGH AND IS NOT BRINGING UP ANY SPUTUM. CUP AT BEDSIDE FOR SPUTUM FOR C&S WHEN OBTAINED. RT TREATMENTS GIVEN Q4HRS WITH SOME EFFECT. CONTINUE TO MONITOR
[2019-02-08 08:22] VITALS: BP 147/75
[2019-02-08 15:22] VITALS: BP 125/78
--- NOTE | 2019-02-08 17:56 | NUR ---
Assumed patient care at 0715. Patient continues to have audible wheezes, notable weakness and shortness of breath upon ambulation. She continues to require stand-by assist upon ambulation to and from the bathroom and assistance upon transferring from bed to chair. Patient needs reminders to call for help as she continues to be a fall risk. Yellow socks are in place. Vital signs have been stable. Patient wishes to continue on the same medications at Discharge, as she states "my blood pressure hasn't been this good in a long time!" Dr Kuhn came to visit patient today, mentioned possible Discharge tomorrow. Patient is upset about this, would like to stay at least one more day and night, as she is concerned about her wheezes and shortness of breath. POC followed. Will continue to monitor.
[2019-02-08 19:05] VITALS: BP 131/74
--- NOTE | 2019-02-09 02:28 | NUR ---
PATIENT AOX4 MAKES NEEDS KNOWN. PATIENT AMBULATES WITH A WALKER WITH STEADY GAITS. PATIENT HAS A NON PRODUCTIVE COUGH PRN COUGH MEDICATION GIVEN. PATIENT IS SHORT OF AIR WITH ACTIVITIES. O2 SAT IS >95% THIS SHIFT.PATIENT ENCOURAGED FLUIDS. PATIENT IN BED ASLEEP AT THIS TIME BREATHING REGULAR AND UNLABOURED.
[2019-02-09 08:00] VITALS: BP 134/88
[2019-02-09 10:23] LABS: CALCIUM 9.1 mg/dL (8.5-10.1); CREATININE 1.7 mg/dL (0.6-1.0); POTASSIUM 3.6 mmol/L (3.5-5.1)
--- NOTE | 2019-02-09 12:18 | NUR ---
PT ASSESSMENTS DOCUMENTED. VSS. PATIENT COMPLAINS OF COUGH AND WHEEZING. SHORTNESS OF BREATH WITH ACTIVITY. NO NEEDS FOR OXYGEN, SATS ADEQUATE. WORKED WITH PT/OT THIS AM. SITTING IN CHAIR WITH ALARM ON. PRN ZOFRAN GIVEN PER REQUEST. PLAN FOR PATIENT TO DISCHARGE TO SKILLED FACILITY POTENTIALLY TOMORROW.
[2019-02-09 14:00] VITALS: BP 140/69
--- NOTE | 2019-02-09 14:30 | NUR ---
AWAITING INSURANCE AUTH FOR PT TO GO TO [facility] THEY INDICATED THEY ARE ABLE TO TAKE PT TODAY OR TOMORROW. THEY REQUESTED UPDATED CLINICAL UPDATES THEY ARE TO BE SENT ONCE ATAINABLE. IT IS ANTICIPATED THAT PT IS TO GO [facility]. CM TO FOLLOW INDICATED WITH DC PLANNING.
--- NOTE | 2019-02-09 15:25 | NUR ---
SW reviewed chart and spoke with nursing and attending physician. Pt was [facility] to [facility] earlier today. Awaiting insurance authorization for pt to go to [facility]. production control planner faxed updated clinical and therapy notes to [facility]. LOIS is following to assist as needed with discharge planning.
--- NOTE | 2019-02-09 17:59 | NUR ---
Patient was transferred to [facility] this afternoon for continued care. Vitals have been stable throughout this shift. No concerns, POC followed.
--- NOTE | 2019-02-09 19:44 | NUR ---
PATIENT TRANSFERRED FROM [facility], REPORT RECEIVED FROM XIN/RN. PATIENT ALERT AND ORIENTED X 3-4. PATIENT DENIES PAIN UPON ARRIVAL TO THE UNIT. BLOOD SUGAR MONITORING ORDERED, BLOOD SUGAR 152, 3 UNITS GIVEN PER S/S FOR DINNER. PATIENT HAS COUGH AT TIMES, ROOM AIR, CPAP AT NOC WITH O2 AT 2 LITERS/NC. WEARS BRIEFS, CAN BE INCONTINENT/STRESS. PATIENT CALM THIS SHIFT, BUT CAN BE ANXIOUS AT TIMES. STROKE 1 MONTH AGO, HAS TREMORS IN HANDS. WAITING ON [employer] [facility]. FALL PRECAUTIONS IN PLACE, PATIENT INSTRUCTED TO CALL FOR ASSISTANCE. UP WITH SBA WITH GAIT BELT AND WALKER. WILL CONTINUE TO MONITOR.
[2019-02-09 22:00] VITALS: BP 158/97
--- NOTE | 2019-02-10 05:15 | NUR ---
ASSUMED CARE OF PATIENT AT 2129. ASSESSMENT CHARTED. MEDICATIONS GIVEN PER MAR WITH ASSIST FROM PARKER Yin RN. PATIENT PRESENTS A&OX4 BUT APPEARS TO DISPLAY SOME FORGETFULNESS. BP ELEVATED; CLONIDINE ADMINISTERED. ALL OTHER VSS. PATIENT IS UP X 1 WITH A WALKER. PATIENT STATES SHE IS HAVING SOME ANXIETY AND PAIN. PATIENT WAS GIVEN PRN SLEEP, PAIN, AND COUGH MEDICATION THIS SHIFT. PATIENT CONTINUES TO COMPLAIN OF COUGH STATING "IT GETS WORSE AT NIGHT" PATIENT RECIEVING RT TX AND ON BIPAP W/ 2L THIS SHIFT. FALL PRECAUTIONS IN PLACE; PATIENT IS CALLING OUT FOR ASSISTANCE NEEDED. WILL CONTINUE TO MONITOR AND FOLLOW PLAN OF CARE. AWAITING AUTH. FROM [employer]
[2019-02-10 06:51] VITALS: BP 152/87
[2019-02-10] MEDS ORDERED: PULMICORT0.5 MG/21 INH (13:30)
[2019-02-10] MEDS ORDERED: MELATONIN5 M1 PO (13:30)
[2019-02-10] MEDS ORDERED: RAYOS5 MG PO (13:30)
[2019-02-10] MEDS ORDERED: GUAIFEN-CODEINE10 ML PO (13:30)
[2019-02-10] MEDS ORDERED: DOXYCYCLINE HYC50 MG PO (13:30)
[2019-02-10] MEDS ORDERED: VALTREX 500 MG500 MG PO ×2 (13:30)
--- NOTE | 2019-02-10 14:18 | NUR ---
DISCHARGE NOTE: SW reviewed chart and spoke with nursing and attending physician. Pt is medically stable for discharge to [facility] today. Insurance authorization obtained. SW met with pt at bedside to provide update and discuss discharge plan. Pt is aware and in agreement with plan. meeting planner to fax final discharge orders/summary when available. Awaiting transportation time. Chart copy requested. Nursing to call report. No additional SW needs identified at this time, but is available to assist should needs arise.
[2019-02-10 15:36] VITALS: BP 128/68
== END 2019-02-10 17:11 | DRG 191 ==
LOC: ER 10:17 → EROBS 14:31 → 4W 14:31 → 4N 02-09 17:34
PROVIDERS: Emergency Medicine; ADMIT Hospitalist
PROC: 5A09357 Assistance with Respiratory Ventilation, Less than 24 Consecutive Hours, Continuous Positive Airway Pressure (ICD-10-PCS; principal; 2019-02-04)
PROC: 5A09357 Assistance with Respiratory Ventilation, Less than 24 Consecutive Hours, Continuous Positive Airway Pressure (ICD-10-PCS; 2019-02-05)
PROC: 5A09357 Assistance with Respiratory Ventilation, Less than 24 Consecutive Hours, Continuous Positive Airway Pressure (ICD-10-PCS; 2019-02-06)
PROC: 5A09357 Assistance with Respiratory Ventilation, Less than 24 Consecutive Hours, Continuous Positive Airway Pressure (ICD-10-PCS; 2019-02-07)
PROC: 5A09357 Assistance with Respiratory Ventilation, Less than 24 Consecutive Hours, Continuous Positive Airway Pressure (ICD-10-PCS; 2019-02-08)
PROC: 5A09357 Assistance with Respiratory Ventilation, Less than 24 Consecutive Hours, Continuous Positive Airway Pressure (ICD-10-PCS; 2019-02-09)
PROC: 5A09357 Assistance with Respiratory Ventilation, Less than 24 Consecutive Hours, Continuous Positive Airway Pressure (ICD-10-PCS; 2019-02-10)
DX: J44.1 Chronic obstructive pulmonary disease with (acute) exacerbation (principal); J45.901 Unspecified asthma with (acute) exacerbation; N17.9 Acute kidney failure, unspecified; J96.10 Chronic respiratory failure, unspecified whether with hypoxia or hypercapnia; I74.9 Embolism and thrombosis of unspecified artery; I69.354 Hemiplegia and hemiparesis following cerebral infarction affecting left non-dominant side; J44.0 Chronic obstructive pulmonary disease with (acute) lower respiratory infection; J20.9 Acute bronchitis, unspecified; I12.9 Hypertensive chronic kidney disease with stage 1 through stage 4 chronic kidney disease, or unspecified chronic kidney disease; G89.4 Chronic pain syndrome; E78.00 Pure hypercholesterolemia, unspecified; E03.9 Hypothyroidism, unspecified; K21.9 Gastro-esophageal reflux disease without esophagitis; E11.22 Type 2 diabetes mellitus with diabetic chronic kidney disease; N18.3 Chronic kidney disease, stage 3 (moderate); Z74.1 Need for assistance with personal care; F03.90 Unspecified dementia, unspecified severity, without behavioral disturbance, psychotic disturbance, mood disturbance, and anxiety; G47.33 Obstructive sleep apnea (adult) (pediatric); N32.81 Overactive bladder; I69.320 Aphasia following cerebral infarction; Z95.828 Presence of other vascular implants and grafts; Z86.711 Personal history of pulmonary embolism; Z90.710 Acquired absence of both cervix and uterus; Z88.0 Allergy status to penicillin; Z88.2 Allergy status to sulfonamides; Z88.8 Allergy status to other drugs, medicaments and biological substances; Z82.49 Family history of ischemic heart disease and other diseases of the circulatory system; Z91.19 Patient's noncompliance with other medical treatment and regimen; Z79.899 Other long term (current) drug therapy
CPT/HCPCS: 10040; 10790

== ENCOUNTER → 2019-05-22 | Outpatient (CLI) | payer OTHER ==
[~2019-05-22] VITALS: Ht 160 cm; Wt 83.6 kg
[~2019-05-22] MED LIST changes: +DOXYCYCLINE HYC50 MG PO; +GUAIFEN-CODEINE10 ML PO; +MELATONIN5 M1 PO; +PULMICORT0.5 MG/21 INH; +RAYOS5 MG PO
[2019-05-22 13:14] VITALS: BP 143/93
--- NOTE | 2019-05-22 13:21 | NUR ---
Pain Clinic Assessment: 1. History of Osteoarthritis: HANDS KNEES BACK History of Rheumatoid Arthritis: Not Applicable 2. Height: 5 ft. 3 in. 160.0 cm. Weight: 184.4 lb. oz. 83.643 kg. Patient's BMI: 32.7 3. Vital Signs: BP: 143/93 Pulse: 54 Resp: 18 Temp: 02 Sat: 95 ECG Mon: 4. Pain Intensity: 7 5. Fall Risk: Dizziness: N Needs help standing or walking: Y Fallen in the last 3 months: N Fall risk comments: USES CANE 6. Patient on Blood Thinner: Y 7. History of Hypertension: Y 8. Opioid Therapy greater than 6 weeks: Y Opiate Contract Signed: 12/12/16 9. Risk Assessment Tool Provided: 0-LOW 10. Functional Assessment Tool: 11. Recreational Drug Use: Never Drug Type: Tobacco Use: Never Smoker Tobacco Type: Amount or Packs/day: How Many Years: Alcohol Use: No Frequency: Quant:
--- NOTE | 2019-06-05 08:21 | HPC ---
[facility] [address] [address] [address] PAIN MANAGEMENT CONSULTATION Name: ILEANA CASE Room #: REG [facility].#: [id number] Admission: 05/22/19 Attend Phys: Radha Terrell Discharge: Date of : 44 Report #: [id number] THIS REPORT FOR: cc: Parmjit Ramon,Indy Hollins MD ~ CC: Radha Ramon DATE OF SERVICE: 05/22/2019 She was seen in the past Dr. Parmjit Ramon as well as Dr. Keshia Cardozo. CHIEF COMPLAINT: Here for medications. HISTORY: The patient is a 79-year-old female who has been followed in the pain clinic for quite some time. As you recall, she has had quite a tumultuous history. She returns today indicating that her pain medications are desired. She continues to have back pain. She has had back surgery. She has been in the care home. Does continue to have weakness in her left arm. Continues to have some shaking in her right hand and left hand. She has had a stroke. She is living with her daughter. She walks with assistance and uses a rolling wheelchair. She has returned today with the hopes of renewing her medications. ALLERGIES: PENICILLIN. CURRENT MEDICATIONS: Pulmicort nebulizer for COPD, guaifenesin/codeine p.r.n. cough, MiraLax 17 grams, Flonase 0.05% nasal spray, Neurontin 300 mg t.i.d., Namenda 5 mg b.i.d., clopidogrel 75 mg, primidone for tremors, Singulair 10 mg, Carafate solution 4 times daily, albuterol, oxybutynin 5 mg, iron 325 mg, Aricept 10 mg, Nexium 40 mg, Zofran 4 mg, Synthroid 75 mcg, Lipitor 20 mg, vitamin D3, vitamin C 500 mg, multiple vitamins, clonidine 0.3 mg t.i.d. PAIN CLINIC ASSESSMENT/PQRS: 1. The patient has a history of osteoarthritis involving her hands, knees, has had significant back surgery. She is not being treated for rheumatoid arthritis. 2. Height 5 feet 3 inches, weight 184 pounds, BMI is 32.7. 3. Vital signs: Blood pressure 143/92, pulse 54, respiratory rate 18, room air saturation 95%. 4. Pain intensity 7/10. 5. Fall history: The patient has not fallen, but does use a cane. 6. Blood thinner. The patient is on a blood thinning medication. 7. Hypertension. The patient is being treated for hypertension. [address] [address] PAIN MANAGEMENT CONSULTATION Name: ILEANA CASE Room #: REG [facility] Jennifer.#: [id number] Admission: 05/22/19 Attend Phys: Radha Terrell Discharge: Date of : 44 Report #: [id number] 8. Opioids greater than 6 weeks. 9. The patient continues with her current medications and is followed in the pain clinic. 10. Functional assessment tool . 11. Recreational drug use: The patient denies. 12. Tobacco: The patient has never smoked. 13. Alcohol. The patient denies frequent use of alcoholic beverages. PHYSICAL EXAMINATION: GENERAL: The patient is a well-developed, well-nourished black female, appears her stated age. She is alert and oriented x 3. Her affect is appropriate. Speech is fluent. HEENT: Normocephalic, atraumatic. Extraocular eye muscles intact. Sclerae nonicteric. Mucous membranes moist. NECK: Without adenopathy. HEART: Regular. ABDOMEN: Nontender. Bowel sounds present. CHEST: Decreased breath sounds. EXTREMITIES: Upper extremity strength 4+/5 on the right and 3+/5 on the left. The patient notices some weakness on her left side. 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 The patient ambulates using a cane. IMPRESSION: 1. The patient is status post CVA with left-sided weakness. 2. Failed back syndrome with continued pain radiating down the legs. 3. Continue myofascial pain involving shoulders. 4. Cervical pain involving the right arm with radiation down into her fingers. 5. Jitteriness. The patient is using Requip and another medication. 6. Chronic obstructive pulmonary disease. 7. Oxygen at night. 8. Hypothyroidism. 9. Gastroparesis. 10. History of inferior vena cava filter. 11. 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 12. Asthma. 13. Shingles. RECOMMENDATIONS: We discussed treatment options with the patient. At this juncture, we will continue with her medications. We explained to the patient the need to proceed slowly. The patient was on MS Contin and hydrocodone in November. We will have the patient try hydrocodone 5 mg one p.o. t.i.d. We would like to thank you for letting us to participate in her care. She will call us if she has any concerns. She notes any problems with her breathing. She will stop taking the medication and give us a call. [address] [address] PAIN MANAGEMENT CONSULTATION Name: ILEANA CASE Room #: REG [facility] Rodriguez.#: [id number] Admission: 05/22/19 Attend Phys: Radha Terrell Discharge: Date of : 42 Report #: [id number] We would like to thank you for letting us to participate in her care. We hope she continues to improve. <ELECTRONICALLY SIGNED> By: Indy Marley MD 06/05/19 0821 08 1050 Idny Marley MD /[facility]
== END ==
LOC: PAIN 05-21 07:05
DX: J44.9 Chronic obstructive pulmonary disease, unspecified (principal); E03.9 Hypothyroidism, unspecified; B02.8 Zoster with other complications; G89.29 Other chronic pain

== ENCOUNTER → 2019-07-22 | Outpatient (CLI) | payer OTHER ==
[~2019-07-22] MED LIST changes: +FLONASE 0.05%50 MCG NARES; +NEURONTIN100 MG PO; +PLAVIX 75 MG TA75 MG PO
--- NOTE | 2019-08-26 08:09 | HPC ---
[facility] [address] [address] PAIN MANAGEMENT CONSULTATION Name: ILEANA CASE Room #: REG [facility] Sri.#: [id number] Admission: 07/22/19 Attend Phys: Indy Marley MD Discharge: Date of : 42 Report #: [id number] THIS REPORT FOR: cc: Parmjit Ramon,Indy Hollins MD ~ CC: Parmjit Ayala DATE OF SERVICE: 07/22/2019 This is a tele communications visit. We discussed the visit with the patient. She agrees to the interview. CHIEF COMPLAINT: Continued pain in the low back. HISTORY: She feels that the pain is mostly located in the low back area on the left side. She has had back surgery. She notes that she has increased discomfort with certain activities. She has pain, which was quite problematic. Yesterday, she felt that her pain was a 10/10. Today it is little bit better and she rates it as a 5/10. She has not fallen since we saw her last. Still has some movement in her hands on the right side and left side. She has had a stroke. She gets around in a wheelchair. ALLERGIES: PENICILLIN. CURRENT MEDICATIONS: Pulmicort nebulizer for COPD, codeine/guaifenesin p.r.n. cough, MiraLax 17 grams, Flonase 0.05% nasal spray, Neurontin 300 mg t.i.d., Namenda 5 mg b.i.d., clopidogrel 75 mg, primidone for tremors, Singulair 10 mg, Carafate solution 4 times daily, albuterol, oxybutynin 5 mg, iron 325 mg, Aricept 10 mg, Nexium 40 mg, Zofran 4 mg, Synthroid 75 mcg, Lipitor 20 mg, vitamin D3, vitamin C 500 mg, multiple vitamins, and clonidine 0.3 mg t.i.d. PAIN CLINIC ASSESSMENT/PQRS: 1. The patient has a history of osteoarthritis involving her hands, knees and has had back surgery. She is not being treated for rheumatoid arthritis. 2. Height 5 feet 3 inches. Last weight 184 pounds, BMI 32. 3. Pain intensity is 10/10. 4. Fall history: The patient has not fallen since we saw her last. Does use a cane. Does ambulate in a wheelchair. 5. Blood thinner. The patient is on a blood thinning medication. 6. Hypertension. The patient is being treated for hypertension. 7. Opioids greater than 6 weeks. The patient receives medication from the Pain Clinic. 8. Functional assessment tool, . [place] [address] PAIN MANAGEMENT CONSULTATION Name: ILEANA CASE Room #: REG [facility] Yoel#: [id number] Admission: 07/22/19 Attend Phys: Indy Marley MD Discharge: Date of : 42 Report #: [id number] 9. Recreational drug use. The patient denies use of recreational drugs. 10. Tobacco: The patient has never smoked. 11. Alcohol. The patient denies use of alcoholic beverages. PHYSICAL EXAM/REVIEW OF SYSTEMS: GENERAL: The patient is a well-developed white female. She appears alert and oriented on the phone. Speech is fluent. The patient has no new complaints of ear, eyes, nose or throat problems. NECK: Without adenopathy. EXTREMITIES: The patient is using 2 liters of oxygen. Uses CPAP machines at night. The patient denies any new heart irregularities. The patient continues to have some weakness to the upper extremities, left and right. The patient ambulates in a wheelchair and uses a cane. IMPRESSION: 1. History of cerebrovascular accident with continued left sided weakness. 2. Failed back syndrome with pain that radiates down into her legs. 3. Continued myofascial pain involving shoulders. 4. Cervical pain involving the right arm and radiation down into the fingers. 5. Jitteriness. The patient is using Requip. 6. Chronic obstructive pulmonary disease. 7. Oxygen at night. 8. Hypothyroidism. 9. Gastroparesis. 10. History of inferior vena cava filter. 11. Seizures after epidural lumbar laminectomy surgery. 12. Asthma. 13. Shingles. RECOMMENDATIONS: We discussed treatment options with the patient. At this juncture, she feels that her pain is problematic. She has used opioids in the past. She would like to proceed with renewal of her medication. She feels that the opioid medications have been helpful. She has not been on them for a number of weeks. We explained that we will try at a low dose and increase this as she is able to tolerate it. The patient will take hydrocodone 5 mg 1 p.o. q. 4-6 hours p.r.n. for pain. A script for these medications have been forwarded to her pharmacy. She will call us if she has any concerns. We would like to thank you for letting us participate in her care. The patient is afraid of coming out secondary to the COVID-19 pandemic. We will see her in the future as soon as she is able to make it to the Pain Clinic. [address] [address] PAIN MANAGEMENT CONSULTATION Name: ILEANA CASE Room #: REG [facility].#: [id number] Admission: 07/22/19 Attend Phys: Indy Marley MD Discharge: Date of : 42 Report #: [id number] We would like to thank you for letting us participate in her care. We hope she continues to improve. <ELECTRONICALLY SIGNED> By: Indy Marley MD 08/26/19 0809 1420 0115 Indy Marley MD /nt
== END ==
LOC: TELEPC 06:52 → PAIN 06:52
PROVIDERS: ATTEND Anesthesiology Pain Medicine
DX: M54.5 Low back pain (principal); M25.511 Pain in right shoulder; M25.512 Pain in left shoulder; B02.9 Zoster without complications; J45.909 Unspecified asthma, uncomplicated; M96.1 Postlaminectomy syndrome, not elsewhere classified; K31.84 Gastroparesis; E03.9 Hypothyroidism, unspecified; J44.9 Chronic obstructive pulmonary disease, unspecified; R45.89 Other symptoms and signs involving emotional state; M79.10 Myalgia, unspecified site; Z95.828 Presence of other vascular implants and grafts; Z99.81 Dependence on supplemental oxygen; Z88.0 Allergy status to penicillin; Z79.899 Other long term (current) drug therapy

== ENCOUNTER → 2019-09-16 | Outpatient (CLI) | payer OTHER ==
--- NOTE | 2019-09-16 12:22 | HPC ---
[facility] [place] [address] [place] [address] PAIN MANAGEMENT CONSULTATION Name: ILEANA CASE Room #: REG [facility].#: [id number] Admission: 09/16/19 Attend Phys: Radha Terrell Discharge: Date of : 42 Report #: [id number] THIS REPORT FOR: cc: Parmjit Ramon David J. DO Hocker, Amanda CNS ~ CC: Radha Marley MD DATE OF SERVICE: 09/16/2019 This is a TeleMed appointment due to the patient being of ill health at home. She has agreed to this TeleMed appointment from 9:55 to 10:10. CHIEF COMPLAINT: Chronic low back pain. HISTORY OF PRESENT ILLNESS: This is a 79-year-old female who I am speaking with via the telephone today for a TeleMed appointment. She reports a pain score to me today of 7/10 in her lower back. She states that it does radiate down her right leg as well. There is an aching feeling with any activity. She feels that the medications we provide her of hydrocodone as well as a heating pad are beneficial in helping her low back pain. She denies any falls or problems with constipation since we have last spoken with her. The patient does report that she was recently hospitalized since her last TeleMed appointment with her in July for kidney infection at [facility]. She then went to [facility] for some rehabilitation. Throughout that time, she was prescribed hydrocodone from the hospitalist at [facility] as well as Lucio Sifuentes physician. She has not filled any of our opioids since July at her last appointment. She is appropriate for her fills according to the PDMP for these medications today. ALLERGIES: PENICILLIN. CURRENT LIST OF MEDICATIONS: MiraLax, gabapentin, amlodipine, hydralazine, Namenda, Plavix, primidone, hydrocodone, Singulair, Carafate, oxybutynin, Aricept, Nexium, Zofran, levothyroxine, Lipitor, vitamin D, vitamin C, multivitamin, and clonidine. PQRS: 1. She has a history of osteoarthritis involving her hands, knees and back. She is not being treated for rheumatoid arthritis. Since this is a TeleMed appointment, we did not do vital signs or height and weight. 2. Pain score is 7/10. 3. Fall history. The patient has not fallen per her report since our last visit. She uses a cane and a wheelchair. [facility] [address] [place] [address] PAIN MANAGEMENT CONSULTATION Name: ILEANA CASE [id number] Admission: 09/16/19 Attend Phys: Radha Terrell Discharge: Date of : 44 Report #: [id number] 4. The patient is on a blood thinner, Plavix. She also takes medicine for hypertension. 5. Opioid therapy is greater than 6 weeks and does have an opioid signed contract on the chart. Her risk assessment is low. Functional assessment is 22/70. 6. Recreational drug use, she denies. She does not smoke and does not use alcohol. PHYSICAL EXAMINATION: GENERAL: This is a review of systems. This is a well-developed white female. She is alert and orientated on the phone, answering all my questions appropriately. Her speech is fluent. She rates her pain score at 7/10 today. HEENT: The patient reports no problems with her eyes, ears or throat. She states she does wear oxygen 2 liters at night and does use a CPAP machine. EXTREMITIES: Pain is across her lower lumbar region that does radiate into her right leg. Pain is increased per her report. For ambulation, she does use a cane and a wheelchair for assistance. IMPRESSION: 1. History of cerebrovascular accident, continued left sided weakness. 2. Failed back syndrome. 3. Lumbar radiculopathy. 4. Myofascial pain involving shoulders. 5. Cervical pain with cervical radiculopathy. 6. Chronic obstructive pulmonary disease. 7. Complex medical management under terms of written opioid agreement. 8. History of seizures. RECOMMENDATIONS: 1. We discussed treatment options with the patient today. The patient had filled several small scripts of opioid medications from [facility] as well as Lucio Sifuentes, we discussed this. The patient had taken all these medications. She will need to continue on her hydrocodone 5/325. She takes one tablet 4 times a day. This is beneficial in helping reduce her pain. The short scripts that she did receive were for the strength of 10/325 hydrocodone. Today, we will have Dr. Jai Marley send #120 of her hydrocodone to her [place] pharmacy for today and 4-week supply. 2. I did discuss with the patient that hopefully in November, she will be able to come for an appointment here in the clinic. The patient verbalizes understanding. 3. The patient continues to be safe at home and has not had any illnesses as related to the COVID outbreak due to her immunosuppressed state. She is [facility] [address] [place] [address] PAIN MANAGEMENT CONSULTATION Name: ILEANA CASE Room #: [facility] Yoel#: [id number] Admission: 09/16/19 Attend Phys: Radha Terrell Discharge: Date of : 44 Report #: [id number] staying at home except for her hospitalizations. 4. The patient has discussed in collaboration with Dr. Donell carrillo. <ELECTRONICALLY SIGNED> By: Radha Terrell 09/16/19 1222 [id number] [id number] Radha Terrell /thiago
== END ==
LOC: TELEPC 06:52
PROVIDERS: ATTEND Clinical Nurse Specialist Adult Health
DX: M54.16 Radiculopathy, lumbar region (principal); M96.1 Postlaminectomy syndrome, not elsewhere classified; M25.511 Pain in right shoulder; M25.512 Pain in left shoulder; M54.12 Radiculopathy, cervical region; J44.9 Chronic obstructive pulmonary disease, unspecified; F11.20 Opioid dependence, uncomplicated; Z86.69 Personal history of other diseases of the nervous system and sense organs; Z86.73 Personal history of transient ischemic attack (TIA), and cerebral infarction without residual deficits; Z88.0 Allergy status to penicillin; Z79.899 Other long term (current) drug therapy

== ENCOUNTER → 2019-10-21 | Outpatient (CLI) | payer OTHER ==
[~2019-10-21] VITALS: Ht 160 cm; Wt 83.8 kg
[~2019-10-21] MED LIST changes: +CELEXA10 MG PO; +HYDRALAZINE 5050 MG PO; +LOPRESSOR50 MG PO; +TORSEMIDE20 MG PO; +TRAZODONE HCL50 MG PO
[2019-10-21 12:33] VITALS: BP 200/107
--- NOTE | 2019-10-21 12:45 | NUR ---
Pain Clinic Assessment: 1. History of Osteoarthritis: HANDS KNEES BACK History of Rheumatoid Arthritis: Not Applicable 2. Height: 5 ft. 3 in. 160.0 cm. Weight: 184.8 lb. oz. 83.825 kg. Patient's BMI: 32.7 3. Vital Signs: BP: 200/107 Pulse: 65 Resp: 16 Temp: 02 Sat: 100 ECG Mon: 4. Pain Intensity: 6 5. Fall Risk: Dizziness: N Needs help standing or walking: Y Fallen in the last 3 months: N Fall risk comments: USES CANE 6. Patient on Blood Thinner: Clopidogrel Bisulf(Plavix 7. History of Hypertension: Y 8. Opioid Therapy greater than 6 weeks: Y Opiate Contract Signed: 12/12/16 9. Risk Assessment Tool Provided: 0-LOW 10. Functional Assessment Tool: 11. Recreational Drug Use: Never Drug Type: Tobacco Use: Never Smoker Tobacco Type: Amount or Packs/day: How Many Years: Alcohol Use: No Frequency: Quant:
--- NOTE | 2019-11-05 13:25 | HPC ---
[facility] [place] [address] PAIN MANAGEMENT CONSULTATION Name: ILEANA CASE Room #: [facility]#: [id number] Admission: 10/21/19 Attend Phys: Indy Marley MD Discharge: Date of : 44 Report #: [id number] THIS REPORT FOR: cc: Parmjit Ramon David J. DO Brown, N. Wayne MD ~ CC: Parmjit Marley DATE OF SERVICE: 10/21/2019 PRIMARY CARE PHYSICIAN: Parmjit Ramon DO CHIEF COMPLAINT: Pain in the left leg and back. HISTORY: The patient is a 79-year-old female who has been followed in the pain clinic because of chronic pain. She has pain in her back, which she rates as a 6/10. It radiates down into her left leg. As you may recall, she has had significant surgery in the low back area. She feels that her medications are helpful. They are not as effective as she would like, but they still are beneficial. She is walking with assistance. She does use a rolling walker at home. She still has some shaking in her hands. She has returned today for renewal of her medications. ALLERGIES: PENICILLIN. CURRENT MEDICATIONS: Namenda 5 mg b.i.d., Plavix 75 mg, Pulmicort b.i.d., Norvasc 10 mg, albuterol inhaler p.r.n., asthma/COPD, Aricept 10 mg, Nexium 40 mg, ondansetron 4 mg, Celexa 10 mg, hydralazine 50 mg b.i.d., torsemide 20 mg, metoprolol 50 mg b.i.d., Desyrel 50 mg, multivitamins, vitamin D3 2000 units, levothyroxine 75 mcg, vitamin C 500 mg, Lipitor 20 mg, iron 325 mg, Carafate 1 gram, primidone for tremors 50 mg, MiraLax 17 grams, Flonase 0.5% spray. PAIN CLINIC ASSESSMENT AND PQRS: 1. The patient has a history of osteoarthritis involving her hands, knees and has had back surgery. She is not being treated for rheumatoid arthritis. 2. Height 5 feet 3 inches, weight 184 pounds, BMI is 32. 3. Vital signs: Blood pressure is 200/107, pulse 65, respiratory rate 16, room air saturation 100%. 4. Pain intensity 6/10. 5. Fall history: The patient has not fallen since we saw her last. She does walk and uses a cane. 6. Blood thinner. The patient is on a blood thinning medication Plavix. 7. History of hypertension. The patient is being treated for hypertension. 8. Opioids greater than 6 weeks. The patient receives medications from the pain clinic. [address] [address] PAIN MANAGEMENT CONSULTATION Name: ILEANA CASE Room #: [facility]#: [id number] Admission: 10/21/19 Attend Phys: Indy Marley MD Discharge: Date of : 44 Report #: [id number] 9. Risk assessment tool, low for opioid use. 10. Functional assessment tool . 11. Recreational drug use. The patient denies. 12. Tobacco: The patient has never smoked. 13. Alcohol. The patient denies frequent use of alcoholic beverages. PHYSICAL EXAMINATION: GENERAL: The patient is a well-developed, well-nourished black female, appears her stated age. She is alert and oriented x 3. Her affect is appropriate. Speech is fluent. HEENT: Normocephalic, atraumatic. Extraocular eye muscles intact. Sclerae nonicteric. Mucous membranes are moist. The patient is accompanied. NECK: Without adenopathy. HEART: Regular. The patient is on 2 liters of oxygen at night. The patient uses CPAP machine. EXTREMITIES: Upper extremity muscle strength judged to be 4+/5. The patient has some movement involving her hands consistent with tremors. Lower extremity muscle strength judged to be 4+/5 for the major muscle groups in the lower extremity. The patient has weakness in her lower left and right extremity. Ambulates using a wheelchair and with a cane. IMPRESSION: 1. History of cerebrovascular accident with continued left sided weakness. 2. Failed back syndrome with pain radiating down into her legs. 3. Continue myofascial pain involving the shoulders. 4. Cervical involvement in her right arm with radiation down to her fingers. 5. Jitteriness/tremors. The patient is using Requip. 6. Chronic obstructive pulmonary disease. 7. Oxygen at night. 8. Hypothyroidism. 9. Gastroesophageal reflux. 10. History of inferior vena cava filter. 11. Seizures after epidural laminectomy. 12. History of asthma. 13. Shingles history. RECOMMENDATIONS: We discussed treatment options with the patient. At this juncture, we will continue with her medications. She feels the medications are helpful. They are not as effective as she would like, but they are beneficial. A script for her medications have been rewritten. She will continue with hydrocodone 7.5 mg 1 p.o. 4 times daily. She was on 7.5 mg tablets. Because of her continued pain, we will increase this to 7.5 mg tablet. She will call us if she has any concerns. A script for these medications have been forwarded to her pharmacy. [facility] [address] [place] [address] PAIN MANAGEMENT CONSULTATION Name: ILEANA CASE Room #: [facility].#: [id number] Admission: 10/21/19 Attend Phys: Indy Marley MD Discharge: Date of : 44 Report #: [id number] We would like to thank you for letting us participate in her care. We hope she continues to improve. <ELECTRONICALLY SIGNED> By: Indy Marley MD 11/05/19 1325 [id number] [id number] Indy Marley MD /PMT
== END ==
LOC: PAIN 06:57
PROVIDERS: ATTEND Anesthesiology Pain Medicine
DX: M79.605 Pain in left leg (principal); M79.604 Pain in right leg; M25.511 Pain in right shoulder; M25.512 Pain in left shoulder; R53.1 Weakness; M54.9 Dorsalgia, unspecified; J44.9 Chronic obstructive pulmonary disease, unspecified; I10 Essential (primary) hypertension; M79.18 Myalgia, other site; E03.9 Hypothyroidism, unspecified; K21.9 Gastro-esophageal reflux disease without esophagitis; Z88.0 Allergy status to penicillin; Z68.32 Body mass index [BMI] 32.0-32.9, adult; Z79.899 Other long term (current) drug therapy; Z86.73 Personal history of transient ischemic attack (TIA), and cerebral infarction without residual deficits

== ENCOUNTER → 2020-01-13 | Outpatient (CLI) | payer OTHER ==
[~2020-01-13] VITALS: Ht 160 cm; Wt 83.6 kg
[2020-01-13 10:19] VITALS: BP 151/92
--- NOTE | 2020-01-13 10:33 | NUR ---
Pain Clinic Assessment: 1. History of Osteoarthritis: HANDS KNEES BACK History of Rheumatoid Arthritis: Not Applicable 2. Height: 5 ft. 3 in. 160.0 cm. Weight: 184.4 lb. oz. 83.643 kg. Patient's BMI: 32.7 3. Vital Signs: BP: 151/92 Pulse: 72 Resp: 16 Temp: 02 Sat: 100 ECG Mon: 4. Pain Intensity: 8 5. Fall Risk: Dizziness: N Needs help standing or walking: Y Fallen in the last 3 months: N Fall risk comments: USES CANE 6. Patient on Blood Thinner: Clopidogrel Bisulf(Plavix 7. History of Hypertension: Y 8. Opioid Therapy greater than 6 weeks: Y Opiate Contract Signed: 12/12/16 9. Risk Assessment Tool Provided: 0-LOW 10. Functional Assessment Tool: 11. Recreational Drug Use: Never Drug Type: Tobacco Use: Never Smoker Tobacco Type: Amount or Packs/day: How Many Years: Alcohol Use: No Frequency: Quant:
--- NOTE | 2020-01-14 10:05 | HPC ---
[facility] [address] [place] [address] PAIN MANAGEMENT CONSULTATION Name: ILEANA CASE Room #: [facility].#: [id number] Admission: 01/13/20 Attend Phys: Radha Terrell Discharge: Date of : 44 Report #: [id number] CC: Radha Alvarado MD DATE OF SERVICE: 01/13/2020 CHIEF COMPLAINT: Chronic back pain. HISTORY OF PRESENT ILLNESS: This is a 79-year-old female who is well known to the pain clinic. Today, she is returning for a refill of her hydrocodone. She is reporting a pain score of an 8/10, which is slightly elevated for her. She reports most significant pain in her right side of her body going from her arm into her neck as well as her low back into her right hip. It is a constant, sharp pain that is worse with weather changes and prolonged standing and walking. She does believe her medications are beneficial as well as sitting and lying down. The patient reports she takes MiraLax on a daily basis due to her gastroparesis and her opioid medications. She denies any daytime somnolence as a result of her medications. Today, she is requesting refills of her hydrocodone and her clonazepam. ALLERGIES: PENICILLIN, SULFA, CHLORZOXAZONE. MEDICATIONS: Hydrocodone 7.5/325 p.r.n., trazodone, Lopressor, furosemide, hydralazine, Celexa, MiraLax, Namenda, Plavix, Pulmicort, Norvasc, primidone, Carafate, albuterol, iron, Aricept, Nexium, Zofran, Synthroid, Lipitor, vitamin D, vitamin C, multivitamin, and clonazepam. PQRS: 1. She has a history of osteoarthritic changes including her hands, knees and back. She is not being treated for rheumatoid arthritis. 2. Height is 5 feet 3 inches, weight is 184, BMI is 32. 3. Vital signs; blood pressure 151/92, pulse is 72, respirations 16, oxygen sat is 100. 4. Pain score is 8/10. 5. Denies dizziness. Does need assistance with a walker or a cane for ambulation, but has not fallen in the last 3 months. 6. The patient is on Plavix and also being treated for hypertension. 7. Opioid therapy is greater than 6 weeks; therefore, an opioid signed contract is on the chart. Her risk assessment is low. Functional assessment is 22/70. 8. Recreational drug use, she denies. She is not a smoker and denies alcohol. According to the prescription monitoring system, the patient is filling her medications in a timely fashion, though greater than 30 days in between her opioid fills. She does have a benzodiazepine that she fills from her primary doctor's office. Her morphine milliequivalent according to the CDC guidelines is 30. PHYSICAL EXAMINATION: GENERAL: This is a well-developed, well-nourished black female who appears her stated age. She is alert and orientated. Her affect is appropriate. HEENT: Normocephalic, atraumatic. Extraocular eye muscles are intact. Sclerae are nonintrinsic. She is wearing a mask. NECK: Without adenopathy or JVD. EXTREMITIES: Upper extremity strength is slightly diminished at 4/5. In her upper and lower extremities she has weakness. Pain and tenderness in her lumbosacral region that does radiate down her leg into her right hip and pain in her cervical region that radiates into her right arm as well. She is using a cane for ambulation and has an antalgic gait. IMPRESSION: 1. History of cerebrovascular accident with left sided weakness. 2. Failed back syndrome. 3. Myofascial pain. 4. Cervical radiculopathy. 5. Lumbar radiculopathy. 6. Chronic obstructive pulmonary disease. 7. Opioid medication management under terms of written agreement. We reviewed the fact that opiate medications are being used to provide analgesia adequate to support activities of daily living, not attempting to achieve a specific pain score on the 0-10 Visual Analog Scale. The current opiate medications are providing sufficient analgesia to allow the patient to participate in activities of daily living. The patient is not exhibiting any aberrant behavior suggestive of drug diversion. The patient is not having any adverse reactions to medications. The patient is not suffering from daytime somnolence or mental acuity changes. The patient is managing opiate-induced constipation with appropriate [id number] agents and dietary considerations. The patient was counseled on concern for caution with operating a motor vehicle while using opiate medications. PLAN: 1. We discussed treatment options with the patient. At this time, we will continue her on her opioid medications of hydrocodone 7.5/325 allowing her 4 tablets a day. I did reiterate to the patient and her family member that she is allowed to take up to 4 tablets a day, but if her pain is subsided on those days too, encouraged her to take less. The patient typically fills every month and a half per the PDMP report. Explained our goal is for her to have pain relief, not come with her medications, allowing her to take a maximum of 4 a day. The patient verbalizes understanding. She was unaware that she could take 4 tablets a day in certain days she does have increased pain. 2. I explained to her that we are not the prescriber for her clonazepam, that is from her primary care office and to contact them for refills of that medication. 3. I did remind the patient that if she does increase her medications to 4 times a day every day that she may experience some increasing constipation issues and to treat that effectively with her MiraLax and increase liquid and fiber. 4. The patient will follow up in 2 months. The patient is seen today in collaboration with Dr. Marley who did send her medications electronically. <ELECTRONICALLY SIGNED> By: Radha Terrell 01/14/20 1005 [id number] 17 Radha Terrell /thiago
== END ==
LOC: PAIN 06:46
PROVIDERS: ATTEND Clinical Nurse Specialist Adult Health
DX: M54.16 Radiculopathy, lumbar region (principal); M54.12 Radiculopathy, cervical region; M79.10 Myalgia, unspecified site; M96.1 Postlaminectomy syndrome, not elsewhere classified; J44.9 Chronic obstructive pulmonary disease, unspecified; F11.20 Opioid dependence, uncomplicated; Z79.899 Other long term (current) drug therapy